=== PATIENT | male | born 1970 | race Caucasian/White ===

== ENCOUNTER 2018-05-14 06:09 | Emergency (ER) | payer SELFPAY ==
[~2018-05-14] VITALS: Ht 185.4 cm; Wt 108.9 kg
[~2018-05-14 06:09] MED LIST: ASP325T; AZIT-21 PO; CLAR-19 PO; GFN600TCR; HYDR-707 PO; HYDR118S10 PO; MUPI1OIN5 NS; PRDM473B PO; SULF1TAB38 PO
--- OUTSIDE RECORDS SUMMARY | 2018-05-14 06:15 | XMS REPORT | Continuity of Care Document ---
Author Author [facility] Address Unknown Phone Unavailable Allergies Active Description Code Type Severity Reaction Onset Reported/Identified Relationship to Patient Clinical Status Yes codeine Drug Allergy N/A N/A 01/11/2009 Yes Penicillins Drug Allergy N/A N/A 01/11/2009 Yes Penicillins [id number] Drug Allergy Mild seizures 04/01/2009 Yes codeine [id number] Drug Allergy Unknown unknown 05/16/2014 Medications There is no data. Problems Date Dx Coded Attending Type Code Diagnosis Diagnosed By 04/01/2008 401.1 HYPERTENSION, BENIGN ESSENTIAL 04/01/2008 DEMETRIO SULTANA APRN 401.1 HYPERTENSION, BENIGN ESSENTIAL 04/15/2008 272.4 HYPERLIPIDEMIA UNSPECIFIED 04/15/2008 305.1 TOBACCO ABUSE 04/15/2008 DEMETRIO SULTANA APRN 272.4 HYPERLIPIDEMIA UNSPECIFIED 04/15/2008 DEMETRIO SULTANA APRN 305.1 TOBACCO ABUSE 01/11/2009 302.72 IMPOTENCE PSYCHOSEXUAL 01/11/2009 DEMETRIO SULTANA APRN 302.72 IMPOTENCE PSYCHOSEXUAL 10/04/2011 466.0 ACUTE BRONCHITIS 10/04/2011 DEMETRIO SULTANA APRN 466.0 ACUTE BRONCHITIS 01/10/2013 133.0 SCABIES 01/10/2013 698.9 PRURITUS NOS 01/10/2013 DEMETRIO SULTANA APRN 133.0 SCABIES 01/10/2013 DEMETRIO SULTANA APRN 698.9 PRURITUS NOS 03/06/2014 DEMETRIO SULTANA APRN 995.3 ALLERGY UNSPECIFIED NOT ELSEWHERE CLASSIFIED 05/16/2014 CAROLINA MALONE MD Ot 787.02 05/16/2014 CAROLINA MALONE MD Ot 787.91 05/16/2014 CAROLINA MALONE MD Ot 789.06 06/02/2014 CAROLINA MALONE MD Ot 922.31 06/02/2014 CAROLINA MALONE MD Ot 959.19 06/02/2014 CAROLINA MALONE MD Ot E000.0 06/02/2014 CAROLINA MALONE MD Ot E849.3 06/02/2014 CAROLINA MALONE MD, Ot E880.9 04/26/2016 ESTRADA PUGA MD Ot R10.84 GENERALIZED ABDOMINAL PAIN 04/26/2016 ESTRADA PUGA MD Ot Z53.21 PROC/TRTMT NOT CRD OUT D/T PT LV BEF SEE 04/30/2016 ESTRADA UPGA MD Ot R10.84 GENERALIZED ABDOMINAL PAIN 04/30/2016 ESTRADA PUGA MD Ot Z53.21 PROC/TRTMT NOT CRD OUT D/T PT LV BEF SEE Procedures There is no data. Results Test Result Range Complete urinalysis with reflex to culture - 04/24/16 23:15 Urine color determination YELLOW NRG Urine clarity determination CLEAR NRG Urine pH measurement by test strip 6 5-9 Specific gravity of urine by test strip 1.015 1.016- 1.022 Urine protein assay by test strip, semi-quantitative NEGATIVE NEGATIVE Urine glucose detection by automated test strip NEGATIVE NEGATIVE Erythrocytes detection in urine sediment by light microscopy 1+ NEGATIVE Urine ketones detection by automated test strip NEGATIVE NEGATIVE Urine nitrite detection by test strip NEGATIVE NEGATIVE Urine total bilirubin detection by test strip NEGATIVE NEGATIVE Urine urobilinogen measurement by automated test strip (mass/volume) NORMAL NORMAL Urine leukocyte esterase detection by dipstick NEGATIVE NEGATIVE Automated urine sediment erythrocyte count by microscopy (number/high power field) [HPF] NRG Automated urine sediment leukocyte count by microscopy (number/high power field ) NONE NRG Bacteria detection in urine sediment by light microscopy NEGATIVE NRG Squamous epithelial cells detection in urine sediment by light microscopy 5-10 NRG Crystals detection in urine sediment by light microscopy NONE NRG Casts detection in urine sediment by light microscopy NONE NRG Mucus detection in urine sediment by light microscopy NEGATIVE NRG Complete urinalysis with reflex to culture NO NRG Encounters ACCT No. Visit Date/Time Discharge Status Pt. Type Provider Facility Loc./Unit Complaint [id number] 03/06/2014 09:38:00 03/06/2014 23:59:59 CLS Outpatient DEMETRIO SULTANA APRN [id number] 01/10/2013 08:08:00 Document Registration [id number] 04/24/2016 23:01:00 04/24/2016 23:30:00 DIS Outpatient VIVIEN HICKS, ESTRADA Akbar [facility] [id number] 06/02/2014 16:54:00 06/02/2014 17:59:00 DIS Emergency CAROLINA MALONE MD [facility] [id number] 05/16/2014 07:07:00 05/16/2014 08:47:00 DIS Emergency CAROLINA MALONE MD [facility]
[2018-05-14] MEDS ORDERED: RX-NEO/POLYB/HC OTIC (CORTISPORIN) SUSP 10 ML BTL OT STA (06:25)
--- NOTE | 2018-05-14 06:31 | ED EENT ---
History of Present Illness General Chief Complaint: Ear Problems Stated Complaint: RT EAR PAIN, WELDING 1 WK AGO GOT SLAG IN EAR Source: patient Exam Limitations: no limitations History of Present Illness Date Seen by Provider: May 14, 2018 Time Seen by Provider: 06:17 Initial Comments This 48-year-old gentleman presents to the emergency room with pain in the right ear. He reports a piece of hot slag fell into his ear while welding about one week ago. He did not have significant pain at that time but this morning he woke with severe pain and decreased hearing in that ear. He denies any other symptoms. He is afebrile. He poured hydrogen peroxide in the ER after onset of pain which made the pain worse. Patient is noted to have high blood pressure. He has had high blood pressure in the past according to his own admission. However, he has not treated and does not follow with a primary care provider. Allergies and Home Medications Allergies Coded Allergies: Penicillins (Unverified Allergy, Mild, seizures, 04/01/09) codeine (Unverified Adverse Reaction, Unknown, unknown, 05/16/14) also had taken PCN but developed rash Home Medications No Active Prescriptions or Reported Meds Patient Home Medication List Home Medication List Reviewed: Yes Review of Systems Review of Systems Constitutional: no symptoms reported Eyes: No Symptoms Reported Ears: See HPI Nose: no symptoms reported Mouth: no symptoms reported Throat: no symptoms reported Respiratory: no symptoms reported Cardiovascular: no symptoms reported Gastrointestinal: no symptoms reported Musculoskeletal: no symptoms reported Skin: no symptoms reported Neurological: No Symptoms Reported Hematologic/Lymphatic: No Symptoms Reported Past Snppddq-Azuujz-Tivuxg Hx Past Med/Social Hx: Reviewed and Corrections made Patient Social History Alcohol Beverage of Choice: Beer Type Used: Cigarettes Recent Foreign Travel: No Contact w/Someone Who Travel: No Recent Hopitalizations: No Seasonal Allergies Seasonal Allergies: Yes Past Medical History Surgeries: Yes (abscess left groin) Respiratory: Yes Sleep Apnea Currently Using CPAP: No Currently Using BIPAP: No Cardiac: Yes High Cholesterol, Hypertension Neurological: No Reproductive Disorders: No Genitourinary: No Gastrointestinal: Yes Chronic Constipation Musculoskeletal: Yes Degenerate Disk Disease Endocrine: No HEENT: No Cancer: No Psychosocial: No Integumentary: No Adverse Reaction/Blood Tranf: No (NA) Physical Exam Vital Signs Vital Signs - First Documented 05/14/18 06:15 Temp 97.1 Pulse 82 Resp 18 B/P (MAP) 168/111 (130) Pulse Ox 98 O2 Delivery Room Air Height, Weight, BMI Height: 6'1" Weight: 250lbs. oz. 113.790288ny; 26.38 BMI Method:Stated General Appearance: WD/WN, no apparent distress, obese Eyes: bilateral eye normal inspection, bilateral eye PERRL, bilateral eye EOMI Ears: right ear tenderness (right ear), right ear TM red; left ear TM normal; bilateral ear auricle normal, bilateral ear canal normal Nose: normal inspection Mouth/Throat: normal mouth inspection, pharynx normal Neck: normal inspection Cardiovascular: regular rate, rhythm, no edema, no murmur Respiratory: lungs clear, normal breath sounds, no respiratory distress, no accessory muscle use Neurologic/Psychiatric: survey statistician II-XII nml as tested, no motor/sensory deficits, alert, normal mood/affect, oriented x 3 Skin: normal color, warm/dry Progress/Results/Core Measures Results/Orders My Orders Progress Progress Note : Progress Note Tympanic membrane is erythematous on the right and ear is tender when the pinna is manipulated. It is uncertain if the patient has mechanical injury to the ear or if he has an otitis media. Cortisporin drops were initiated along with oral antibiotics. Patient was advised to follow up regarding his blood pressure when his pain is controlled. Departure Impression Primary Impression: Injury of tympanic membrane of right ear Qualified Codes: S09.301A - Unspecified injury of right middle and inner ear, initial encounter Additional Impressions: Otalgia of right ear Hypertension Qualified Codes: I10 - Essential (primary) hypertension Disposition: 01 HOME, SELF-CARE Condition: Against Medical Advice Departure-Patient Inst. Decision time for Depature: 06:27 Referrals: [facility] (PCP/Family) Primary Care Physician Patient Instructions: Ear Infections (Otitis Media) (DC) Add. Discharge Instructions: Your right eardrum is very irritated. It is difficult to determine if this is because of injury and exposure to hydrogen peroxide or because of infection. Please place 4 drops of the Cortisporin in the right ear 3 or 4 times daily for the next 5 days. Complete the oral antibiotics as prescribed. Follow-up with a primary care provider if you're not improving over the next couple of days. For pain take ibuprofen up to 600 mg every 6 hours as needed. Add Tylenol ( acetaminophen) up to 1000 mg every 6 hours as needed for additional pain relief. Do not place anything in the ear including Q-tips, hydrogen peroxide, etc. unless prescribed. Return to care if you have worsening symptoms despite treatment. Follow-up with a primary care provider soon as possible regarding your high blood pressure. All discharge instructions reviewed with patient and/or family. Voiced understanding. Scripts No Active Prescriptions or Reported Meds ESTRADA PUGA MD May 14, 2018 06:31
[2018-05-14 06:44] VITALS: BP 178/108
== END 2018-05-14 06:47 | disposition home or self-care (01) ==
LOC: EDUNIT# 06:09 → ER 06:12
DX: S09.301A Unspecified injury of right middle and inner ear, initial encounter (principal); I10 Essential (primary) hypertension; Z88.0 Allergy status to penicillin; Z88.5 Allergy status to narcotic agent; Z87.19 Personal history of other diseases of the digestive system; X58.XXXA Exposure to other specified factors, initial encounter
CPT/HCPCS: 99283

== ENCOUNTER 2019-05-18 18:20 | Emergency (ER) | payer SELFPAY ==
[~2019-05-18] VITALS: Ht 185 cm; Wt 122.0 kg
--- NOTE | 2019-05-18 18:51 | ED Upper Extremity ---
General Chief Complaint: Upper Extremity Stated Complaint: R SHOULDER PAIN Nursing Triage Note: PT TO ED W/ C/O RT SHOULDER PAIN ONSET YESTERDAY. PT REPORTS WAS REACHING ACROSS HIS BODY WHEN HE FELT A "POP" IN HIS RT SHOULDER. REPORTS LIMITED ROM SINCE Nursing Sepsis Screen: No Definite Risk Source: patient Exam Limitations: no limitations History of Present Illness Date Seen by Provider: May 18, 2019 Time Seen by Provider: 18:51 Allergies and Home Medications Allergies Coded Allergies: Penicillins (Unverified Allergy, Mild, seizures, 04/01/09) codeine (Unverified Adverse Reaction, Unknown, unknown, 05/16/14) also had taken PCN but developed rash Home Medications No Active Prescriptions or Reported Meds Past Kevptvu-Hcnzdo-Qzecvz Hx Patient Social History Alcohol Use: Denies Use Alcohol Beverage of Choice: Beer Recreational Drug Use: No Smoking Status: Current Everyday Smoker Type Used: Cigarettes Recent Foreign Travel: No Contact w/Someone Who Travel: No Recent Infectious Disease Expo: No Recent Hopitalizations: No Seasonal Allergies Seasonal Allergies: Yes Past Medical History Surgeries: Yes (abscess left groin) Respiratory: Yes Sleep Apnea Currently Using CPAP: No Currently Using BIPAP: No Cardiac: Yes High Cholesterol, Hypertension Neurological: No Reproductive Disorders: No Genitourinary: No Gastrointestinal: Yes Chronic Constipation Musculoskeletal: Yes Degenerate Disk Disease Endocrine: No HEENT: No Cancer: No Psychosocial: No Integumentary: No Blood Disorders: No Adverse Reaction/Blood Tranf: No (NA) Physical Exam Vital Signs Vital Signs - First Documented 05/18/19 18:29 Temp 36.2 Pulse 96 Resp 20 B/P (MAP) 166/97 (120) Pulse Ox 96 O2 Delivery Room Air Capillary Refill : Less Than 3 Seconds Height, Weight, BMI Height: 6'1.00" Weight: 240lbs. oz. 108.632514sp; 35.00 BMI Method:Stated Progress/Results/Core Measures Results/Orders My Orders Orders - ZE SANDOVAL Shoulder, Right, 3 Views (05/18/19 18:43) Vital Signs/I&O 05/18/19 18:29 Temp 36.2 Pulse 96 Resp 20 B/P (MAP) 166/97 (120) Pulse Ox 96 O2 Delivery Room Air Blood Pressure Mean: 120 Departure Impression Primary Impression: Rotator cuff injury Qualified Codes: S46.001A - Unspecified injury of muscle(s) and tendon(s) of the rotator cuff of right shoulder, initial encounter Additional Impression: Rib fracture Qualified Codes: S22.31XA - Fracture of one rib, right side, initial encounter for closed fracture Disposition: 01 HOME, SELF-CARE Condition: Improved Departure-Patient Inst. Decision time for Depature: 19:44 Referrals: [facility] [place] (PCP/Family) Primary Care Physician Patient Instructions: Rib Fractures in Adults, Rotator Cuff Injury Add. Discharge Instructions: All discharge instructions reviewed with patient and/or family. Voiced under standing. Medications as instructed. Ibuprofen 800 mg by mouth every 8 hours as needed for pain. Ice pack as needed. Arm sling as instructed. Left arm activities only until released by Dr. Schaefer. Follow-up with Dr. Schaefer as an outpatient for a recheck and for further diagnostic studies. Return to the emergency department for worsened symptoms or any other concerns. 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
--- NOTE | 2019-05-18 19:26 | Diagnostic Imaging Report ---
Clinical indication: Patient was lifting firewood and felt right shoulder pop. Patient cannot raise arm from side. Exam: X-ray of the right shoulder, 4 views. Comparison: None. Findings: There is a possible fracture involving the anterior aspect of the right T6 rib seen on the AP view. Right shoulder shows no acute fracture or dislocation. There are degenerative spurs involving the right acromioclavicular joint and inferior glenoid region. Impression: 1: There is possible fracture of the anterior aspect of the right T6 rib. 2: There is degenerative disease of the right shoulder with no gross acute fracture or dislocation. Dictated by: Dictated on workstation # [id number]
[2019-05-18] MEDS ORDERED: HYDR-3812 PO (19:46)
[2019-05-18 19:57] VITALS: BP 166/97
== END 2019-05-18 19:58 | disposition home or self-care (01) ==
LOC: EDUNIT# 18:20 → ER 18:21
DX: S22.31XA Fracture of one rib, right side, initial encounter for closed fracture (principal); S46.001A Unspecified injury of muscle(s) and tendon(s) of the rotator cuff of right shoulder, initial encounter; I10 Essential (primary) hypertension; E78.00 Pure hypercholesterolemia, unspecified; F17.210 Nicotine dependence, cigarettes, uncomplicated; Z88.0 Allergy status to penicillin; Z88.5 Allergy status to narcotic agent; X50.1XXA Overexertion from prolonged static or awkward postures, initial encounter
CPT/HCPCS: 73030

== ENCOUNTER → 2019-07-01 | Outpatient (CLI) | payer SELFPAY ==
[~2019-07-01] MED LIST changes: +HYDR-3812 PO
--- NOTE | 2019-07-01 12:03 | Diagnostic Imaging Report ---
PROCEDURE: MRI right joint upper extremity without contrast. TECHNIQUE: Multiplanar, multisequence non contrast-enhanced MRI of the right shoulder was accomplished. INDICATION: Right shoulder pain. COMPARISON: Shoulder radiographs of 05/18/2019. FINDINGS: Examination is limited as patient requested early termination due to pain. Allowing for this, the axial and sagittal sequences were able to be obtained. These demonstrate a full-thickness tear of the supraspinatus with the torn fibers retracted to the level of the mid humeral head. Mild fatty atrophy of the supraspinatus is present. Infraspinous also has full-thickness tear in its anterior one-half. Teres minor has atrophy present but remains intact. Subscapularis remains intact. Long head of the biceps is normal in position and the intracapsular segment is intact. On limited non-arthrogram imaging, there are no features of displaced labral tear. No fracture concerning for focal osseous lesions. 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 Fluid within the glenohumeral joint extends into the subacromial and subdeltoid space via the full-thickness supraspinatus tear. IMPRESSION: 1. Limited examination as the patient requested early termination due to pain. 2. Allowing for limitations, the provided imaging does confirm a full-thickness tear of the supraspinatus retracted to the level of the mid humeral head. This has associated mild muscle belly atrophy 3. There is also full-thickness tear extending into the anterior one-half of the infraspinatus without associated muscle belly atrophy. 4. Hypertrophic degenerative arthritis of the acromioclavicular joint could predispose to subacromial impingement. Dictated by: Dictated on workstation # [id number]
== END ==
LOC: RAD 09:27
PROVIDERS: ATTEND Physician Assistant
DX: M75.101 Unspecified rotator cuff tear or rupture of right shoulder, not specified as traumatic (principal); M19.011 Primary osteoarthritis, right shoulder
CPT/HCPCS: 73221

== ENCOUNTER 2020-06-17 18:07 | Emergency (ER) | payer SELFPAY ==
[~2020-06-17 18:07] MED LIST changes: +ACHD5005 PO; -HYDR-3812 PO
--- NOTE | 2020-06-17 18:26 | NUR ---
This RN to waiting room et called for pt. Screener at door reports she witnessed pt walk to his car w/o reporting anything to her.
[2020-06-18] MEDS ORDERED: LISI1TAB29 PO (07:51)
[2020-06-18] MEDS ORDERED: ACHD5005 PO (12:42)
[2020-06-18] MEDS ORDERED: AMOX-355 PO (12:42)
== END 2020-06-17 18:26 | disposition left against medical advice (07) ==
LOC: EDUNIT# 18:07 → ER 18:08
DX: R04.0 Epistaxis (principal); Z20.828 Contact with and (suspected) exposure to other viral communicable diseases

== ENCOUNTER 2020-06-18 06:05 | Day surgery (SDC) | payer SELFPAY ==
[~2020-06-18] VITALS: Ht 185 cm; Wt 117.9 kg
[2020-06-18] VITALS (16 sets, daily range): BP systolic 97–147; BP diastolic 59–94
[2020-06-18] MEDS ORDERED: amLODIPine 10 MG (NORVASC) TAB PO ONE (06:15)
[2020-06-18 06:35] LABS: BASOPHILS % (AUTO) 0 % (0-10); EOSINOPHILS # (AUTO) 0.2 10^3/uL (0.0-0.3); EOSINOPHILS % (AUTO) 3 % (0-10); HEMATOCRIT 44 % (40-54); HEMOGLOBIN 14.3 g/dL (13.3-17.7); LYMPHOCYTES % (AUTO) 35 % (12-44); MEAN CORPUSCULAR HEMOGLOBIN 32 pg (25-34); MEAN CORPUSCULAR HGB CONC 33 g/dL (32-36); MEAN CORPUSCULAR VOLUME 98 fL (80-99); MEAN PLATELET VOLUME 10.6 fL (9.0-12.2); MONOCYTES # (AUTO) 0.6 10^3/uL (0.0-1.0); MONOCYTES % (AUTO) 7 % (0-12); NEUTROPHILS # (AUTO) 4.7 10^3/uL (1.8-7.8); NEUTROPHILS % (AUTO) 55 % (42-75); PLATELET COUNT 223 10^3/uL (130-400); WHITE BLOOD COUNT 8.6 10^3/uL (4.3-11.0)
[2020-06-18 06:49] LABS: CHLORIDE 102 MMOL/L (98-107); POTASSIUM 4.1 MMOL/L (3.6-5.0); SODIUM 137 MMOL/L (135-145)
[2020-06-18 06:50] LABS: CALCIUM 8.9 MG/DL (8.5-10.1)
[2020-06-18 06:51] LABS: GLUCOSE 238 MG/DL (70-105); INR 0.9 (0.8-1.4); PROTHROMBIN TIME PATIENT 12.7 SEC (12.2-14.7)
[2020-06-18 06:52] LABS: CARBON DIOXIDE 24 MMOL/L (21-32)
--- NOTE | 2020-06-18 06:53 | ED EENT ---
History of Present Illness General Chief Complaint: Nasal Problems Stated Complaint: NOSE BLEED Nursing Triage Note: TO ED VIA EMS WITH C/O NOSE BLEED. PT LEFT WITHOUT BEING SEEN FROM THIS ER LAST NIGHT AND PRESENTED TO [facility] AND DRAIN/JONES CATHETER TUBE PLACED TO RIGHT NARE. 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 Source: patient Exam Limitations: no limitations History of Present Illness Date Seen by Provider: Jun 18, 2020 Time Seen by Provider: 06:06 Initial Comments This 50-year-old gentleman presents to the emergency room via EMS with complaint of a nosebleed. He initially presented to this ER but left because of wait times. He then presented to [facility]. A Jones catheter was placed in his right nostril and he was discharged home. Patient reports the bleeding started on the left side but then seemed to be bilateral. He also has posterior bleeding into the pharynx. He reports [facility] initially placed a Jones catheter in both nostrils but he could not breathe and the left one was therefore removed. Patient is noted to be hypertensive with a blood pressure of 162/100. He denies any known history of hypertension. He does not take any blood thinning medic ations. He denies ever having problems with a nosebleed in the past. Allergies and Home Medications Allergies Coded Allergies: Penicillins (Unverified Allergy, Mild, seizures, 04/01/09) codeine (Unverified Adverse Reaction, Unknown, unknown, 05/16/14) also had taken PCN but developed rash Home Medications Amoxicillin/Potassium Clav 1 Each Tablet, 1 EACH PO BID Prescribed by: PERLA QUESADA on 06/18/20 1242 Hydrocodone/Acetaminophen 1 Each Tablet, 1-2 EACH PO Q4H PRN for pain Prescribed by: PERLA QUESADA on 06/18/20 1242 Lisinopril/Hydrochlorothiazide 1 Each Tablet, 1 EACH PO DAILY Prescribed by: ESTRADA JOY on 06/18/20 5108 Patient Home Medication List Home Medication List Reviewed: Yes Review of Systems Review of Systems Constitutional: no symptoms reported Eyes: No Symptoms Reported Ears: No Symptoms Reported Nose: see HPI Mouth: no symptoms reported Throat: no symptoms reported Respiratory: no symptoms reported Cardiovascular: see HPI Gastrointestinal: no symptoms reported Musculoskeletal: no symptoms reported Skin: no symptoms reported Neurological: No Symptoms Reported Hematologic/Lymphatic: No Symptoms Reported Past Cgjrdtq-Ckbkeh-Sfdjpr Hx Past Med/Social Hx: Reviewed Nursing Past Med/Soc Hx Patient Social History Alcohol Use: Occasionally Uses Number of Drinks Today: AA Alcohol Beverage of Choice: Beer Recreational Drug Use: No Type Used: Cigarettes Recent Foreign Travel: No Contact w/Someone Who Travel: No Recent Infectious Disease Expo: No Recent Hopitalizations: No Physical Abuse: No Sexual Abuse: No Mistreated: No Fear: No Seasonal Allergies Seasonal Allergies: Yes Past Medical History Surgeries: Yes (abscess left groin) Respiratory: Yes Sleep Apnea Currently Using CPAP: No Currently Using BIPAP: No Cardiac: Yes High Cholesterol, Hypertension Neurological: No Reproductive Disorders: No Genitourinary: No Gastrointestinal: Yes Chronic Constipation Musculoskeletal: Yes Degenerate Disk Disease Endocrine: No HEENT: No Cancer: No Psychosocial: No Integumentary: No Blood Disorders: No Adverse Reaction/Blood Tranf: No (NA) Family Medical History No Pertinent Family Hx Physical Exam Vital Signs Vital Signs - First Documented 06/18/20 06/18/20 06:08 10:02 Temp 35.3 Pulse 92 Resp 16 B/P (MAP) 162/100 (120) Pulse Ox 99 O2 Delivery Room Air Height, Weight, BMI Height: 6'1.00" Weight: 240lbs. oz. 108.752893gh; 34.00 BMI Method:Stated General Appearance: WD/WN, no apparent distress, obese Eyes: bilateral eye normal inspection, bilateral eye PERRL, bilateral eye EOMI Ears: bilateral ear auricle normal Nose: active bleeding (From the left nostril), other (There is a small amount of fresh red blood in the left nostril. There may still be active bleeding. There is a small amount of blood in the posterior pharynx as well. 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 as tested, no motor/sensory deficits, alert, normal mood/affect, oriented x 3 Skin: normal color, warm/dry Progress/Results/Core Measures Results/Orders Lab Results Laboratory Tests Test 06/18/20 06:30 06/18/20 10:25 06/18/20 13:02 Range/Units White Blood Count 8.6 4.3-11.0 10^3/uL Red Blood Count 4.44 4.30-5.52 10^6/uL Hemoglobin 14.3 13.3-17.7 g/dL Hematocrit 44 40-54 % Mean Corpuscular Volume 98 80-99 fL Mean Corpuscular Hemoglobin 32 25-34 pg Mean Corpuscular Hemoglobin Concent 33 32-36 g/dL Red Cell Distribution Width 12.3 10.0-14.5 % Platelet Count 223 130-400 10^3/uL Mean Platelet Volume 10.6 9.0-12.2 fL Immature Granulocyte % (Auto) 0 % Neutrophils (%) (Auto) 55 42-75 % Lymphocytes (%) (Auto) 35 12-44 % Monocytes (%) (Auto) 7 0-12 % Eosinophils (%) (Auto) 3 0-10 % Basophils (%) (Auto) 0 0-10 % Neutrophils # (Auto) 4.7 1.8-7.8 10^3/uL Lymphocytes # (Auto) 3.0 1.0-4.0 10^3/uL Monocytes # (Auto) 0.6 0.0-1.0 10^3/uL Eosinophils # (Auto) 0.2 0.0-0.3 10^3/uL Basophils # (Auto) 0.0 0.0-0.1 10^3/uL Immature Granulocyte # (Auto) 0.0 0.0-0.1 10^3/uL Prothrombin Time 12.7 12.2-14.7 SEC INR Comment 0.9 0.8-1.4 Activated Partial Thromboplast Time 30 24-35 SEC Sodium Level 137 135-145 MMOL/L Potassium Level 4.1 3.6-5.0 MMOL/L Chloride Level 102 98-107 MMOL/L Carbon Dioxide Level 24 21-32 MMOL/L Anion Gap 11 5-14 MMOL/L Blood Urea Nitrogen 12 7-18 MG/DL Creatinine 1.03 0.60-1.30 MG/DL Estimat Glomerular Filtration Rate > 60 BUN/Creatinine Ratio 12 Glucose Level 238 H 70-105 MG/DL Calcium Level 8.9 8.5-10.1 MG/DL Glucometer 216 H 70-110 MG/DL My Orders Orders - ESTRADA PUGA MD Amlodipine Tablet (Norvasc Tablet) (06/18/20 06:15) Oxymetazoline 0.05% Nasal [place] (Afrin 0. (06/18/20 09:00) Basic Metabolic Panel (06/18/20 06:17) Cbc With Automated Diff (06/18/20 06:17) Protime With Inr (06/18/20 06:17) Partial Thromboplastin Time (06/18/20 06:17) Promethazine Injection (Phenergan Injec (06/18/20 07:55) Tranexamic Acid Injection (Cyklokapron I (06/18/20 08:00) Tranexamic Acid Injection (Cyklokapron I (06/18/20 08:00) Diphenhydramine Injection (Benadryl Inje (06/18/20 09:30) Fentanyl Injection (Sublimaze Injection (06/18/20 09:30) Ed Iv/Invasive Line Start (06/18/20 09:28) Ekg Tracing (06/18/20 09:31) Propofol Injection (Diprivan Injection) (06/18/20 09:43) Dexamethasone Injection (Decadron Inje (06/18/20 09:43) Ondansetron Injection (Zofran Injectio (06/18/20 09:43) Lidocaine 2% Pf 5 Ml (Xylocaine 2% Pf) (06/18/20 09:43) Sevoflurane (15 Min) Inhal [place] (Ultane ( (06/18/20 09:43) Fentanyl Injection (Sublimaze Injection (06/18/20 09:44) Midazolam Injection (Versed Injection) (06/18/20 09:44) Medications Given in ED Current Medications Medications Dose Ordered Sig/Jed Route Start Time Stop Time Status Last Admin Dose Admin Amlodipine Besylate 10 mg ONCE ONCE PO 06/18/20 06:15 06/18/20 06:17 DC 06/18/20 06:18 10 MG Diphenhydramine HCl 25 mg ONCE ONCE IVP 06/18/20 09:30 06/18/20 09:31 DC 06/18/20 10:02 25 MG Fentanyl Citrate 50 mcg ONCE ONCE IVP 06/18/20 09:30 06/18/20 09:31 DC 06/18/20 10:02 50 MCG Promethazine HCl 25 mg STK-MED ONCE .ROUTE 06/18/20 07:55 06/18/20 07:57 DC 06/18/20 08:03 25 MG Tranexamic Acid 10 MG/KG ONCE ONCE IV 06/18/20 08:00 06/18/20 08:01 DC 06/18/20 08:04 10 MG Vital Signs/I&O 06/18/20 06/18/20 06/18/20 06/18/20 06:08 10:02 11:21 11:21 Temp 35.3 36.2 Pulse 92 88 Resp 16 16 12 B/P (MAP) 162/100 (120) 150/100 (120) 97/59 (72) Pulse Ox 99 93 O2 Delivery Room Air Face Tent Face Tent O2 Flow Rate 10 10 06/18/20 06/18/20 06/18/20 06/18/20 11:30 11:35 11:40 11:50 Resp 12 27 15 B/P (MAP) 106/64 (78) 107/66 (80) 122/94 (103) Pulse Ox 96 96 95 O2 Delivery Face Tent Face Tent Face Tent Face Tent O2 Flow Rate 10 10 10 10 06/18/20 06/18/20 06/18/20 06/18/20 11:50 12:00 12:00 12:10 Resp 10 B/P (MAP) 107/76 (86) Pulse Ox 90 O2 Delivery Face Tent Face Tent Nasal Cannula Nasal Cannula O2 Flow Rate 10 10 3 3 06/18/20 06/18/20 06/18/20 06/18/20 12:10 12:15 12:45 13:15 Temp 36.6 36.1 36.0 36.0 Pulse 88 88 85 Resp 20 B/P (MAP) 106/73 (84) 109/75 102/70 114/65 Pulse Ox 92 92 95 90 O2 Delivery Nasal Cannula Nasal Cannula Nasal Cannula Room Air O2 Flow Rate 3 3.00 3.00 06/18/20 06/18/20 06/18/20 06/18/20 13:45 14:15 14:45 15:15 Temp 36.0 36.0 36.6 37.2 Pulse 86 84 90 88 Resp 20 B/P (MAP) 117/67 147/69 128/82 142/81 Pulse Ox 92 94 94 94 O2 Delivery Room Air Room Air Room Air Room Air 11/20/20 15:45 Temp 37.2 Pulse 93 Resp 20 B/P (MAP) 135/75 Pulse Ox 93 O2 Delivery Room Air Blood Pressure Mean: 120 Progress Progress Note #1: Time: 06:53 Progress Note Patient was immediately seen and examined. He was noted to have multiple hypert ensive blood pressure measurements. Norvasc 10 mg was administered. Afrin was used to flood the left nostril and direct pressure is being applied. We will monitor and take further steps if necessary. Progress Note #2: Time: 07:47 Progress Note Hypertension was treated with Norvasc and blood pressures did improve. Bleeding stopped after treatment with Afrin. The Jones bulb in the right nostril was removed without any consequence. There was only 1 mL of fluid within the bulb. Patient was informed of his hyperglycemia. A prescription for lisinopril/hydrochlorothiazide was provided for treatment of hypertension. He was strongly advised to seek care with a primary care provider soon as possible. Progress Note #3: Time: 08:33 Progress Note Unfortunately, the patient began bleeding when he stood up for discharge. He attempted to spray Afrin but could not successfully spray and apply pressure due to gagging from posterior bleeding. A Phenergan injection was administered to help with the gagging. Rapid Rhino was then placed in the right nostril where the active bleeding was most prominent. The rapid Rhino was soaked in water and TXA. It was inflated with 6 mL of air. Patient complained that this was too tight to several minutes after application. 2 mL was withdrawn. Progress Note #4: Time: 09:30 Progress Note Patient began bleeding from the left nostril when he was being prepped for discharge. A total of 3 more mL of air was placed in the rapid Rhino. Bleeding eventually stopped. Patient became agitated and was trying to withdraw air from the rapid Rhino on his own when staff was not present in the room. Bleeding has now stopped. Dr. Martinez was consulted as patient was to follow-up with him in the clinic today anyway. Dr. Martinez presented to the ER to evaluate the patient. He plans to take the patient to the OR to examine and hopefully treat the bleed. Patient may be agitated from the Phenergan. He will receive Benadryl and fentanyl. Prior to decision to go to surgery, I did have a discussion with the patient about his hypertension, hyperglycemia, obesity, and sleep apnea. Prescription for lisinopril/HCTZ was provided. He was advised to establish with a primary care provider soon as possible to address the hyperglycemia and other issues. He was advised to eat a low sugar, low carbohydrate diet. Initial ECG Impression Date: Jun 18, 2020 Initial ECG Impression Time: 09:34 Initial ECG Rate: 91 Initial ECG Rhythm: Normal Sinus Initial ECG Intervals: Normal Comment Normal sinus rhythm with no ST elevation or depression. No abnormal intervals or axis deviation. Departure Impression Primary Impression: Epistaxis Additional Impressions: Hypertension Qualified Codes: I10 - Essential (primary) hypertension Hyperglycemia Disposition: 01 HOME, SELF-CARE Condition: Improved Departure-Patient Inst. Decision time for Depature: 07:46 Referrals: [facility] [place] (PCP/Family) Primary Care Physician Patient Instructions: Diabetes and Diet, High Blood Pressure (DC), Nosebleeds (DC) Add. Discharge Instructions: All discharge instructions reviewed with patient and/or family. Voiced understanding. Scripts Amoxicillin/Potassium Clav (Augmentin 500-125 Tablet) 1 Each Tablet 1 EACH PO BID, #14 TAB 1 Refill Prov: PRICE MARTINEZ MD 06/18/20 Hydrocodone/Acetaminophen (Hydrocodone-Acetamin 5-325 mg) 1 Each Tablet 1-2 EACH PO Q4H PRN for pain, #40 TAB 0 Refills Prov: PRICE MARTINEZ MD 06/18/20 Lisinopril/Hydrochlorothiazide (Lisinopril-Hctz 10-12.5 mg Tab) 1 Each Tablet 1 EACH PO DAILY, #30 TAB Prov: ESTRADA PUGA MD 06/18/20 Copy Copies To 1: PRICE MARTINEZ MD, JOSHUA T MD Jun 18, 2020 06:53
[2020-06-18 06:55] LABS: BUN/CREATININE RATIO 12; CREATININE SERUM 1.03 MG/DL (0.60-1.30); GFR ESTIMATED > 60
[2020-06-18] MEDS ORDERED: LISI1TAB29 PO (07:51)
[2020-06-18] MEDS ORDERED: PROMETHAZINE INJ 25 MG/ML (PHENERGAN) AMP ONE (07:55)
[2020-06-18] MEDS ORDERED: TRANEXAMIC ACID 100 MG/ML 10 ML INJECTION IV ONE ×2 (08:00)
--- NOTE | 2020-06-18 08:00 | NUR ---
R NARES HAS STARTED BLEEDING AT AGAIN. PT GAGGING AND NAUSEATED FROM BLOOD, NOSE BLEEDING FROM R NARES. NOTIFIED
--- NOTE | 2020-06-18 08:06 | NUR ---
5.5 rapid rhino w txa inserted into r nares w 6cc air in bulb. by DR CHI
--- NOTE | 2020-06-18 08:36 | NUR ---
2CC AIR REMOVED FROM RAPID RHINO
--- NOTE | 2020-06-18 08:48 | NUR ---
1CC AIR PLACED BACK IN RAPID RHINO BY
[2020-06-18] MEDS ORDERED: OXYMETAZOLINE (AFRIN) 0.05% NA 30 ML BTL SCH (09:00)
--- NOTE | 2020-06-18 09:08 | NUR ---
WAITING FOR DR MASCORRO OFFICE TO CALL BACK WITH CONCERNS WITH PATIENT.
--- NOTE | 2020-06-18 09:23 | NUR ---
DR MASCORRO TO ROOM
--- NOTE | 2020-06-18 09:23 | NUR ---
PATIENT REQUESTING TO TALK WITH DR WELCH.
[2020-06-18] MEDS ORDERED: diphenhydrAMINE 50 MG/ML INJ (BENADRYL) IVP ONE (09:30)
[2020-06-18] MEDS ORDERED: fentaNYL INJECTION 100 MCG/2 ML AMP IVP ONE (09:30)
--- NOTE | 2020-06-18 09:32 | NUR ---
CONSENT FOR SURGERY SIGNED BY PT
[2020-06-18] MEDS ORDERED: LIDOCAINE/EPI 1%-1:100,000 (XYLOCAINE) 20ML ONE (09:34)
[2020-06-18] MEDS ORDERED: MUPIROCIN 2% OINT 22 GM (BACTROBAN) TUBE ONE (09:34)
[2020-06-18] MEDS ORDERED: COCAINE HCL 4% 2 ML SYR ONE (09:34)
[2020-06-18] MEDS ORDERED: LIDOCAINE PF 2% 5 ML (XYLOCAINE) VIAL ONE ×2 (09:43→11:32)
[2020-06-18] MEDS ORDERED: ONDANSETRON 4 MG/2 ML (SDV) Z0FRAN ONE ×3 (09:43→11:32)
[2020-06-18] MEDS ORDERED: proPOfol 200 MG/20 ML (DIPRIVAN) VIAL IV ONE ×2 (09:43→11:32)
[2020-06-18] MEDS ORDERED: SEVOFLURANE (ULTANE) 15 ML INHAL SOLN ONE ×4 (09:43→11:32)
[2020-06-18] MEDS ORDERED: MIDAZOLAM 2 MG/2 ML (VERSED) VIAL ONE (09:44)
[2020-06-18] MEDS ORDERED: fentaNYL INJECTION 100 MCG/2 ML AMP ONE (09:44)
[2020-06-18] MEDS ORDERED: SUCCINYLCHOLINE INJ 100 MG/5 ML SYR/VIAL ONE (09:49)
[2020-06-18] MEDS ORDERED: PHENYLEPHRINE 0.5% NASAL SPR (NEO-SYNEPHRINE) REG ONE (09:49)
--- NOTE | 2020-06-18 09:50 | NUR ---
UDATE TO DAUGHTER THAT PATIENT WAS GOING TO SURG
[2020-06-18] MEDS ORDERED: LACTATED RINGERS 1,000 ML IV PRN (10:00)
--- NOTE | 2020-06-18 10:17 | Progress Note-Pre Operative ---
Pre-Operative Progress Note H&P Reviewed The H&P was reviewed, patient examined and no changes noted. Date Seen by Provider: Jun 18, 2020 Time Seen by Provider: 10:00 Date H&P Reviewed: Jun 18, 2020 Time H&P Reviewed: 10:00 Pre-Operative Diagnosis: Bilateral Posterior Epistaxis PRICE MASCORRO MD Jun 18, 2020 10:17
--- NOTE | 2020-06-18 10:17 | Progress Note ---
Standard Progress Note Progress Notes/Assess & Plan Date Seen by a Provider: Jun 18, 2020 Time Seen by a Provider: 09:30 Progress/Assessment & Plan ENT-History and Physical cc: Recurrent Epistaxis HPI: Patient presetned to the ER at 6am with recurrence of his nosebleed. Previously seen in [facility] ER laast PM with nasal packing. ATtempts at packing were unsuccessful and he has continued to0 bleed. Buy report his HGB is 14 . No prior history of epistaxis/ on no blood thinners PMHX: HTN ALL-NKDA Meds: none currently Exam Nose-packing in nose on right no bleeding seen on the left a t this time-he states when it started it was on the left side and came anteriorly Oral Cavity-old blodo seen in the posterior oropharynx Neck-large neck-negative IMP: Recurrent Epistaxis-? Bilateral or Posterior Rec: 1. Patient has had persistent bleeding despite multiple attempts at packing. Alen lneed eval in OR under anesthesia with cuaterization and packing Risks and benefits discussed. Will proceed to the OR emergently as he is still actively bleeding. Final Diagnosis Posterior Epistaxis PRICE MASCORRO MD Jun 18, 2020 10:17
[2020-06-18] MEDS ORDERED: D5 1/2 NS W/KCL 20 MEQ/L 1,000 ML IV SCH (11:11)
--- NOTE | 2020-06-18 11:11 | Progress Note-Post Operative ---
Post-Operative Progess Note Surgeon (s)/Coal Pulverizing Operator (s) Surgeon PRICE MASCORRO MD Coal Pulverizing Operator n/a Pre-Operative Diagnosis Bilateral Posterior Epistaxis Post-Operative Diagnosis same Post-Op Procedure Note Date of Procedure: Jun 18, 2020 Name of Procedure Performed: Bilateral Endoscopic Repair of Epistaxis Description & Findings Description and Findings: n/a Anesthesia Type get Estimated Blood Loss minimal Packing none. Specimen(s) collected/removed none PRICE MASCORRO MD Jun 18, 2020 11:11
[2020-06-18] MEDS ORDERED: ACETAMINOPHEN 500 MG TAB (TYLENOL) PO PRN (11:15)
[2020-06-18] MEDS ORDERED: PHENYLEPHRINE 0.5% NASAL SPR (NEO-SYNEPHRINE) REG PRN (11:15)
[2020-06-18] MEDS ORDERED: HYDROcodone/APAP 5 MG/325 MG (LORTAB) TAB PO PRN ×2 (11:15)
[2020-06-18] MEDS ORDERED: PHENYLEPHRINE 100 MCG/ML 10 ML (ANESTHESIA) SYR ONE (11:32)
[2020-06-18] MEDS ORDERED: ACHD5005 PO (12:42)
[2020-06-18] MEDS ORDERED: AMOX-355 PO (12:42)
--- NOTE | 2020-06-18 13:10 | NUR ---
PATIENT FOUND WALKING IN THE HALLS, FULLY DRESSED, STATING HE IS READY TO GO. PATIENT APPEARED TO BE DISORIENTED TO SURROUNDINGS. PATIENT THOUGHT HE WAS IN [place] AND HAD ABDOMINAL SURGERY. THIS RN AND DENTON IVORY, REORIENTED PATIENT, ASSISTED HIM BACK TO HIS ROOM. THIS RN NOTICED IV ACCESS WAS NO LONGER IN. PATIENT HAD SOME BLEEDING FROM LEFT NARE. PATIENT VOIDED APPROXIMATELY 200ML. THIS RN AND DENTON IVORY, CLEANED PATIENT UP AND BUTCH CODY OBTAINED A BLOOD SUGAR DUE TO REPORTEDLY BEING DIABETIC. PATIENT NO LONGER BLEEDING FROM NARE, BLOOD SUGAR WAS 216. THIS RN NOTIFIED DR. MASCORRO OF SITUATION, NO NEW ORDERS RECEIVED AT THIS TIME. THIS RN CALLED PATIENT'S DAUGHTER TO UPDATE HER PER PATIENT REQUEST. WILL CONTINUE TO MONITOR.
--- NOTE | 2020-06-18 13:55 | NUR ---
PATIENT LYING ON HIS LEFT SIDE, NO S/S OF BLEEDING AT THIS TIME. PATIENT UP TO VOID X1.
--- NOTE | 2020-06-18 15:00 | NUR ---
Patient lying on his right side. Up to void x1. No s/s of bleeding, patient denies pain.
--- NOTE | 2020-06-18 15:50 | NUR ---
Patient up to void x1. No S/S of bleeding. Sitting in the chair. Patient ate some cris crackers and applesauce, tolerated well.
--- NOTE | 2020-06-18 16:10 | NUR ---
Dr. Martinez called, checked on patient. No new orders, okay for patient to go home. This RN called daughter to update. Patient has no S/S of bleeding.
--- NOTE | 2020-07-06 07:28 | Anesthesia-General Post-Op ---
General Patient Condition Mental Status/LOC: Same as Preop Cardiovascular: Satisfactory Nausea/Vomiting: Absent Respiratory: Satisfactory Pain: Controlled Complications: Absent Post Op Complications Complications None Follow Up Care/Instructions Patient Instructions None needed. Anesthesia/Patient Condition Patient Condition Patient is doing well, no complaints, stable vital signs, no apparent adverse anesthesia problems. No complications reported per nursing. SUHA DESIR CRNA Jul 06, 2020 07:28
== END 2020-06-18 16:30 | disposition home or self-care (01) ==
LOC: EDUNIT# 06:05 → ER 06:06 → SDC 09:32
PROVIDERS: ATTEND Otolaryngology Otolaryngology/Facial Plastic Surgery
DX: R04.0 Epistaxis (principal); I48.91 Unspecified atrial fibrillation; I10 Essential (primary) hypertension; K21.9 Gastro-esophageal reflux disease without esophagitis; Z79.899 Other long term (current) drug therapy; Z88.0 Allergy status to penicillin; Z88.5 Allergy status to narcotic agent; Z20.828 Contact with and (suspected) exposure to other viral communicable diseases
CPT/HCPCS: 31238; 80048; 82962; 85025; 85610; 85730; 93005; 96374; 96375; 99285; U0002; 36415; 87635

== ENCOUNTER 2020-07-15 12:13 | Emergency (ER) | payer SELFPAY ==
[~2020-07-15] VITALS: Ht 185 cm; Wt 127.0 kg
[~2020-07-15 12:13] MED LIST changes: +AMOX-355 PO; +LISI1TAB29 PO
[2020-07-15 12:20] VITALS: BP 150/90
[2020-07-15] MEDS ORDERED: cefTRIAXone 1,000 MG/2.86 ml vial (IM ONLY) IM STA (12:29)
[2020-07-15] MEDS ORDERED: KETOROLAC 60 MG/2 ML VIAL IM ONE (12:30)
[2020-07-15] MEDS ORDERED: LIDOCAINE 1% INJ 20 ML 20 ML VIAL INJ ONE (12:30)
--- NOTE | 2020-07-15 12:38 | ED EENT ---
History of Present Illness General Chief Complaint: Nasal Problems Stated Complaint: S/P NASAL SX, SWOLLEN Source: patient Exam Limitations: no limitations History of Present Illness Date Seen by Provider: Jul 15, 2020 Time Seen by Provider: 12:21 Initial Comments The patient presents to the ER by private conveyance with chief complaint of 2 days progressively worsening swelling and pain in his nose. He says about a week or 2 ago he had a surgery by Dr. Martinez for his sinuses. He is not on antibiotics. He is not having fevers nausea vomiting or difficulty breathing. He called Dr. Martinez and has an appointment Sunday morning and was told to come to the ER if he got worse. Allergies and Home Medications Allergies Coded Allergies: Penicillins (Unverified Allergy, Mild, seizures, 04/01/09) codeine (Unverified Adverse Reaction, Unknown, unknown, 05/16/14) also had taken PCN but developed rash Home Medications Amoxicillin/Potassium Clav 1 Each Tablet, 1 EACH PO BID Prescribed by: PERLA QUESADA on 06/18/20 1242 Hydrocodone/Acetaminophen 1 Each Tablet, 1-2 EACH PO Q4H PRN for pain Prescribed by: PERLA QUESADA on 06/18/20 1242 Lisinopril/Hydrochlorothiazide 1 Each Tablet, 1 EACH PO DAILY Prescribed by: ESTRADA JOY on 06/18/20 0751 Ondansetron 4 Mg Tab.rapdis, 4 MG PO Q6H PRN for NAUSEA/VOMITING Prescribed by: KRZYSZTOF JEFFERSON on 07/15/20 1239 Sulfamethoxazole/Trimethoprim 1 Each Tablet, 1 EACH PO BID Prescribed by: KRZYSZTOF JEFFERSON on 07/15/20 1239 Patient Home Medication List Home Medication List Reviewed: Yes Review of Systems Review of Systems Constitutional: No chills, No diaphoresis Eyes: Denies Blindness, Denies Blurred Vision Ears: Denies Dizziness, Denies Pain Nose: see HPI; denies clots, denies congestion, denies epistaxis; pain; denies bloody discharge, denies purulent discharge Mouth: denies clots, denies loose teeth Throat: denies pain, denies swelling Respiratory: No hemoptysis, No orthopnea Cardiovascular: No chest pain, No edema Past Zfjxogx-Efwbbj-Bezhgn Hx Patient Social History Alcohol Use: Occasionally Uses Alcohol Beverage of Choice: Beer Recreational Drug Use: No Smoking Status: Current Everyday Smoker Type Used: Cigarettes Recent Foreign Travel: No Contact w/Someone Who Travel: No Recent Hopitalizations: No Seasonal Allergies Seasonal Allergies: Yes Past Medical History Surgeries: Yes (abscess left groin) Respiratory: Yes Sleep Apnea Currently Using CPAP: No Currently Using BIPAP: No Cardiac: Yes High Cholesterol, Hypertension Neurological: No Reproductive Disorders: No Genitourinary: No Gastrointestinal: Yes Chronic Constipation Musculoskeletal: Yes Degenerate Disk Disease Endocrine: No HEENT: No Cancer: No Psychosocial: No Integumentary: No Blood Disorders: No Adverse Reaction/Blood Tranf: No (NA) Family Medical History No Pertinent Family Hx Physical Exam Vital Signs Vital Signs - First Documented 07/15/20 12:20 Temp 36.6 Pulse 101 Resp 20 B/P (MAP) 150/90 (110) Pulse Ox 97 Height, Weight, BMI Height: 6'1.00" Weight: 240lbs. oz. 108.098611sd; 34.00 BMI Method:Stated General Appearance: WD/WN, mild distress Eyes: bilateral eye normal inspection, bilateral eye PERRL, bilateral eye EOMI Ears: bilateral ear auricle normal, bilateral ear canal normal, bilateral ear TM normal Nose: other (Soft tissue cellulitic appearance of the ala of the nose and tenderness to the surrounding soft tissue with erythema but no induration. No purulence from the nose. Mild green mucus on rather inflamed, moderately enlarged turbinates bilaterally with healthy scar tissue seen posteriorly but no exudate. No epistaxis.) Neck: non-tender, full range of motion, supple, normal inspection Cardiovascular: normal peripheral pulses, regular rate, rhythm Respiratory: no respiratory distress, no accessory muscle use Progress/Results/Core Measures Results/Orders My Orders Orders - KRZYSZTOF JEFFERSON Ceftriaxone For Im Use (Rocephin For Im (07/15/20 12:29) Ketorolac Injection (Toradol Injection) (07/15/20 12:30) Lidocaine 1% Inj 20 Ml (Xylocaine 1% Inj (07/15/20 12:30) Vital Signs/I&O 07/15/20 12:20 Temp 36.6 Pulse 101 Resp 20 B/P (MAP) 150/90 (110) Pulse Ox 97 Progress Progress Note : Time: 12:34 Progress Note Barely tachycardic 101 probably due to pain. He is not septic at this time. Plan to just treat him and allow him to follow-up in a day with Dr. Martinez. Rocephin and then begin to put him out on Augmentin which would have good MRSA coverage. We have given return precautions. Departure Impression Primary Impression: Sinusitis Qualified Codes: J01.00 - Acute maxillary sinusitis, unspecified Additional Impression: Postoperative infection Qualified Codes: T81.40XA - Infection following a procedure, unspecified, initial encounter Disposition: HOME, SELF-CARE Condition: Stable Departure-Patient Inst. Decision time for Depature: 12:36 Referrals: PRICE MARTINEZ MD [facility] (PCP/Family) Primary Care Physician Patient Instructions: Sinusitis, Adult ED Add. Discharge Instructions: curing supervisor the antibiotics and take them twice a day with food. Drink lots of fluids to keep your secretions loose. Tylenol and Motrin as necessary for pain. Hydrocodone 1 tablet every 6 hours as necessary for breakthrough pain. Expect improvement in 3 to 4 days. Ondansetron 1 tablet every 6 hours as necessary for nausea and/or vomiting. Keep your follow-up appointment with Dr. Martinez. Return to the ER if you are having confusion, fever above 100.3 or increasing/worsening symptoms. All discharge instructions reviewed with patient and/or family. Voiced under standing. Scripts Hydrocodone/Acetaminophen (Hydrocodone-Acetamin 5-325 mg) 1 Each Tablet 1 EACH PO Q6H PRN for PAIN-BREAKTHROUGH, #20 TAB 0 Refills Prov: KRZYSZTOF JEFFERSON 07/15/20 Ondansetron (Ondansetron Odt) 4 Mg Tab.rapdis 4 MG PO Q6H PRN for NAUSEA/VOMITING, #8 TAB 0 Refills Prov: KRZYSZTOF JEFFERSON 07/15/20 Sulfamethoxazole/Trimethoprim (Bactrim Ds Tablet) 1 Each Tablet 1 EACH PO BID for 10 Days, #20 TAB 0 Refills Prov: KRZYSZTOF JEFFERSON 07/15/20 Copy Copies To 1: PRICE MARTINEZ MD, TITUS J Jul 15, 2020 12:38
[2020-07-15] MEDS ORDERED: ONDA4TAB11 PO (12:39)
[2020-07-15] MEDS ORDERED: SULF1TAB35 PO (12:39)
[2020-07-15] MEDS ORDERED: ACHD5005 PO (12:42)
== END 2020-07-15 13:01 | disposition home or self-care (01) ==
LOC: EDUNIT# 12:13 → ER 12:15
DX: J32.0 Chronic maxillary sinusitis (principal); T81.40XA Infection following a procedure, unspecified, initial encounter; I10 Essential (primary) hypertension; F17.210 Nicotine dependence, cigarettes, uncomplicated; Z88.0 Allergy status to penicillin; Z88.5 Allergy status to narcotic agent
CPT/HCPCS: 99284

== ENCOUNTER 2020-07-17 08:43 | Inpatient (IN) | payer SELFPAY ==
[~2020-07-17] VITALS: Ht 185.5 cm; Wt 126.4 kg
[2020-07-17] VITALS (10 sets, daily range): BP systolic 73–137; BP diastolic 50–84
[~2020-07-17 08:43] MED LIST changes: +ONDA4TAB11 PO; +SULF1TAB35 PO
--- NOTE | 2020-07-17 09:00 | NUR ---
CANDACE VALDIVIA admitted to room 406-1, with an admitting diagnosis of NASAL ABSCESS, on 07/17/20 from DIRECT ADMIT, accompanied by SELF. CANDACE VALDIVIA introduced to surroundings, call light, bed controls, phone, TV, temperature control, lights, meal times, smoking policy, visitor policy, side rail policy, bathrooms and showers. Patient Rights given to patient in the handbook. CANDACE VALDIVIA verbalizes understanding that [facility] is not responsible for the loss or damage to any personal effects or valuables that are kept in the patients posession during their hospitalization. The following Patient Care Plans were discussed with thePT: Discharge Planning, PAIN, AND WOUND. CANDACE VALDIVIA verbalizes understanding of Interdisciplinary Patient Education. Patient and/or family were informed about the Rapid Response Team and its purpose.
[2020-07-17] MEDS ORDERED: VANCOMYCIN 2000 MG/NS 500 ML IVPB IV NR ×2 (09:45)
[2020-07-17 09:48] LABS: BASOPHILS % (AUTO) 0 % (0-10); EOSINOPHILS # (AUTO) 0.2 10^3/uL (0.0-0.3); EOSINOPHILS % (AUTO) 1 % (0-10); HEMATOCRIT 40 % (40-54); HEMOGLOBIN 12.8 g/dL (13.3-17.7); LYMPHOCYTES # (AUTO) 2.2 10^3/uL (1.0-4.0); LYMPHOCYTES % (AUTO) 16 % (12-44); MEAN CORPUSCULAR HEMOGLOBIN 32 pg (25-34); MEAN CORPUSCULAR HGB CONC 32 g/dL (32-36); MEAN CORPUSCULAR VOLUME 97 fL (80-99); MEAN PLATELET VOLUME 10.5 fL (9.0-12.2); MONOCYTES # (AUTO) 1.1 10^3/uL (0.0-1.0); MONOCYTES % (AUTO) 8 % (0-12); NEUTROPHILS # (AUTO) 10.1 10^3/uL (1.8-7.8); NEUTROPHILS % (AUTO) 74 % (42-75); PLATELET COUNT 225 10^3/uL (130-400); WHITE BLOOD COUNT 13.6 10^3/uL (4.3-11.0)
[2020-07-17 09:59] LABS: CHLORIDE 99 MMOL/L (98-107); POTASSIUM 4.5 MMOL/L (3.6-5.0); SODIUM 133 MMOL/L (135-145)
[2020-07-17 10:00] LABS: CALCIUM 9.5 MG/DL (8.5-10.1); GLUCOSE 159 MG/DL (70-105)
--- NOTE | 2020-07-17 10:00 | NUR ---
MRSA SWAB DONE, COVID SWAB DONE, CONSENT SIGNED, IV WITH #20 LEFT FA BY SHAINA RAE, ADD-ON TO OR DONE AND POPPED CORN OVEN ATTENDANT NOTIFIED.
[2020-07-17 10:02] LABS: CARBON DIOXIDE 25 MMOL/L (21-32)
[2020-07-17 10:04] LABS: CREATININE SERUM 1.02 MG/DL (0.60-1.30); GFR ESTIMATED > 60
[2020-07-17 10:05] LABS: BUN/CREATININE RATIO 13
[2020-07-17] MEDS: NS IV 1000 ML 1,000 ML IV SCH (10:27)
--- NOTE | 2020-07-17 10:30 | NUR ---
FENTANYL 25 IV FOR PAIN.
[2020-07-17] MEDS: fentaNYL INJECTION 100 MCG/2 ML AMP IV PRN ×3 (10:32→20:47)
[2020-07-17] MEDS ORDERED: MUPIROCIN 2% OINT 22 GM (BACTROBAN) TUBE ONE (10:43)
[2020-07-17] MEDS ORDERED: LIDOCAINE/EPI 1%-1:100,000 (XYLOCAINE) 50 ML ONE (10:43)
[2020-07-17] MEDS ORDERED: METF-399 PO (11:39)
[2020-07-17] MEDS ORDERED: LISI10TA2 PO (11:39)
[2020-07-17] MEDS ORDERED: morphine INJ 10 MG/ML 1ML (SYR OR VIAL) IVP ONE (11:45)
[2020-07-17] MEDS ORDERED: MEPERIDINE (DEMEROL) INJ 50 MG/ML IVP ONE (11:45)
--- NOTE | 2020-07-17 12:15 | NUR ---
TO OR PER BED.
[2020-07-17] MEDS ORDERED: fentaNYL INJECTION 100 MCG/2 ML AMP ONE (12:39)
[2020-07-17] MEDS ORDERED: proPOfol 200 MG/20 ML (DIPRIVAN) VIAL IV ONE (12:39)
[2020-07-17] MEDS ORDERED: SUCCINYLCHOLINE INJ 100 MG/5 ML SYR/VIAL ONE (12:39)
[2020-07-17] MEDS ORDERED: SEVOFLURANE (ULTANE) 15 ML INHAL SOLN ONE (12:39)
[2020-07-17] MEDS ORDERED: LIDOCAINE PF 2% 5 ML (XYLOCAINE) VIAL ONE (12:39)
[2020-07-17] MEDS ORDERED: MIDAZOLAM 2 MG/2 ML (VERSED) VIAL ONE (12:40)
[2020-07-17] MEDS ORDERED: ONDANSETRON 4 MG/2 ML (SDV) Z0FRAN ONE (12:43)
--- NOTE | 2020-07-17 12:45 | Progress Note-Pre Operative ---
Pre-Operative Progress Note H&P Reviewed The H&P was reviewed, patient examined and no changes noted. Date Seen by Provider: Jul 17, 2020 Time Seen by Provider: 12:30 Date H&P Reviewed: Jul 17, 2020 Time H&P Reviewed: 12:30 Pre-Operative Diagnosis: Nasal Abscess PRICE MASCORRO MD Jul 17, 2020 12:45
--- NOTE | 2020-07-17 12:46 | Progress Note-Post Operative ---
Post-Operative Progess Note Surgeon (s)/Devops Consultant (s) Surgeon PRICE MASCORRO MD Devops Consultant n/a Pre-Operative Diagnosis Nasal Abscess Post-Operative Diagnosis same Post-Op Procedure Note Date of Procedure: Jul 17, 2020 Name of Procedure Performed: Incision/Drainage of Large Nasal Abscess Description & Findings Description and Findings: n/a Anesthesia Type get Estimated Blood Loss minimal Packing none. Specimen(s) collected/removed aerobic and anaerobic cultures sent to lab PRICE MASCORRO MD Jul 17, 2020 12:46
--- NOTE | 2020-07-17 12:50 | NUR ---
PTD Vancomycin - Loading dose 2gm over 2 hours, then 1250mg every 8 hours. Trough will be ordered for 07/18 @ 0830.
[2020-07-17] MEDS ORDERED: LACTATED RINGERS 1,000 ML IV PRN (13:00)
--- NOTE | 2020-07-17 13:16 | Anesthesia-General Post-Op ---
General Patient Condition Mental Status/LOC: Same as Preop Cardiovascular: Satisfactory Nausea/Vomiting: Absent Respiratory: Satisfactory Pain: Controlled Complications: Absent Post Op Complications Complications None Follow Up Care/Instructions Patient Instructions None needed. Anesthesia/Patient Condition Patient Condition Patient is doing well, no complaints, stable vital signs, no apparent adverse anesthesia problems. No complications reported per nursing. ABIMAEL MENDOZA CRNA Jul 17, 2020 13:16
--- NOTE | 2020-07-17 14:00 | NUR ---
RET'D FROM OR. ALERT AND ORIENTED. SL OOZING PINK FROM RT NARE. SEE ASSESSMENT.
[2020-07-17] MEDS: ONDANSETRON 4 MG/2 ML (SDV) Z0FRAN IVP PRN (14:14)
--- NOTE | 2020-07-17 14:15 | NUR ---
PERCOCET 2 PO FOR PAIN.
[2020-07-17] MEDS: oxyCODONE/APAP 5/325MG (PERCOCET 5) TABLET PO PRN (14:18)
--- NOTE | 2020-07-17 15:00 | NUR ---
FENTANYL 25 IV FOR PAIN. PT SWEATY. C/O BEING HOT. AFEBRILE. BS 146MG/DL.
[2020-07-17] MEDS: VANCOMYCIN 1250 MG/NS 250 ML IVPB IV SCH ×2 (17:41)
[2020-07-17] MEDS: MUPIROCIN 2% OINT 22 GM (BACTROBAN) TUBE NSEACH SCH (20:04)
--- NOTE | 2020-07-17 20:26 | NUR ---
PT STATING NOSE & UPPER LIP ARE SWOLLEN 3XS THE NORMAL SIZE, PT STATING HIS THROAT IS SORE & HARD TO SWALLOW, PT REQUESTING THIS RN TO CALL DR. MASCORRO & ASK FOR A CHLORASEPTIC SPRAY TO HELP NUMB HIS THROAT. THIS RN CALLED DR. MASCORRO TO INFORM HIM OF PT CONCERN ORDER RECEIVED FOR CHLORASEPTIC SPRAY. THIS RN ALSO ASKED IF DR. MASCORRO WANTED THE FACE TENT PLACED FOR THE MOISTURE, THIS RN WAS INFORMED PT MAY HAVE PRN IF HIS THROAT FEELS DRY BUT IT IS NOT REQUIRED ONLY PRN.
[2020-07-17] MEDS ORDERED: CHLORASEPTIC SPRAY 177 ML LIQUID MC PRN (20:30)
[2020-07-18] VITALS (7 sets, daily range): BP systolic 103–147; BP diastolic 58–96
[2020-07-18] MEDS: oxyCODONE/APAP 5/325MG (PERCOCET 5) TABLET PO PRN ×2 (01:02→05:32)
[2020-07-18] MEDS: VANCOMYCIN 1250 MG/NS 250 ML IVPB IV SCH ×6 (01:13→17:58)
[2020-07-18] MEDS: NS IV 1000 ML 1,000 ML IV SCH ×2 (05:26→13:43)
--- NOTE | 2020-07-18 06:07 | Progress Note ---
Standard Progress Note Progress Notes/Assess & Plan Date Seen by a Provider: Jul 18, 2020 Time Seen by a Provider: 06:00 Progress/Assessment & Plan ENT-Juan nose still swollen patient on vancomycin which should cover MRSA well cultures pending c/o sore [id number] likely from surgery-will resolve going to take some time for nasal infection to respond needs to be in hosptial until at least sunday and then home on triple antibiotics assuming the culture does grow out MRSA rx's in chart for doxy and cleocin/ patient already has bactrim at home also wrote for pain medication for cik-fwoafyyf-ar will need to take iwth food Final Diagnosis Nasoseptal Abscess-probable MRSA PRICE MASCORRO MD Jul 18, 2020 06:07
--- NOTE | 2020-07-18 06:30 | NUR ---
DR. MASCORRO AT BEDSIDE TO SEE PT, INFORMED THIS RN THAT PT WILL LIKELY DISCHARGE 07/19/20 AFTER 10 AM VANCOMYCIN DOSE BUT HE WILL NOTIFY STAFF ON THAT DAY. THIS RN WAS ALSO INFORMED THAT PT MAY HAVE MRSA IN THE WOUND IN HIS NOSE ORDERS TO PLACE PT IN CONTACT ISOLATION A PRECAUTION
[2020-07-18] MEDS: MUPIROCIN 2% OINT 22 GM (BACTROBAN) TUBE NSEACH SCH ×2 (08:15→19:47)
[2020-07-18] MEDS ORDERED: TROUGH ORDER-PHARMACY XX NR (08:30)
[2020-07-18] MEDS: ONDANSETRON 4 MG/2 ML (SDV) Z0FRAN IVP PRN (10:45)
--- NOTE | 2020-07-18 10:48 | NUR ---
ZOFRAN IV FOR NAUSEA.
--- NOTE | 2020-07-18 12:45 | NUR ---
T 38.6. DR. MASCORRO NOTIFIED.
[2020-07-18] MEDS: IBUPROFEN TABLET 200 MG TAB PO PRN (13:43)
--- NOTE | 2020-07-18 13:46 | NUR ---
IBUPROFEN 400 MG PO FOR ELEVATED TEMP AND HEADACHE.
[2020-07-19] MEDS: VANCOMYCIN 1250 MG/NS 250 ML IVPB IV SCH ×4 (01:42→09:20)
[2020-07-19] MEDS: oxyCODONE/APAP 5/325MG (PERCOCET 5) TABLET PO PRN (04:31)
[2020-07-19 04:32] VITALS: BP 129/75
--- NOTE | 2020-07-19 05:49 | Progress Note ---
Standard Progress Note Progress Notes/Assess & Plan Date Seen by a Provider: Jul 19, 2020 Time Seen by a Provider: 06:00 Progress/Assessment & Plan ENTJulio nose still swollen patient on vancomycin which should cover MRSA well cultures pending c/o sore [id number] likely from surgery-will resolve going to take some time for nasal infection to respond needs to be in hosptial until at least sunday and then home on triple antibiotics assuming the culture does grow out MRSA rx's in chart for doxy and cleocin/ patient already has bactrim at home also wrote for pain medication for nly-mcqijxng-nc will need to take [employer] food GHF-Icauq-77/21 slow improvement collins diet nose-less swollen and much less tender MRSA laurie ldicharger after mid mornign dose of antibiotics home on triple antibiotics-doxy/cleocin and he already has bactrim at home home with bactorban ointment as well rtc-2 weeks percocet written for home-number 40 as well PRICE MASCORRO MD Jul 19, 2020 05:49
[2020-07-19 08:00] VITALS: BP 164/92
[2020-07-19] MEDS: MUPIROCIN 2% OINT 22 GM (BACTROBAN) TUBE NSEACH SCH (08:45)
[2020-07-19] MEDS: IBUPROFEN TABLET 200 MG TAB PO PRN (08:49)
[2020-07-19] MEDS ORDERED: MUPIROCIN 2% OINT 22 GM (BACTROBAN) TUBE NSEACH SCH (09:00)
[2020-07-19] MEDS ORDERED: RELABEL FOR HOME USE MC SCH (09:00)
[2020-07-19] MEDS ORDERED: MUPI15CR11 TP (09:32)
[2020-07-19] MEDS ORDERED: CLIN300C3 PO (09:36)
[2020-07-19] MEDS ORDERED: OXYC-199 PO (09:36)
[2020-07-19] MEDS ORDERED: DOXY100T2 PO (09:36)
== END 2020-07-19 10:50 | disposition home or self-care (01) | DRG 156 ==
LOC: 4TH 08:43
PROVIDERS: ADMIT Otolaryngology Otolaryngology/Facial Plastic Surgery; ATTEND Otolaryngology Otolaryngology/Facial Plastic Surgery
PROC: 099M7ZZ Drainage of Nasal Septum, Via Natural or Artificial Opening (ICD-10-PCS; 2020-07-17)
PROC: 099K0ZZ Drainage of Nasal Mucosa and Soft Tissue, Open Approach (ICD-10-PCS; principal; 2020-07-17 12:52)
DX: J34.0 Abscess, furuncle and carbuncle of nose (principal); A49.02 Methicillin resistant Staphylococcus aureus infection, unspecified site; Z20.828 Contact with and (suspected) exposure to other viral communicable diseases; Z88.6 Allergy status to analgesic agent; Z88.1 Allergy status to other antibiotic agents; Z88.0 Allergy status to penicillin
CPT/HCPCS: 36415; 80048; 80202; 82962; 85025; 87070; 87075; 87077; 87081; 87186; 87205; 87635

== ENCOUNTER 2021-06-29 05:20 | Emergency (ER) | payer SELFPAY ==
[~2021-06-29] VITALS: Ht 185.5 cm; Wt 113.4 kg
[~2021-06-29 05:20] MED LIST changes: +CLIN300C3 PO; +DOXY100T2 PO; +LISI10TA25 PO; -LISI1TAB29 PO; +LISI1TAB44 PO; +METF-399 PO; +MUPI15CR11 TP; +OXYC-199 PO; -SULF1TAB35 PO
[2021-06-29] MEDS ORDERED: fentaNYL INJ 100 MCG/2 ML AMP IVP ONE (05:45)
[2021-06-29 06:01] LABS: BASOPHILS % (AUTO) 0 % (0-10); EOSINOPHILS # (AUTO) 0.2 10^3/uL (0.0-0.3); EOSINOPHILS % (AUTO) 2 % (0-10); HEMATOCRIT 45 % (40-54); HEMOGLOBIN 15.1 g/dL (13.3-17.7); LYMPHOCYTES # (AUTO) 2.6 10^3/uL (1.0-4.0); LYMPHOCYTES % (AUTO) 25 % (12-44); MEAN CORPUSCULAR HEMOGLOBIN 32 pg (25-34); MEAN CORPUSCULAR HGB CONC 34 g/dL (32-36); MEAN CORPUSCULAR VOLUME 94 fL (80-99); MEAN PLATELET VOLUME 10.3 fL (9.0-12.2); MONOCYTES # (AUTO) 0.7 10^3/uL (0.0-1.0); MONOCYTES % (AUTO) 7 % (0-12); NEUTROPHILS # (AUTO) 6.7 10^3/uL (1.8-7.8); NEUTROPHILS % (AUTO) 65 % (42-75); PLATELET COUNT 250 10^3/uL (130-400); WHITE BLOOD COUNT 10.2 10^3/uL (4.3-11.0)
[2021-06-29 06:11] LABS: POTASSIUM 4.1 MMOL/L (3.6-5.0)
[2021-06-29 06:12] LABS: CALCIUM 9.6 MG/DL (8.5-10.1)
[2021-06-29] MEDS ORDERED: TETANUS,DIPTH,PERTUSS P/F (BOOSTRIX) 0.5 ML VIAL IM ONE (06:15)
[2021-06-29] MEDS ORDERED: CLINDAMYCIN 900 MG/50 ML IVPB 50 ML IV ONE (06:15)
[2021-06-29 06:17] LABS: CREATININE SERUM 1.06 MG/DL (0.60-1.30)
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
[2021-06-29] MEDS ORDERED: TRIM/SULFAMETH 160/800 (SEPTRA DS) TAB PO ONE (06:30)
[2021-06-29] MEDS ORDERED: SULF1TAB38 PO (06:34)
[2021-06-29] MEDS ORDERED: CEPH500T PO (06:34)
[2021-06-29] MEDS ORDERED: KETOROLAC 30 MG/ML VIAL IVP ONE (06:45)
[2021-06-29 06:55] VITALS: BP 111/69
== END 2021-06-29 06:56 | disposition home or self-care (01) ==
LOC: EDUNIT# 05:20 → ER 05:24
DX: S67.192A Crushing injury of right middle finger, initial encounter (principal); L02.511 Cutaneous abscess of right hand; L03.011 Cellulitis of right finger; G47.30 Sleep apnea, unspecified; I10 Essential (primary) hypertension; E11.9 Type 2 diabetes mellitus without complications; Z72.0 Tobacco use; Z86.14 Personal history of Methicillin resistant Staphylococcus aureus infection; Z79.84 Long term (current) use of oral hypoglycemic drugs; W22.8XXA Striking against or struck by other objects, initial encounter
CPT/HCPCS: 36415; 73130; 80048; 85025; 86141; 87070; 87077; 87186; 87205; 90715

== ENCOUNTER 2022-11-05 08:58 | Emergency (ER) | payer SELFPAY ==
[~2022-11-05] VITALS: Ht 185 cm; Wt 113.0 kg
[~2022-11-05 08:58] MED LIST changes: +CEPH500T PO
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
--- NOTE | 2022-11-05 09:52 | Diagnostic Imaging Report ---
Indication: Pain. No priors. Findings: There is no joint effusion. There is old ununited avulsion off the anterior tibial apophysis. There are calcified loose bodies in the midline joint posteriorly measuring 7 mm. No acute fracture or joint effusion. impression: No acute-appearing abnormality, calcified loose bodies and old ununited anterior tibial apophysis. No acute bony abnormality evident. Dictated by: Dictated on workstation # [id number]
[2022-11-05] MEDS ORDERED: TRM50T PO (10:13)
[2022-11-05] MEDS ORDERED: MELO15TA39 PO (10:13)
[2022-11-05] MEDS ORDERED: CEFU500T63 PO (10:13)
[2022-11-05] MEDS ORDERED: MUPI22OI2 TP (10:13)
[2022-11-05 10:35] VITALS: BP 111/85
== END 2022-11-05 10:35 | disposition home or self-care (01) ==
LOC: EDUNIT# 08:58 → ER 09:00
DX: S02.609A Fracture of mandible, unspecified, initial encounter for closed fracture (principal); S80.02XA Contusion of left knee, initial encounter; S80.812A Abrasion, left lower leg, initial encounter; G47.30 Sleep apnea, unspecified; F17.210 Nicotine dependence, cigarettes, uncomplicated; Z99.89 Dependence on other enabling machines and devices; Z88.1 Allergy status to other antibiotic agents; Z28.310 Unvaccinated for COVID-19; Y00.XXXA Assault by blunt object, initial encounter
CPT/HCPCS: 70450; 70486; 72125; 73562

== ENCOUNTER 2023-01-06 19:36 | Emergency (ER) | payer OTHER ==
[~2023-01-06] VITALS: Ht 182 cm; Wt 113.0 kg
[~2023-01-06 19:36] MED LIST changes: +CEFU500T63 PO; +MELO15TA39 PO; +MUPI22OI2 TP; +TRM50T PO
--- NOTE | 2023-01-06 20:16 | ED Upper Extremity ---
General Chief Complaint: Upper Extremity Stated Complaint: LEFT SHOULDER PAIN Nursing Triage Note: patient states woke up with shoulder left pain. patient states can bend his arm at his elbow, but can not rase it above her arm. Source: patient History of Present Illness Date Seen by Provider: Jan 06, 2023 Time Seen by Provider: 20:05 Initial Comments PT ARRIVES VIA POV FROM HOME C/O LEFT SHOULDER PAIN PT STATES HE HAS HAD THIS PAIN OFF AND ON "FOR A LONG TIME", AND "WOKE UP A COUPLE OF WEEKS AGO" WITH THE PAIN AND IT HAS BEEN CONSTANT SINCE THEN HE HAS PAIN WITH ANY MOVEMENT OF THE SHOULDER. NO PARESTHESIAS OR MOTOR DEFICITS NO CHEST PAIN NO NECK OR BACK PAIN NO SHORTNESS OF BREATH NO HEADACHE NO VISION CHANGES NO INJURY OR UNUSUAL ACTIVITY PT DOES NOT WORK PT IS RIGHT HANDED HE HAS NOT TAKEN ANYTHING FOR PAIN AT ANY TIME HE HAS NOT SOUGHT CARE FOR THIS PROBLEM AT ANY TIME, SYMPTOMS ARE NO DIFFERENT TONIGHT ( SUNDAY NIGHT) STATES HE HAS BEEN PLAYING WITH HIS GRANDKIDS ALL DAY PT IS PROFUSELY DIAPHORETIC ON ARRIVAL STATES HE ATE JUST PRIOR TO ARRIVAL--[employer] PT IS DIABETIC, PRESCRIBED METFORMIN. HE DOES NOT TAKE HIS MEDICATIONS, HE DOES NOT CHECK HIS BLOOD SUGAR AND DOES NOT FOLLOW A DIET HE HAS HTN, PRESCRIBED LISINOPRIL, BUT HAS NOT BEEN TAKING IT. HE ALSO HAS HYPERLIPIDEMIA BUT DOES NOT TAKE THE PRESCRIBED MEDICATION FOR IT EITHER. 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 HE DOES NOT SEE A SHIELD OPERATOR. PT SMOKES 1 PPD, HE STATES HE "USED TO BE A BAD ALCOHOLIC" "BUT I DON'T GET DRUNK ANYMORE" DOES CONTINUE TO DRINK BEER DAILY. HE ALSO STATES HE "USED TO USE EVERYTHING" BUT DENIES IV DRUG USE--ADMITS TO THC, METH, COCAINE USE, "EVERYTHING YOU CAN THINK OF" --CLAIMS NO RECENT USE [facility] Allergies and Home Medications Allergies Coded Allergies: Penicillins (Verified Allergy, Mild, seizures, 07/17/20) amoxicillin (Verified Allergy, Mild, 07/17/20) clavulanic acid (Verified Allergy, Mild, 07/17/20) shellfish derived (Verified Allergy, Unknown, 07/17/20) codeine (Verified Adverse Reaction, Unknown, unknown, 07/17/20) also had taken PCN but developed rash Patient Home Medication List Cefuroxime Axetil (Cefuroxime) 500 Mg Tablet, 500 MG PO BID Prescribed by: ROSALINA ZURITA on 11/05/22 1013 Cephalexin (Cephalexin) 500 Mg Tablet, 500 MG PO QID Prescribed by: ESTRADA JOY on 06/29/21 0634 Clindamycin HCl (Cleocin HCl) 300 Mg Capsule, 300 MG PO TID Prescribed by: BERNARDO NÚÑEZ on 07/19/20 09 Cyclobenzaprine HCl (Cyclobenzaprine HCl) 10 Mg Tablet, 10 MG PO Q8H PRN for SPASMS Prescribed by: ROSALINA ZURITA on 01/06/232056 Doxycycline Hyclate (Doxycycline Hyclate) 100 Mg Tablet, 100 MG PO BID Prescribed by: BERNARDO NÚÑEZ on 07/19/20 09 Lisinopril (Lisinopril) 10 Mg Tablet, 10 MG PO DAILY, (Reported) Entered as Reported by: ROMAINE LYLE on 07/17/20 1139 Meloxicam (Meloxicam) 15 Mg Tablet, 15 MG PO DAILY Prescribed by: ROSALINA ZURITA on 11/05/22 101 Metformin HCl (Metformin HCl) 1,000 Mg Tablet, 1,000 MG PO BID, (Reported) Entered as Reported by: ROMAINE LYLE on 07/17/20 1139 Mupirocin (Mupirocin) 2 % Oint...g., 22 GM TP BID Prescribed by: ROSALINA ZURITA on 11/05/22 1013 Mupirocin Calcium (Mupirocin) 15 Gm Cream..g., 1 APPLIC TP BID Prescribed by: BERNARDO NÚÑEZ on 07/19/20 0932 Naproxen (Naproxen) 500 Mg Tablet.dr, 500 MG PO BID Prescribed by: ROSALINA ZURITA on 01/06/232056 Oxycodone HCl/Acetaminophen (Percocet 5-325 mg Tablet) 1 Each Tablet, 1-2 TAB PO Q4H PRN for PAIN-MODERATE Prescribed by: BERNARDO NÚÑEZ on 07/19/20 0936 Sulfamethoxazole/Trimethoprim (Bactrim Ds Tablet) 1 Each Tablet, 1 EACH PO BID Prescribed by: KRZYSZTOF JEFFERSON on 07/15/20 1239 Sulfamethoxazole/Trimethoprim (Bactrim Ds Tablet) 1 Each Tablet, 1 EACH PO TID Prescribed by: ESTRADA JOY on 06/29/21 0634 Tramadol HCl (Tramadol HCl) 50 Mg Tablet, 50 MG PO Q6H PRN for PAIN Prescribed by: ROSALINA ZURITA on 11/05/22 1013 Review of Systems Constitutional: diaphoresis EENTM: no symptoms reported Respiratory: no symptoms reported Cardiovascular: no symptoms reported Gastrointestinal: no symptoms reported Genitourinary: no symptoms reported Musculoskeletal: see HPI Skin: no symptoms reported Psychiatric/Neurological: No Symptoms Reported Past Bmwrred-Jnymiy-Csprih Hx Patient Social History Tobacco Use?: Yes Tobacco type used: Cigarettes Smoking Status: Current Everyday Smoker Substance use?: Yes Substance type: Methamphetamine, Marijuana, Other Additional substance use comme: COCAINE Alcohol Use?: Yes Alcohol type: Beer Alcohol Frequency: Daily Immunizations Up To Date First/Initial COVID19 Vaccinat: No Vaccine Second COVID19 Vaccination Praful: No Vaccine Third COVID19 Vaccination Date: No Vaccine Seasonal Allergies Seasonal Allergies: Yes Past Medical History Surgery/Hospitalization HX: HTN AND DM2 SURG.-NOSE, GALLBLADDER REMOVAL Surgeries: Yes (NOSE SURGERY, RECTAL ABCESS) Gallbladder Respiratory: Yes Sleep Apnea Currently Using CPAP: Yes Currently Using BIPAP: No Cardiac: Yes High Cholesterol, Hypertension Neurological: No Reproductive Disorders: No Genitourinary: No Gastrointestinal: Yes Chronic Constipation Musculoskeletal: Yes Degenerate Disk Disease, Arthritis Endocrine: Yes Diabetes, Non-Insulin dep HEENT: Yes (EPISTAXIS, NASAL ABSCESS; R MANDIBULAR FX 10/2022) Cancer: No Psychosocial: No Integumentary: Yes (ABSCESSES) Blood Disorders: No Adverse Reaction/Blood Tranf: No (NA) Family Medical History No Pertinent Family Hx SOCIAL HISTORY: PER PT ON 01/06/23 -SMOKES 1 PPD -ETOH--DRINKS BEER DAILY, STATES "I USED TO BE A BAD ALCOHOLIC BUT I DON'T GET DRUNK ANY MORE" --STILL DRINKS BEER DAILY -DRUGS--DENIES IV DRUG USE, BUT STATES HE HAS USED "EVERY THING YOU CAN THINK OF" INCLUDING METH, COCAINE, THC, "EVERYTHING" PAST SURGICAL HISTORY: -CHOLECYSTECTOMY -SURGERY FOR NASAL ABSCESS -SURGERY FOR POSTERIOR EPISTAXIS -SURGERY FOR RECTAL ABSCESS PT HAD RIGHT MANDIBULAR FX DX 04/09/23--NEVER FOLLOWED UP WITH ANYONE PT HAS LONG HISTORY OF EXTREME NON-COMPLIANCE IN ALL ASPECTS OF CARE Physical Exam Vital Signs Vital Signs - First Documented 01/06/23 19:53 Temp 37.1 Pulse 103 Resp 20 B/P (MAP) 200/113 (142) Pulse Ox 93 O2 Delivery Room Air Capillary Refill : Less Than 3 Seconds Height, Weight, BMI Height: 6'1.00" Weight: 240lbs. oz. [id number]; 34.00 BMI Method:Stated General Appearance: WD/WN, no apparent distress, other (PROFUSELY DIAPHORETIC, ANXIOUS) HEENT: other (POOR DENTITION. MULTIPLE MISSING TEETH AND REMAINING TEETH WITH EXTENSIVE DECAY) Neck: non-tender, full range of motion, supple, normal inspection Cardiovascular: normal peripheral pulses, regular rate, rhythm, no murmur Respiratory: chest non-tender, normal breath sounds, no respiratory distress, no accessory muscle use Back: normal inspection, no CVA tenderness, no vertebral tenderness Shoulder: bone tenderness (DIFFUSE TENDERNESS TO LEFT SHOULDER, WITH MINIMAL ROM IN ALL DIRECTIONS. HAS FULL FROM AT ELBOW JOINT AND DISTALLY. SENSORY /VASCULAR INTACT. NO EXTERNAL EVIDENCE OF TRAUMA, NO DEFORMITY. NO SWELLING. 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-XII nml as tested, no motor/sensory deficits, alert, normal mood/affect, oriented x 3 Skin: normal color, tattoos/piercings (EXTENSIVE TATTOOS), other (WARM, AND PROFUSELY DIAPHORETIC) Progress/Results/Core Measures Results/Orders My Orders Orders - ROSALINA ZURITA DO Shoulder, Left, 3 Views (01/06/23 20:15) Ekg Tracing (01/06/23 20:16) Monitor-Rhythm Ecg Trace Only (01/06/23 20:16) Rx-Cyclobenzaprine Tablet (Rx-Flexeril T (01/06/23 20:57) Rx-Naproxen (Rx-Naprosyn) (01/06/23 20:57) Vital Signs/I&O 01/06/23 19:53 Temp 37.1 Pulse 103 Resp 20 B/P (MAP) 200/113 (142) Pulse Ox 93 O2 Delivery Room Air Blood Pressure Mean: 142 Progress Progress Note : Progress Note PT STATES HE HAS A SLING AT HOME, BUT HAS NOT BEEN USING IT Initial ECG Impression Date: Jan 06, 2023 Initial ECG Impression Time: 20:22 Initial ECG Rate: 93 Initial ECG Rhythm: Normal Sinus Initial ECG Intervals: Normal Initial ECG Impression: Nonspecific Changes (FLATTENED T WAVES) Initial ECG Comparisson: Unchanged Comment INTERPRETED BY ME Diagnostic Imaging Comments XRAYS LEFT SHOULDER--PER RADIOLOGIST REPORT AT 2048 FINDINGS: There is no acute fracture or dislocation. There are mild to moderately hypertrophic spurs involving the left acromioclavicular joint region. The remainder of the left bony shoulder structures are unremarkable. IMPRESSION: There is degenerative disease in the left shoulder with no acute fracture or dislocation. Reviewed: Reviewed by Me Departure Impression Primary Impression: Chronic pain in left shoulder Additional Impressions: HTN (hypertension) Non-compliance Disposition: 01 HOME, SELF-CARE Condition: Stable Departure-Patient Inst. Decision time for Depature: 20:49 Referrals: [facility] [place] (PCP) Primary Care Physician BING WEIR MD, MICHAEL P MD Patient Instructions: Shoulder Pain ED, High Blood Pressure ED Add. Discharge Instructions: WEAR SLING AT ALL TIMES ALTERNATE ICE AND HEAT TO THE AREA AT 20 MINUTE INTERVALS FOLLOW UP WITH DR. GOLDMAN OR DR. WEIR OR ORTHOPEDIC SURGEON OF CHOICE NEXT WEEK FOR FURTHER CARE--CALL IN THE MORNING TO SCHEDULE AN APPOINTMENT All discharge instructions reviewed with patient and/or family. Voiced understanding. Scripts Naproxen (Naproxen) 500 Mg Tablet. 500 MG PO BID, #20 TAB Prov: ROSALINA ZURITA DO 01/06/23 Cyclobenzaprine HCl (Cyclobenzaprine HCl) 10 Mg Tablet 10 MG PO Q8H PRN for SPASMS, #15 TAB 0 Refills Prov: ROSALINA ZURITA DO 01/06/23 ROSALINA ZURITA DO Jan 06, 2023 20:16
--- NOTE | 2023-01-06 20:46 | Diagnostic Imaging Report ---
CLINICAL INDICATIONS: Patient with shoulder pain x2 weeks. No recent trauma. EXAM: X-ray of the left shoulder, 3 views. COMPARISON: None. FINDINGS: There is no acute fracture or dislocation. There are mild to moderately hypertrophic spurs involving the left acromioclavicular joint region. The remainder of the left bony shoulder structures are unremarkable. IMPRESSION: There is degenerative disease in the left shoulder with no acute fracture or dislocation. Dictated by: Dictated on workstation # [id number]
[2023-01-06] MEDS ORDERED: RX-NAPROXEN (NAPROSYN) 250 MG TAB PPK#4 PO STA (20:57)
[2023-01-06] MEDS ORDERED: NAPR500T8 PO (20:57)
[2023-01-06] MEDS ORDERED: CYCL10TA25 PO (20:57)
[2023-01-06] MEDS ORDERED: RX-CYCLOBENZAPRINE 10 MG (FLEXERIL) TAB PPK#3 PO STA (20:57)
[2023-01-06 21:00] VITALS: BP 160/96
== END 2023-01-06 21:04 | disposition home or self-care (01) ==
LOC: EDUNIT# 19:36 → ER 19:39
DX: M25.512 Pain in left shoulder (principal); G89.29 Other chronic pain; I10 Essential (primary) hypertension; K02.9 Dental caries, unspecified; G47.30 Sleep apnea, unspecified; F17.210 Nicotine dependence, cigarettes, uncomplicated; Z91.199 Patient's noncompliance with other medical treatment and regimen due to unspecified reason; Z28.310 Unvaccinated for COVID-19; Z99.89 Dependence on other enabling machines and devices
CPT/HCPCS: 73030; 93005

== ENCOUNTER → 2023-02-16 | Outpatient (CLI) | payer OTHER ==
[~2023-02-16] MED LIST changes: +CYCL10TA25 PO; +GABA300C PO; +KETO10TA PO; +NAPR500T8 PO; +OXYC1TAB87 PO
== END ==
LOC: RAD 07:39
PROVIDERS: ATTEND Student in an Organized Health Care Education/Training Program
DX: M75.102 Unspecified rotator cuff tear or rupture of left shoulder, not specified as traumatic (principal); Z53.9 Procedure and treatment not carried out, unspecified reason

== ENCOUNTER → 2023-03-02 | Outpatient (CLI) | payer OTHER ==
[~2023-03-02] MED LIST changes: +CEFD300C3 PO; +HYDR-3817 PO; +OXYC1TAB11 PO; +PRD20T PO; +TIZA4CAP PO; +TRAM50TA3 PO
== END ==
LOC: RAD 12:26
PROVIDERS: ATTEND Student in an Organized Health Care Education/Training Program
DX: Z53.9 Procedure and treatment not carried out, unspecified reason (principal)

== ENCOUNTER 2023-03-05 15:57 | Emergency (ER) | payer OTHER ==
[~2023-03-05] VITALS: Ht 185 cm; Wt 117.0 kg
[~2023-03-05 15:57] MED LIST changes: -CEFD300C3 PO; -HYDR-3817 PO; -OXYC1TAB11 PO; -PRD20T PO; -TIZA4CAP PO; -TRAM50TA3 PO
[2023-03-05] MEDS ORDERED: fentaNYL INJECTION 100 MCG/2 ML VIAL IVP STA ×2 (16:13→17:31)
[2023-03-05] MEDS ORDERED: methylPREDNISolone 40 MG/ML (Solu-MEDROL) VIAL IV ONE (16:15)
[2023-03-05] MEDS ORDERED: KETOROLAC INJ 30 MG/ML VIAL IVP ONE (16:15)
[2023-03-05] MEDS ORDERED: ORPHENADRINE 60 MG/2 ML (NORFLEX) AMP (ED ONLY) IM ONE (16:15)
--- NOTE | 2023-03-05 16:18 | ED Neck-Back Pain/Injury ---
General Chief Complaint: Head/Cervical Problems Stated Complaint: PAIN/BURNING SENSATION NECK/BACK/RIGHT ARM Nursing Triage Note: Patient ambulatory to room 03 c/o neck pain that radiates down the whole right side. hx of rediculopathy and spinal stenosis. Been going on for 3-4 days. patient denies any recent falls. Source of Information: Patient Exam Limitations: No Limitations (SAUNDRA KRAFT) History of Present Illness Date Seen by Provider: Mar 05, 2023 Time Seen by Provider: 16:16 Initial Comments Patient is a 52-year-old male who presents to the ED with neck pain that radiates down into his right arm. Pain states he has a history of cervical spinal stenosis. He has been having increasing pain over the past 2 months. Does have some pain in the right leg but states this has been ongoing for several weeks. Worsening pain in his right arm over the past 2 days sharp shooting pain described as numbness and tingling with any type of movement. Difficulty sleeping secondary to pain. Currently on meloxicam and Flexeril without much improvement. Patient has seen his primary care physician had a scheduled MRI but was not able to perform the MRI secondary to not being able to stay still. Reports limited range of motion the right arm. Patient is concerned that his right shoulder may be dislocated. Patient rn care transition strength is intact. Denies of any chest pain, shortness of breath, headache, dizziness, nausea, vomiting, diarrhea. (SAUNDRA KRAFT) Allergies and Home Medications Allergies Coded Allergies: morphine (Verified Allergy, Severe, TROUBLE BREATHING, 02/18/23) Penicillins (Verified Allergy, Mild, seizures, 07/17/20) amoxicillin (Verified Allergy, Mild, 07/17/20) clavulanic acid (Verified Allergy, Mild, 07/17/20) shellfish derived (Verified Allergy, Unknown, 07/17/20) codeine (Verified Adverse Reaction, Unknown, unknown, 07/17/20) also had taken PCN but developed rash Patient Home Medication List Home Medication List Reviewed: Yes (SAUNDRA KRAFT) Cefuroxime Axetil (Cefuroxime) 500 Mg Tablet, 500 MG PO BID Prescribed by: ROSALINA ZURITA on 11/05/22 1013 Cephalexin (Cephalexin) 500 Mg Tablet, 500 MG PO QID Prescribed by: ESTRADA JOY on 06/29/21 0634 Clindamycin HCl (Cleocin HCl) 300 Mg Capsule, 300 MG PO TID Prescribed by: BERNARDO NÚÑEZ on 07/19/20935 Cyclobenzaprine HCl (Cyclobenzaprine HCl) 10 Mg Tablet, 10 MG PO Q8H PRN for SPASMS Prescribed by: ROSALINA ZURITA on 01/06/232056 Cyclobenzaprine HCl (Cyclobenzaprine HCl) 10 Mg Tablet, 10 MG PO Q6H Prescribed by: TIA COOMBS MD on 02/15/234 Doxycycline Hyclate (Doxycycline Hyclate) 100 Mg Tablet, 100 MG PO BID Prescribed by: BERNARDO NÚÑEZ on 07/19/20935 Gabapentin (Neurontin) 300 Mg Capsule, 300 MG PO Q8H PRN for PAIN BREAKTROUGH Prescribed by: ESTRADA JOY on 02/18/23 174 Ketorolac Tromethamine (Ketorolac Tromethamine) 10 Mg Tablet, 10 MG PO TID Prescribed by: TIA COOMBS MD on 02/15/23 0005 Lisinopril (Lisinopril) 10 Mg Tablet, 10 MG PO DAILY, (Reported) Entered as Reported by: ROMAINE LYLE on 07/17/20 113 Meloxicam (Meloxicam) 15 Mg Tablet, 15 MG PO DAILY Prescribed by: ROSALINA ZURITA on 11/05/22 101 Metformin HCl (Metformin HCl) 1,000 Mg Tablet, 1,000 MG PO BID, (Reported) Entered as Reported by: ROMAINE LYLE on 07/17/20 1139 Mupirocin (Mupirocin) 2 % Oint...g., 22 GM TP BID Prescribed by: ROSALINA ZURITA on 11/05/22 101 Mupirocin Calcium (Mupirocin) 15 Gm Cream..g., 1 APPLIC TP BID Prescribed by: BERNARDO NÚÑEZ on 07/19/20 09 Naproxen (Naproxen) 500 Mg Tablet.dr, 500 MG PO BID Prescribed by: ROSALINA ZURITA on 01/06/232056 Oxycodone HCl/Acetaminophen (Percocet 5-325 mg Tablet) 1 Each Tablet, 1-2 TAB PO Q4H PRN for PAIN-MODERATE Prescribed by: BERNARDO NÚÑEZ on 07/19/20 0936 Oxycodone HCl/Acetaminophen (Percocet 5-325 mg Tablet) 1 Each Tablet, 1 TAB PO Q4H PRN for PAIN BREAKTROUGH Prescribed by: ESTRADA JOY on 02/18/23 1744 Oxycodone HCl/Acetaminophen (Oxycodone-Acetaminophen 5-325) 5 Mg-325 Mg Tablet, 1 EACH PO Q4H PRN for PAIN-SEVERE Prescribed by: ESMER BAIN on 03/05/23 1755 Sulfamethoxazole/Trimethoprim (Bactrim Ds Tablet) 1 Each Tablet, 1 EACH PO BID Prescribed by: KRZYSZTOF JEFFERSON on 07/15/20 1239 Sulfamethoxazole/Trimethoprim (Bactrim Ds Tablet) 1 Each Tablet, 1 EACH PO TID Prescribed by: ESTRADA JOY on 06/29/21 0634 Tramadol HCl (Tramadol HCl) 50 Mg Tablet, 50 MG PO Q6H PRN for PAIN Prescribed by: ROSALINA ZURITA on 11/05/22 1013 Review of Systems Constitutional: No chills, No diaphoresis, No malaise, No weakness EENTM: No ear pain, No blurred vision Respiratory: No cough, No dyspnea on exertion Cardiovascular: No edema Gastrointestinal: No abdominal pain, No diarrhea, No nausea, No vomiting Genitourinary: No decreased output, No discharge Musculoskeletal: No back pain, No joint pain, No joint swelling, No muscle pain; neck pain Skin: No change in color, No change in hair/nails (SAUNDRA KRAFT) All Other Systems Reviewed Negative Unless Noted: Yes (SAUNDRA KRAFT) Past Jurqcla-Ildavp-Bjuzdo Hx Immunizations Up To Date First/Initial COVID19 Vaccinat: No Vaccine Second COVID19 Vaccination Praful: No Vaccine Third COVID19 Vaccination Date: No Vaccine (SAUNDRA KRAFT) Seasonal Allergies Seasonal Allergies: Yes (SAUNDRA KRAFT) Past Medical History Surgery/Hospitalization HX: HTN AND DM2 SURG.-NOSE, GALLBLADDER REMOVAL Surgeries: Yes (NOSE SURGERY, RECTAL ABCESS) Gallbladder Respiratory: Yes Sleep Apnea Currently Using CPAP: Yes Currently Using BIPAP: No Cardiac: Yes High Cholesterol, Hypertension Neurological: No Reproductive Disorders: No Genitourinary: No Gastrointestinal: Yes Chronic Constipation Musculoskeletal: Yes (Cervical spinal stenosis with radiculopathy) Degenerate Disk Disease, Arthritis Endocrine: Yes Diabetes, Non-Insulin dep HEENT: Yes (EPISTAXIS, NASAL ABSCESS; R MANDIBULAR FX 10/2022) Cancer: No Psychosocial: No Integumentary: Yes (ABSCESSES) Blood Disorders: No Adverse Reaction/Blood Tranf: No (NA) (SAUNDRA KRAFT) Family Medical History No Pertinent Family Hx SOCIAL HISTORY: PER PT ON 01/06/23 -SMOKES 1 PPD -ETOH--DRINKS BEER DAILY, STATES "I USED TO BE A BAD ALCOHOLIC BUT I DON'T GET DRUNK ANY MORE" --STILL DRINKS BEER DAILY -DRUGS--DENIES IV DRUG USE, BUT STATES HE HAS USED "EVERY THING YOU CAN THINK OF" INCLUDING METH, COCAINE, THC, "EVERYTHING" PAST SURGICAL HISTORY: -CHOLECYSTECTOMY -SURGERY FOR NASAL ABSCESS -SURGERY FOR POSTERIOR EPISTAXIS -SURGERY FOR RECTAL ABSCESS PT HAD RIGHT MANDIBULAR FX DX 11/05/22--NEVER FOLLOWED UP WITH ANYONE PT HAS LONG HISTORY OF EXTREME NON-COMPLIANCE IN ALL ASPECTS OF CARE (SAUNDRA KRAFT) Physical Exam Vital Signs Vital Signs - First Documented 03/05/23 16:03 Temp 36.5 Pulse 91 Resp 20 B/P (MAP) 152/111 (125) Pulse Ox 97 O2 Delivery Room Air (ESTRADA PUGA MD) Vital Signs Capillary Refill : Less Than 3 Seconds (SAUNDRA KRAFT) Height, Weight, BMI Height: 6'1.00" Weight: 240lbs. oz. 108.831569zz; 34.00 BMI Method:Stated General Appearance: No Apparent Distress, WD/WN HEENT: PERRL/EOMI, TMs Normal, Normal ENT Inspection, Pharynx Normal Neck: Full Range of Motion, Normal Inspection, Non Tender, Supple Cardiovascular: Regular Rate, Rhythm, No Edema, No Gallop, No JVD, No Murmur Respiratory: Chest Non Tender, Lungs Clear, Normal Breath Sounds, No Accessory Muscle Use, No Respiratory Distress Gastrointestinal: Normal Bowel Sounds, No Organomegaly, No Pulsatile Mass, Non Tender Back: Normal Inspection, No CVA Tenderness, No Vertebral Tenderness Extremity: Other (Limited active range of motion of the right arm. Devulcanizer Head strength out of 5. Neurovascular intact. Flexion extension of the right elbow intact.) Neurologic/Psychiatric: Alert, Oriented x3, No Motor/Sensory Deficits, Normal Mood/Affect, plate straightener II-XII Norm as Tested Skin: Normal Color, Warm/Dry (SAUNDRA KRAFT) Progress/Results/Core Measures Results/Orders Medications Given in ED Current Medications Medications Dose Ordered Sig/Jed Route Start Time Stop Time Status Last Admin Dose Admin Ketorolac Tromethamine 30 mg ONCE ONCE IVP 03/05/23 16:15 03/05/23 16:16 DC 03/05/23 16:30 30 MG Methylprednisolone Sodium Succinate 120 mg ONCE ONCE IV 03/05/23 16:15 03/05/23 16:16 DC 03/05/23 16:30 120 MG Orphenadrine Citrate 60 mg ONCE ONCE IM 03/05/23 16:15 03/05/23 16:16 DC 03/05/23 16:30 60 MG (ESTRADA PUGA MD) Vital Signs/I&O 03/05/23 03/05/23 16:03 18:00 Temp 36.5 Pulse 91 Resp 20 B/P (MAP) 152/111 (125) 121/89 Pulse Ox 97 O2 Delivery Room Air (ESTRADA PUGA MD) Blood Pressure Mean: 125 Departure Communication (PCP) Patient is a 52-year-old male who presents ED with pain from his shoulder to his right hand. Describes as burning sensation with numbness and tingling. States symptoms have progressively got worse over the past 2 months. Worse over the past few days. Denies any fall or trauma. Denies of any loss of range of motion but states the burning sensation is getting worse. Patient was seen here February [address] scan of his cervical neck which showed multilevel stenosis, chronic, stable from prior exam. There was no fracture, bony destruction or suspicious lytic or sclerotic bone lesion. Patient feels like his right shoulder is out of place. Does have normal passive range of motion. X-ray shows progressive degenerative changes of the right shoulder compared to his prior study with no acute abnormality. Patient denies of any bowel or urine incontinence or saddle paresthesia. Patient received IV fentanyl, Toradol, Norflex and Solu-Medrol. Patient had a slightly tilted to the right which could have associated right-sided cervical muscle spasm. Does have appropriate rn care transition strength with flexion and extension of the right elbow intact. Limited range of motion of the right shoulder secondary to pain. Concerned that this is getting worse. He has had outpatient MRIs ordered but patient cannot lay on the MRI table. Has not followed back up with [facility] since he isnt able to get the MRI. . I do think patient would benefit with an MRI. Do not currently have MRI at this time in the evening. Patient states he is feeling a little bit better at this time after medication would rather follow-up outpatient versus being transferred to a facility with MRI capabilities. Discussed my concerns with patient as this potentially may result in loss of motor function as this appears to be worsening and in moderate distress on arrival. Patient acknowledges. Recommend following up with [facility] tomorrow to discuss an MRI and if not he will return back to the ED. (SAUNDRA KRAFT) Impression Primary Impression: Cervical radiculopathy Disposition: 01 HOME, SELF-CARE Condition: Stable Departure-Patient Inst. Decision time for Depature: 17:54 (SAUNDRA KRAFT) Referrals: [facility] [place]) Primary Care Physician Patient Instructions: Radiculopathy (DC) Add. Discharge Instructions: Need to follow-up to get the MRI. Continue with your regimen of pain medication. If any worsening symptoms return back to ED. Such as loss of motor function. All discharge instructions reviewed with patient and/or family. Voiced understanding. Scripts Oxycodone HCl/Acetaminophen (Oxycodone-Acetaminophen 5-325) 5 Mg-325 Mg Tablet 1 EACH PO Q4H PRN for PAIN-SEVERE MDD 6, #8 TAB Prov: SAUNDRA KRAFT 03/05/23 ATTENDING PHYSICIAN NOTE: I was physically present as attending physician in the emergency department during the care of this patient, but I was not directly involved in the decision making or delivery of care for this patient. (ESTRADA PUGA MD) SAUNDRA KRAFT Mar 05, 2023 16:18 ESTRADA PUGA MD Mar 05, 2023 21:48
--- NOTE | 2023-03-05 16:44 | Diagnostic Imaging Report ---
INDICATION: Right shoulder pain. TECHNIQUE: AP, oblique, and transscapular views of the right shoulder are obtained. FINDINGS: No fracture or dislocation is seen. There is degenerative change of the glenohumeral joint and AC joint which has progressed compared to 05/18/2019. There is a calcification adjacent to the rotator cuff insertion which may represent calcific tendinitis. IMPRESSION: Progressive degenerative change of the right shoulder compared to the prior study with no acute abnormality. There is calcification of the rotator cuff insertion which may represent calcific tendinitis. Dictated by: Dictated on workstation # [id number]
[2023-03-05] MEDS ORDERED: OXYC1TAB11 PO (17:55)
[2023-03-05 18:00] VITALS: BP 121/89
== END 2023-03-05 18:00 | disposition home or self-care (01) ==
LOC: EDUNIT# 15:57 → ER 15:59
DX: M54.12 Radiculopathy, cervical region (principal); G47.30 Sleep apnea, unspecified; F17.210 Nicotine dependence, cigarettes, uncomplicated; Z87.39 Personal history of other diseases of the musculoskeletal system and connective tissue; Z99.89 Dependence on other enabling machines and devices
CPT/HCPCS: 73030

== ENCOUNTER 2023-03-09 20:54 | Emergency (ER) | payer OTHER ==
[~2023-03-09] VITALS: Ht 185.5 cm; Wt 117.0 kg
[~2023-03-09 20:54] MED LIST changes: +OXYC1TAB11 PO
[2023-03-09] MEDS ORDERED: NITROGLYCERIN 0.4 MG SL TABS BTL 25'S SL PRN (21:00)
[2023-03-09] MEDS ORDERED: ASPIRIN 81 MG CHEWABLE TABLET PO ONE (21:00)
--- NOTE | 2023-03-09 21:23 | ED Chest Pain ---
General Chief Complaint: Chest Pain Stated Complaint: SHOULDER/BACK/CHEST PAIN Source: patient, old records History of Present Illness Date Seen by Provider: Mar 09, 2023 Time Seen by Provider: 21:05 Initial Comments PT ARRIVES VIA POV FROM HOME C/O CHEST PAIN IN CENTER OF CHEST, RIGHT ARM/SHOULDER PAIN AND PAIN IN RIGHT SHOULDER BLADE SINCE 0930 THIS AM. STATES PAIN BEGAN WHILE SITTING RATES PAIN 8/10 STATES NOTHING WORSENS OR IMPROVES PAIN LATER STATES THIS SAME EXACT PAIN HAS BEEN GOING ON FOR OVER A MONTH. STATES HE CAN'T LAY DOWN TO SLEEP DUE TO THIS PAIN HE TOOK HIS LAST OXYCODONE AT 1330. HE HAS TAKEN HIS REGULAR FLEXERIL AND MELOXICAM EARLIER TODAY WELL. + NAUSEA, NO VOMITING + SHORTNESS OF BREATH + SWELLING IN LEGS/FEET SINCE YESTERDAY NO PARESTHESIAS OR MOTOR DEFICITS STATES "I GOT BRIDGET HORSES EVERYWHERE" AND THIS HAS BEEN ONGOING FOR THE LAST FEW WEEKS. PT STATES HE WAS SEEN AT [facility] "A COUPLE OF WEEKS AGO" FOR THIS PROBLEM. PT HAS BEEN HERE 5 TIMES SINCE 01/06/23--FOR CHRONIC SHOULDER, NECK, SCAPULAR PAIN HE HAD CT OF C-SPINE AND T-SPINE ON 02/18/23 LAST VISIT 03/05/23 FOR NECK PAIN/CERVICAL RADICULAR PAIN --RX OXYCODONE HE HAS HAD MRI SCHEDULED FOR THIS PROBLEM BUT DID NOT COMPLETE-PT STATES HE COULDN'T LAY STILL FOR THE EXAM. PT CLAIMS HE HAD AN "NE" AT AGE 31. NO CARDIAC CATH, AND DOES NOT SEE A HIGH PRESSURE OPERATOR. HE IS NOT ON ANY CARDIAC MEDICATIONS. HE STATES HE IS DIABETIC, HAS HTN AND HYPERLIPIDEMIA PT HAS LONG HISTORY OF EXTREME NON-COMPLIANCE IN ALL ASPECTS OF CARE. HE DOES NOT TAKE HIS MEDICATIONS PRESCRIBED, HE DOES NOT FOLLOW ANY DIET, AND HE DOES NOT CHECK HIS BLOOD SUGAR PT SMOKES 1 PPD, DRINKS BEER DAILY--STATES HE USED TO BE A BAD ALCOHOLIC BUT I DON'T GET DRUNK ANYMORE PT ALSO HAS HISTORY OF EXTENSIVE DRUG USE--"EVERYTHING YOU CAN THINK OF" DENIES IV USE OR RECENT USE. PT WITH A MULTITUDE OF VISITS FOR VARIOUS COMPLAINTS--NEARLY ALL VARIOUS PAIN COMPLAINTS PCP: [facility], WAS DR. COX UNTIL HIS RECENT HALF-WAY. Allergies and Home Medications Allergies Coded Allergies: morphine (Verified Allergy, Severe, TROUBLE BREATHING, 02/18/23) Penicillins (Verified Allergy, Mild, seizures, 07/17/20) amoxicillin (Verified Allergy, Mild, 07/17/20) clavulanic acid (Verified Allergy, Mild, 07/17/20) shellfish derived (Verified Allergy, Unknown, 07/17/20) codeine (Verified Adverse Reaction, Unknown, unknown, 07/17/20) also had taken PCN but developed rash Patient Home Medication List Home Medication List Reviewed: Yes Cefuroxime Axetil (Cefuroxime) 500 Mg Tablet, 500 MG PO BID Prescribed by: ROSALINA ZURITA on 11/05/22 1013 Cephalexin (Cephalexin) 500 Mg Tablet, 500 MG PO QID Prescribed by: ESTRADA JOY on 06/29/21 0634 Clindamycin HCl (Cleocin HCl) 300 Mg Capsule, 300 MG PO TID Prescribed by: BERNARDO NÚÑEZ on 07/19/20 0936 Cyclobenzaprine HCl (Cyclobenzaprine HCl) 10 Mg Tablet, 10 MG PO Q8H PRN for SPASMS Prescribed by: ROSALINA ZURITA on 01/06/232056 Cyclobenzaprine HCl (Cyclobenzaprine HCl) 10 Mg Tablet, 10 MG PO Q6H Prescribed by: TIA COOMBS MD on 02/15/23 0005 Doxycycline Hyclate (Doxycycline Hyclate) 100 Mg Tablet, 100 MG PO BID Prescribed by: BERNARDO NÚÑEZ on 07/19/20 0936 Gabapentin (Neurontin) 300 Mg Capsule, 300 MG PO Q8H PRN for PAIN BREAKTROUGH Prescribed by: ESTRADA JOY on 02/18/23 174 Ketorolac Tromethamine (Ketorolac Tromethamine) 10 Mg Tablet, 10 MG PO TID Prescribed by: TIA COOMBS MD on 02/15/23 0005 Lisinopril (Lisinopril) 10 Mg Tablet, 10 MG PO DAILY, (Reported) Entered as Reported by: ROMAINE LYLE on 07/17/20 1139 Meloxicam (Meloxicam) 15 Mg Tablet, 15 MG PO DAILY Prescribed by: ROSALINA ZURITA on 11/05/22 1013 Metformin HCl (Metformin HCl) 1,000 Mg Tablet, 1,000 MG PO BID, (Reported) Entered as Reported by: ROMAINE LYLE on 07/17/20 1139 Mupirocin (Mupirocin) 2 % Oint...g., 22 GM TP BID Prescribed by: ROSALINA ZURITA on 11/05/22 1013 Mupirocin Calcium (Mupirocin) 15 Gm Cream..g., 1 APPLIC TP BID Prescribed by: BERNARDO NÚÑEZ on 07/19/20 0932 Naproxen (Naproxen) 500 Mg Tablet.dr, 500 MG PO BID Prescribed by: ROSALINA ZURITA on 01/06/23 205 Oxycodone HCl/Acetaminophen (Percocet 5-325 mg Tablet) 1 Each Tablet, 1-2 TAB PO Q4H PRN for PAIN-MODERATE Prescribed by: BERNARDO NÚÑEZ on 07/19/20 0936 Oxycodone HCl/Acetaminophen (Percocet 5-325 mg Tablet) 1 Each Tablet, 1 TAB PO Q4H PRN for PAIN BREAKTROUGH Prescribed by: ESTRADA JOY on 02/18/23 1744 Oxycodone HCl/Acetaminophen (Oxycodone-Acetaminophen 5-325) 5 Mg-325 Mg Tablet, 1 EACH PO Q4H PRN for PAIN-SEVERE Prescribed by: ESMER BAIN on 03/05/23 1755 Sulfamethoxazole/Trimethoprim (Bactrim Ds Tablet) 1 Each Tablet, 1 EACH PO BID Prescribed by: KRZYSZTOF JEFFERSON on 07/15/20 1239 Sulfamethoxazole/Trimethoprim (Bactrim Ds Tablet) 1 Each Tablet, 1 EACH PO TID Prescribed by: ESTRADA JOY on 06/29/21 0634 Tizanidine HCl (Zanaflex) 4 Mg Capsule, 4 MG PO TID Prescribed by: ROSLAINA ZURITA on 03/09/23 223 Tramadol HCl (Tramadol HCl) 50 Mg Tablet, 50 MG PO Q6H PRN for PAIN Prescribed by: ROSALINA ZURITA on 11/05/22 1013 Tramadol HCl (Tramadol HCl) 50 Mg Tablet, 50 MG PO Q4H Prescribed by: ROSALINA ZURITA on 03/09/232231 Review of Systems Review of Systems Constitutional: no symptoms reported Respiratory: See HPI, Shortness of Air Cardiovascular: See HPI, Chest Pain, Edema; Denies Irregular Heart Rate, Denies Lightheadedness, Denies Palpitations, Denies Syncope Gastrointestinal: See HPI; Denies Abdominal Pain; Nausea; Denies Vomiting Genitourinary: No Symptoms Reported Musculoskeletal: see HPI Skin: no symptoms reported Psychiatric/Neurological: No Symptoms Reported Endocrine: No Symptoms Reported Hematologic/Lymphatic: No Symptoms Reported Past [id number]-Frbkdo Hx Patient Social History Tobacco Use?: Yes Tobacco type used: Cigarettes Smoking Status: Current Everyday Smoker Substance use?: Yes Alcohol Use?: Yes Immunizations Up To Date First/Initial COVID19 Vaccinat: No Vaccine Second COVID19 Vaccination Praful: No Vaccine Third COVID19 Vaccination Date: No Vaccine Seasonal Allergies Seasonal Allergies: Yes Past Medical History Surgery/Hospitalization HX: HTN AND DM2 SURG.-NOSE, GALLBLADDER REMOVAL Surgeries: Yes (NOSE SURGERY, RECTAL ABCESS) Gallbladder Respiratory: Yes Sleep Apnea Currently Using CPAP: Yes Currently Using BIPAP: No Cardiac: Yes High Cholesterol, Hypertension Neurological: No Reproductive Disorders: No Genitourinary: No Gastrointestinal: Yes Chronic Constipation Musculoskeletal: Yes (Cervical spinal stenosis with radiculopathy;[facility] NECK PAIN;[facility] SHOULER PAIN) Degenerate Disk Disease, Arthritis, Chronic Back Pain Endocrine: Yes (OBESITY) Diabetes, Non-Insulin dep HEENT: Yes (EPISTAXIS, NASAL ABSCESS; R MANDIBULAR FX 10/2022; POOR DENTITION) Cancer: No Psychosocial: Yes (HX OF POLYSUBSTANCE ABUSE) Integumentary: Yes (ABSCESSES) Blood Disorders: No Adverse Reaction/Blood Tranf: No (NA) Family Medical History No Pertinent Family Hx SOCIAL HISTORY: PER PT ON 01/06/23 -SMOKES 1 PPD -ETOH--DRINKS BEER DAILY, STATES "I USED TO BE A BAD ALCOHOLIC BUT I DON'T GET DRUNK ANY MORE" --STILL DRINKS BEER DAILY -DRUGS--DENIES IV DRUG USE, BUT STATES HE HAS USED "EVERY THING YOU CAN THINK OF" INCLUDING METH, COCAINE, THC, "EVERYTHING" PAST SURGICAL HISTORY: -CHOLECYSTECTOMY -SURGERY FOR NASAL ABSCESS -SURGERY FOR POSTERIOR EPISTAXIS -SURGERY FOR RECTAL ABSCESS PT HAD RIGHT MANDIBULAR FX DX 11/05/22--NEVER FOLLOWED UP WITH ANYONE PT HAS LONG HISTORY OF EXTREME NON-COMPLIANCE IN ALL ASPECTS OF CARE Physical Exam Vital Signs Vital Signs - First Documented 03/09/23 21:09 Temp 37.3 Pulse 93 Resp 20 B/P (MAP) 137/85 (102) Pulse Ox 95 O2 Delivery Room Air Capillary Refill : Height, Weight, BMI Height: 6'1.00" Weight: 240lbs. oz. 108.893165fg; 34.00 BMI Method:Stated General Appearance: WD/WN, Obese, Other (DIRTY, MALODOROUS, UNKEMPT, REEKS OF CIGARETTES, FEET FILTHY--SOLES OF FEET ARE BLACK. VERY DRAMATIC, MOANING AND WAILING, AND HOLDING HEAD SIDE BENT TO RIGHT. KEEPS EYES CLOSED. CONSTANT MOUTH AND BODY MOVEMENTS. ) HEENT: Other (POOR DENTITION) Neck: Limited Range of Motion, Tender Lateral (MOSTLY ON RIGHT SIDE), Tender Midline, Other (HOLDS HEAD SIDEBENT TO RIGHT. ) Respiratory: Normal Breath Sounds, No Accessory Muscle Use, No Respiratory Distress, Other (MID CHEST TENDER TO PALPATION--REPRODUCES CHEST PAIN ) Cardiovascular: Regular Rate, Rhythm, No JVD, No Murmur, Normal Peripheral Pulses Gastrointestinal: Non Tender, Soft Extremity: Normal Capillary Refill, Non Tender, No Calf Tenderness, Pedal Edema (1+ EDEMA BILATERALLY. 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 driver II- XII Norm as Tested Skin: Normal Color, Warm/Dry; No Rash; Tattoos/Piercings (MULTIPLE TATTOOS) Progress/Results/Core Measures Results/Orders Lab Results Laboratory Tests Test 03/09/23 21:18 Range/Units White Blood Count 10.2 4.3-11.0 10^3/uL Red Blood Count 4.50 4.30-5.52 10^6/uL Hemoglobin 14.5 13.3-17.7 g/dL Hematocrit 44 40-54 % Mean Corpuscular Volume 97 80-99 fL Mean Corpuscular Hemoglobin 32 25-34 pg Mean Corpuscular Hemoglobin Concent 33 32-36 g/dL Red Cell Distribution Width 13.2 10.0-14.5 % Platelet Count 232 130-400 10^3/uL Mean Platelet Volume 10.3 9.0-12.2 fL Immature Granulocyte % (Auto) 1 % Neutrophils (%) (Auto) 58 42-75 % Lymphocytes (%) (Auto) 30 12-44 % Monocytes (%) (Auto) 8 0-12 % Eosinophils (%) (Auto) 3 0-10 % Basophils (%) (Auto) 0 0-10 % Neutrophils # (Auto) 5.9 1.8-7.8 10^3/uL Lymphocytes # (Auto) 3.0 1.0-4.0 10^3/uL Monocytes # (Auto) 0.8 0.0-1.0 10^3/uL Eosinophils # (Auto) 0.3 0.0-0.3 10^3/uL Basophils # (Auto) 0.0 0.0-0.1 10^3/uL Immature Granulocyte # (Auto) 0.1 0.0-0.1 10^3/uL Prothrombin Time 12.4 12.2-14.7 SEC INR Comment 0.9 0.8-1.4 Activated Partial Thromboplast Time 29 24-35 SEC D-Dimer 2.71 H 0.00-0.49 UG/ML Sodium Level 139 135-145 MMOL/L Potassium Level 4.1 3.6-5.0 MMOL/L Chloride Level 102 98-107 MMOL/L Carbon Dioxide Level 28 21-32 MMOL/L Anion Gap 9 5-14 MMOL/L Blood Urea Nitrogen 17 7-18 MG/DL Creatinine 1.04 0.60-1.30 MG/DL Estimat Glomerular Filtration Rate 86 BUN/Creatinine Ratio 16 Glucose Level 188 H 70-105 MG/DL Calcium Level 9.4 8.5-10.1 MG/DL Corrected Calcium 9.3 8.5-10.1 MG/DL Magnesium Level 2.2 1.6-2.4 MG/DL Total Bilirubin 0.3 0.1-1.0 MG/DL Aspartate Amino Transf (AST/SGOT) 19 5-34 U/L Alanine Aminotransferase (ALT/SGPT) 38 0-55 U/L Alkaline Phosphatase 75 40-136 U/L Total Creatine Kinase 176 30-200 U/L Creatine Kinase MB 2.9 <6.6 NG/ML Myoglobin 53.4 10.0-92.0 NG/ML Troponin I < 0.028 <0.028 NG/ML B-Type Natriuretic Peptide < 10.0 <100.0 PG/ML Total Protein 7.3 6.4-8.2 GM/DL Albumin 4.1 3.2-4.5 GM/DL Amylase Level 44 25-125 U/L Lipase 24 8-78 U/L TSH [place] Testing 1.43 0.35-4.94 UIU/ML Serum Alcohol < 10 <10 MG/DL My Orders Orders - ROSALINA ZURITA DO Cbc With Automated Diff (03/09/23 20:58) Magnesium (03/09/23 20:58) Chest 1 View, Ap/Pa Only (03/09/23 20:58) Ekg Tracing (03/09/23 20:58) Comprehensive Metabolic Panel (03/09/23 20:58) Myoglobin Serum (03/09/23 20:58) Protime With Inr (03/09/23 20:58) Partial Thromboplastin Time (03/09/23 20:58) O2 (03/09/23 20:58) Monitor-Rhythm Ecg Trace Only (03/09/23 20:58) Ed Iv/Invasive Line Start (03/09/23 20:58) Creatine Kinase (03/09/23 20:58) Creatine Kinase Mb (03/09/23 20:58) Lipase (03/09/23 20:58) Amylase (03/09/23 20:58) Bnp Bhavesh (03/09/23 20:58) Fibrin Degradation Products (03/09/23 20:58) Troponin I [place] (03/09/23 20:58) Nitroglycerin 0.4 Mg Btl 25's (Nitrostat (03/09/23 21:00) Aspirin Chewable Tablet (Aspirin Chewabl (03/09/23 21:00) Alcohol (03/09/23 21:25) Drug Screen Stat (Urine) (03/09/23 21:25) Thyroid Analyzer (03/09/23 21:25) Ua Culture If Indicated (03/09/23 21:25) Ketorolac Injection (Ketorolac Injection (03/09/23 21:30) Orphenadrine Inj (Ed Only) (Norflex Inje (03/09/23 21:30) Ct Angio Chest W (R/O Pe) (03/09/23 21:52) Rx-Tramadol Hcl (Rx-Ultram) (03/09/23 22:33) Medications Given in ED Current Medications Medications Dose Ordered Sig/Jed Route Start Time Stop Time Status Last Admin Dose Admin Aspirin 324 mg ONCE ONCE PO 03/09/23 21:00 03/09/23 21:01 DC 03/09/23 21:16 324 MG Ketorolac Tromethamine 30 mg ONCE ONCE IVP 03/09/23 21:30 03/09/23 21:31 DC 03/09/23 21:36 30 MG Orphenadrine Citrate 60 mg ONCE ONCE IV 03/09/23 21:30 03/09/23 21:31 DC 03/09/23 21:36 60 MG Vital Signs/I&O 03/09/23 03/09/23 21:09 22:49 Temp 37.3 37.3 Pulse 93 93 Resp 20 16 B/P (MAP) 137/85 (102) 135/92 Pulse Ox 95 97 O2 Delivery Room Air Room Air Progress Progress Note : Progress Note CHEST PAIN PROTOCOL INITIATED GIVEN: -ASPIRIN -NTG HELD PT'S PAIN IS REPRODUCIBLE AND NO EKG CHANGES -TORADOL -NORFLEX EKG IS UNREMARKABLE CXR IS UNREMARKABLE CT CHEST ANGIOGRAM--AFTER INITIALLY AGREEING TO SCAN. WHEN HE GOT TO CT DEPT, HE THEN REFUSED, STATING HE COULDN'T LAY DOWN LABS: -CBC IS NORMAL -CMP WITH GLUCOSE 188, OTHERWISE NORMAL -TROPONIN AND BNP ARE NEGATIVE -TSH IS NORMAL -PT/PTT/INR NORMAL -ETOH NEGATIVE PT WOULD NOT ATTEMPT TO GIVE A URINE SPECIMEN ALL PT'S SYMPTOMS ARE COMPLETELY REPRODUCIBLE WITH PALPATION, AND NONE ARE ACUTE TONIGHT. EKG AND CARDIAC ENZYMES ARE NORMAL DISCUSSED TEST RESULTS, SYMPTOMATIC TREATMENT, ANTICIPATED COURSE, MEDICATIONS, NEED FOR FOLLOW UP AND RETURN PRECAUTIONS. REVIEWED PRIOR RECORDS, INCLUDING ER VISITS, ADMITS, TESTS/PROCEDURES Initial ECG Impression Date: Mar 09, 2023 Initial ECG Impression Time: 21:19 Initial ECG Rate: 94 Initial ECG Rhythm: Normal Sinus (PVC) Initial ECG Intervals: Normal Initial ECG Comparisson: Unchanged Comment INTERPRETED BY ME Diagnostic Imaging Comments CXR--PER RADIOLOGIST REPORT AT 2147 FINDINGS: Normal heart size and central pulmonary vascularity. No focal pulmonary opacity. No pleural effusion or pneumothorax. No acute osseous finding. IMPRESSION: No acute cardiopulmonary finding. CT CHEST ANGIOGRAM--PER [facility] VIA FAX AT Reviewed: Reviewed by Me Departure Impression Primary Impression: Chest wall pain Additional Impression: Chronic neck and back pain Disposition: HOME, SELF-CARE Condition: Stable Departure-Patient Inst. Decision time for Depature: 22:30 Referrals: [facility] (PCP/Family) Primary Care Physician Patient Instructions: CHRONIC PAIN, Chest Pain That Is Not Caused by the Heart (DC), Muscle and Bone Pain (DC) Add. Discharge Instructions: MOIST HEAT TO SORE AREAS AT 20 MINUTE INTERVALS CONTINUE MELOXICAM DAILY. STOP FLEXERIL. START NEW MUSCLE RELAXANT IN THE MORNING DO NOT DRIVE WHILE TAKING MUSCLE RELAXANT OR PAIN MEDICATION FOLLOW UP WITH [facility] IN 2-3 DAYS FOR FURTHER CARE All discharge instructions reviewed with patient and/or family. Voiced understanding. Scripts Tramadol HCl (Tramadol HCl) 50 Mg Tablet 50 MG PO Q4H for Pain, #20 TAB Prov: ROSALINA ZURITA DO 03/09/23 Tizanidine HCl (Zanaflex) 4 Mg Capsule 4 MG PO TID for Spasms, #15 CAP Prov: ROSALINA ZURITA DO 03/09/23 ROSALINA ZURITA DO Mar 09, 2023 21:23
[2023-03-09 21:24] LABS: BASOPHILS % (AUTO) 0 % (0-10); EOSINOPHILS # (AUTO) 0.3 10^3/uL (0.0-0.3); EOSINOPHILS % (AUTO) 3 % (0-10); HEMATOCRIT 44 % (40-54); HEMOGLOBIN 14.5 g/dL (13.3-17.7); LYMPHOCYTES % (AUTO) 30 % (12-44); MEAN CORPUSCULAR HEMOGLOBIN 32 pg (25-34); MEAN CORPUSCULAR HGB CONC 33 g/dL (32-36); MEAN CORPUSCULAR VOLUME 97 fL (80-99); MEAN PLATELET VOLUME 10.3 fL (9.0-12.2); MONOCYTES # (AUTO) 0.8 10^3/uL (0.0-1.0); MONOCYTES % (AUTO) 8 % (0-12); NEUTROPHILS # (AUTO) 5.9 10^3/uL (1.8-7.8); NEUTROPHILS % (AUTO) 58 % (42-75); PLATELET COUNT 232 10^3/uL (130-400); WHITE BLOOD COUNT 10.2 10^3/uL (4.3-11.0)
[2023-03-09] MEDS ORDERED: KETOROLAC INJ 30 MG/ML VIAL IVP ONE (21:30)
[2023-03-09] MEDS ORDERED: ORPHENADRINE 60 MG/2 ML (NORFLEX) AMP (ED ONLY) IV ONE (21:30)
[2023-03-09 21:39] LABS: INR 0.9 (0.8-1.4); PROTHROMBIN TIME PATIENT 12.4 SEC (12.2-14.7)
--- NOTE | 2023-03-09 21:40 | Diagnostic Imaging Report ---
EXAM: Chest 1 view, AP/PA only INDICATION: Chest pain. COMPARISON: None. FINDINGS: Normal heart size and central pulmonary vascularity. No focal pulmonary opacity. No pleural effusion or pneumothorax. No acute osseous finding. IMPRESSION: No acute cardiopulmonary finding. Dictated by: Dictated on workstation # [id number]
[2023-03-09 21:47] LABS: ALANINE AMINOTRANSFERASE 38 U/L (0-55); ALBUMIN 4.1 GM/DL (3.2-4.5); ALKALINE PHOSPHATASE 75 U/L (40-136); AMYLASE 44 U/L (25-125); BILIRUBIN,TOTAL 0.3 MG/DL (0.1-1.0); BUN/CREATININE RATIO 16; CALCIUM 9.4 MG/DL (8.5-10.1); CARBON DIOXIDE 28 MMOL/L (21-32); CHLORIDE 102 MMOL/L (98-107); CREATINE KINASE 176 U/L (30-200); CREATININE SERUM 1.04 MG/DL (0.60-1.30); GFR ESTIMATED 86; GLUCOSE 188 MG/DL (70-105); LIPASE 24 U/L (8-78); MAGNESIUM 2.2 MG/DL (1.6-2.4); POTASSIUM 4.1 MMOL/L (3.6-5.0); SODIUM 139 MMOL/L (135-145); TOTAL PROTEIN 7.3 GM/DL (6.4-8.2)
[2023-03-09 21:55] LABS: CREATINE KINASE MB 2.9 NG/ML (<6.6)
[2023-03-09 22:07] LABS: TSH (THYROID ANALYZER) 1.43 UIU/ML (0.35-4.94)
[2023-03-09 22:21] LABS: FIBRIN DEGRADATION PRODUCTS 2.71 UG/ML (0.00-0.49)
[2023-03-09] MEDS ORDERED: TRAM50TA3 PO (22:32)
[2023-03-09] MEDS ORDERED: TIZA4CAP PO (22:32)
[2023-03-09 22:49] VITALS: BP 135/92
== END 2023-03-09 22:49 | disposition home or self-care (01) ==
LOC: EDUNIT# 20:54 → ER 20:56
DX: R07.89 Other chest pain (principal); M54.2 Cervicalgia; M54.9 Dorsalgia, unspecified; G89.29 Other chronic pain; G47.30 Sleep apnea, unspecified; E66.9 Obesity, unspecified; F17.210 Nicotine dependence, cigarettes, uncomplicated; Z99.89 Dependence on other enabling machines and devices; Z68.34 Body mass index [BMI] 34.0-34.9, adult; Z28.310 Unvaccinated for COVID-19
CPT/HCPCS: 36415; 71045; 80053; 80320; 82150; 82550; 82553; 83690; 83735; 83874; 83880; 84443; 84484; 85025; 85379; 85610; 85730; 93005; 93041

== ENCOUNTER 2023-03-11 07:08 | Emergency (ER) | payer OTHER ==
[~2023-03-11] VITALS: Ht 185 cm; Wt 118.0 kg
[~2023-03-11 07:08] MED LIST changes: +TIZA4CAP PO; +TRAM50TA3 PO
[2023-03-11] MEDS ORDERED: KETAMINE 50 MG/5 ML SYRINGE IV ONE (07:30)
--- NOTE | 2023-03-11 07:37 | ED Back Pain ---
General Chief Complaint: Back Problems Stated Complaint: BACK,CHEST,SHOULDER PAIN Nursing Triage Note: PT TO [facility] WITH CC OF MID BACK AND RT ARM PAIN, STATES HE TOOK TWO TRAMADOL [employer] UNKNOWN TIME, PT HAS BEEN HER MULTIPLE TIMES RECENTLY FOR THE SAME, PAIN STARTED ABOUT A MONTH AGO WITH NO KNOWN CAUSE Source of Information: Patient Exam Limitations: No Limitations History of Present Illness Date Seen by Provider: Mar 11, 2023 Time Seen by Provider: 07:21 Initial Comments Complaint of mid back and right arm pain that has been much worse over the past month or more. This had multiple visits to the emergency department as well as primary care clinic for this. Seen a few days ago for this and was prescribed tramadol for the patient as well as tizanidine. He took 2 of the tramadol this morning or at some time prior to arrival and states that has not helped. He is due to get outpatient MRI but cannot lie flat so there awaiting appointment at [place] where they can do sedation for the MRI. Has known chronic cervical spine degenerative disease with radiculopathy. Complains of charley horses to his right arm and back. These will come and go. Denies breathing problems. Denies chest pain or fever. arrives and states that at he is not getting any relief and he is only sleeping 10 minutes at a time due to the pain. Does smoke cigarettes but denies alcohol or drugs and states he has not drank for a few years Location: C-Spine, T-Spine Timing/Duration: Getting Worse, Other (Course over the last month but chronic over the last couple of years) Severity: Moderate, Severe Pain/Injury Location: Back, Upper Extremity, Neck Radiation: Other (Mostly across the upper back and right arm and neck) Method of Injury: Unknown Modifying Factors: Worse With Movement Associated Symptoms: muscle spasms; No fever, No sensory/motor loss, No lower back pain, No loss of bladder control, No loss of bowel control Allergies and Home Medications Allergies Coded Allergies: morphine (Verified Allergy, Severe, TROUBLE BREATHING, 02/18/23) Penicillins (Verified Allergy, Mild, seizures, 07/17/20) amoxicillin (Verified Allergy, Mild, 07/17/20) clavulanic acid (Verified Allergy, Mild, 07/17/20) shellfish derived (Verified Allergy, Unknown, 07/17/20) codeine (Verified Adverse Reaction, Unknown, unknown, 07/17/20) also had taken PCN but developed rash Patient Home Medication List Home Medication List Reviewed: Yes Cefuroxime Axetil (Cefuroxime) 500 Mg Tablet, 500 MG PO BID Prescribed by: ROSALINA ZURITA on 11/05/22 1013 Cephalexin (Cephalexin) 500 Mg Tablet, 500 MG PO QID Prescribed by: ESTRADA JOY on 06/29/21 0634 Clindamycin HCl (Cleocin HCl) 300 Mg Capsule, 300 MG PO TID Prescribed by: BERNARDO NÚÑEZ on 07/19/20 0936 Cyclobenzaprine HCl (Cyclobenzaprine HCl) 10 Mg Tablet, 10 MG PO Q8H PRN for SPASMS Prescribed by: ROSALINA ZURITA on 01/06/232056 Cyclobenzaprine HCl (Cyclobenzaprine HCl) 10 Mg Tablet, 10 MG PO Q6H Prescribed by: TIA COOMBS MD on 02/15/23 0005 Doxycycline Hyclate (Doxycycline Hyclate) 100 Mg Tablet, 100 MG PO BID Prescribed by: BERNARDO NÚÑEZ on 07/19/20 0936 Gabapentin (Neurontin) 300 Mg Capsule, 300 MG PO Q8H PRN for PAIN BREAKTROUGH Prescribed by: ESTRADA JYO on 02/18/23 174 Ketorolac Tromethamine (Ketorolac Tromethamine) 10 Mg Tablet, 10 MG PO TID Prescribed by: TIA COOMBS MD on 02/15/23 0005 Lisinopril (Lisinopril) 10 Mg Tablet, 10 MG PO DAILY, (Reported) Entered as Reported by: ROMAINE LYLE on 07/17/20 1139 Meloxicam (Meloxicam) 15 Mg Tablet, 15 MG PO DAILY Prescribed by: ROSALINA ZURITA on 11/05/22 1013 Metformin HCl (Metformin HCl) 1,000 Mg Tablet, 1,000 MG PO BID, (Reported) Entered as Reported by: ROMAINE LYLE on 07/17/20 1139 Mupirocin (Mupirocin) 2 % Oint...g., 22 GM TP BID Prescribed by: ROSALINA ZURITA on 11/05/22 1013 Mupirocin Calcium (Mupirocin) 15 Gm Cream..g., 1 APPLIC TP BID Prescribed by: BERNARDO NÚÑEZ on 07/19/20 0932 Naproxen (Naproxen) 500 Mg Tablet.dr, 500 MG PO BID Prescribed by: ROSALINA ZURITA on 01/06/23 205 Oxycodone HCl/Acetaminophen (Percocet 5-325 mg Tablet) 1 Each Tablet, 1-2 TAB PO Q4H PRN for PAIN-MODERATE Prescribed by: BERNARDO NÚÑEZ on 07/19/20 0936 Oxycodone HCl/Acetaminophen (Percocet 5-325 mg Tablet) 1 Each Tablet, 1 TAB PO Q4H PRN for PAIN BREAKTROUGH Prescribed by: ESTRADA JOY on 02/18/23 1744 Oxycodone HCl/Acetaminophen (Oxycodone-Acetaminophen 5-325) 5 Mg-325 Mg Tablet, 1 EACH PO Q4H PRN for PAIN-SEVERE Prescribed by: ESMER BAIN on 03/05/23 1755 Sulfamethoxazole/Trimethoprim (Bactrim Ds Tablet) 1 Each Tablet, 1 EACH PO BID Prescribed by: KRZYSZTOF JEFFERSON on 07/15/20 1239 Sulfamethoxazole/Trimethoprim (Bactrim Ds Tablet) 1 Each Tablet, 1 EACH PO TID Prescribed by: ESTRADA JOY on 06/29/21 0634 Tizanidine HCl (Zanaflex) 4 Mg Capsule, 4 MG PO TID Prescribed by: ROSALINA ZURITA on 03/09/23 223 Tramadol HCl (Tramadol HCl) 50 Mg Tablet, 50 MG PO Q6H PRN for PAIN Prescribed by: ROSALINA ZURITA on 11/05/22 1013 Tramadol HCl (Tramadol HCl) 50 Mg Tablet, 50 MG PO Q4H Prescribed by: ROSALINA ZURITA on 03/09/23 223 Review of Systems Constitutional: see HPI; No chills, No fever EENTM: No nose congestion, No throat pain Respiratory: no symptoms reported Cardiovascular: No chest pain, No edema Gastrointestinal: No nausea, No vomiting Genitourinary: no symptoms reported Musculoskeletal: back pain, joint pain, muscle pain, muscle stiffness, muscle cramps, neck pain Skin: no symptoms reported Past Ivmvixo-Csrzhw-Afvglb Hx Patient Social History Tobacco Use?: Yes Tobacco type used: Cigarettes Smoking Status: Current Everyday Smoker Substance use?: No Alcohol Use?: No Immunizations Up To Date First/Initial COVID19 Vaccinat: No Vaccine Second COVID19 Vaccination Praful: No Vaccine Third COVID19 Vaccination Date: No Vaccine Seasonal Allergies Seasonal Allergies: Yes Past Medical History Surgery/Hospitalization HX: HTN AND DM2, CHRONIC BACK PAIN SURG.-NOSE, GALLBLADDER REMOVAL, Surgeries: Yes (NOSE SURGERY, RECTAL ABCESS) Gallbladder Respiratory: Yes Sleep Apnea Currently Using CPAP: Yes Currently Using BIPAP: No Cardiac: Yes High Cholesterol, Hypertension Neurological: No Reproductive Disorders: No Genitourinary: No Gastrointestinal: Yes Chronic Constipation Musculoskeletal: Yes (Cervical spinal stenosis with radiculopathy;[facility] NECK PAIN;[facility] SHOULER PAIN) Degenerate Disk Disease, Arthritis, Chronic Back Pain Endocrine: Yes (OBESITY) Diabetes, Non-Insulin dep HEENT: Yes (EPISTAXIS, NASAL ABSCESS; R MANDIBULAR FX 10/2022; POOR DENTITION) Cancer: No Psychosocial: Yes (HX OF POLYSUBSTANCE ABUSE) Integumentary: Yes (ABSCESSES) Blood Disorders: No Adverse Reaction/Blood Tranf: No (NA) Family Medical History No Pertinent Family Hx PAST SURGICAL HISTORY: -CHOLECYSTECTOMY -SURGERY FOR NASAL ABSCESS -SURGERY FOR POSTERIOR EPISTAXIS -SURGERY FOR RECTAL ABSCESS PT HAD RIGHT MANDIBULAR FX DX 11/05/22--NEVER FOLLOWED UP WITH ANYONE Physical Exam Vital Signs Vital Signs - First Documented 03/11/23 07:16 Temp 36.3 Pulse 95 Resp 20 B/P (MAP) 138/100 (113) Pulse Ox 95 O2 Delivery Room Air Capillary Refill : Less Than 3 Seconds Height, Weight, BMI Height: 6'1.00" Weight: 240lbs. oz. [id number]; 34.00 BMI Method:Stated General Appearance: No Apparent Distress, WD/WN HEENT: PERRL/EOMI, Pharynx Normal Neck: Tender Lateral, Other (Multiple spasms into the neck) Cardiovascular: Regular Rate, Rhythm, No Murmur Respiratory: Lungs Clear, Normal Breath Sounds Gastrointestinal: Non Tender, Soft Extremity: No Calf Tenderness, Other (Spasms to the right arm with distal pulses and sensation intact) Neurologic/Psychiatric: Alert, Oriented x3 Skin: Normal Color, Warm/Dry Progress/Results/Core Measures Results/Orders Lab Results Laboratory Tests Test 03/11/23 08:00 03/11/23 09:03 03/11/23 10:05 Range/Units White Blood Count 11.1 H 4.3-11.0 10^3/uL Red Blood Count 4.53 4.30-5.52 10^6/uL Hemoglobin 14.6 13.3-17.7 g/dL Hematocrit 45 40-54 % Mean Corpuscular Volume 99 80-99 fL Mean Corpuscular Hemoglobin 32 25-34 pg Mean Corpuscular Hemoglobin Concent 33 32-36 g/dL Red Cell Distribution Width 13.3 10.0-14.5 % Platelet Count 241 130-400 10^3/uL Mean Platelet Volume 10.2 9.0-12.2 fL Immature Granulocyte % (Auto) 0 % Neutrophils (%) (Auto) 63 42-75 % Lymphocytes (%) (Auto) 27 12-44 % Monocytes (%) (Auto) 6 0-12 % Eosinophils (%) (Auto) 3 0-10 % Basophils (%) (Auto) 0 0-10 % Neutrophils # (Auto) 7.0 1.8-7.8 10^3/uL Lymphocytes # (Auto) 3.0 1.0-4.0 10^3/uL Monocytes # (Auto) 0.7 0.0-1.0 10^3/uL Eosinophils # (Auto) 0.4 H 0.0-0.3 10^3/uL Basophils # (Auto) 0.0 0.0-0.1 10^3/uL Immature Granulocyte # (Auto) 0.0 0.0-0.1 10^3/uL Sodium Level 138 135-145 MMOL/L Potassium Level 4.7 3.6-5.0 MMOL/L Chloride Level 103 98-107 MMOL/L Carbon Dioxide Level 25 21-32 MMOL/L Anion Gap 10 5-14 MMOL/L Blood Urea Nitrogen 21 H 7-18 MG/DL Creatinine 1.09 0.60-1.30 MG/DL Estimat Glomerular Filtration Rate 81 BUN/Creatinine Ratio 19 Glucose Level 122 H 70-105 MG/DL Calcium Level 9.4 8.5-10.1 MG/DL Corrected Calcium 9.2 8.5-10.1 MG/DL Total Bilirubin 0.5 0.1-1.0 MG/DL Aspartate Amino Transf (AST/SGOT) 24 5-34 U/L Alanine Aminotransferase (ALT/SGPT) 54 0-55 U/L Alkaline Phosphatase 84 40-136 U/L Troponin I < 0.028 <0.028 NG/ML Total Protein 7.9 6.4-8.2 GM/DL Albumin 4.3 3.2-4.5 GM/DL C-Reactive Protein High Sensitivity 0.71 H 0.00-0.50 MG/DL Urine Color YELLOW Urine Clarity CLEAR Urine pH 5.5 5-9 Urine Specific Gifford >=1.030 1.016-1.022 Urine Protein NEGATIVE NEGATIVE Urine Glucose (UA) NEGATIVE NEGATIVE Urine Ketones NEGATIVE NEGATIVE Urine Nitrite NEGATIVE NEGATIVE Urine Bilirubin NEGATIVE NEGATIVE Urine Urobilinogen 0.2 < = 1.0 MG/DL Urine Leukocyte Esterase NEGATIVE NEGATIVE Urine RBC (Auto) NEGATIVE NEGATIVE Urine RBC NONE /HPF Urine WBC RARE /HPF Urine Squamous Epithelial Cells RARE /HPF Urine Crystals NONE /LPF Urine Bacteria TRACE /HPF Urine Casts NONE /LPF Urine Mucus NEGATIVE /LPF Urine Other FEW SPERM H /HPF Urine Yeast /HPF Urine Culture Indicated NO Urine Opiates Screen NEGATIVE NEGATIVE Urine Oxycodone Screen NEGATIVE NEGATIVE Urine Methadone Screen NEGATIVE NEGATIVE Urine Propoxyphene Screen NEGATIVE NEGATIVE Urine Barbiturates Screen NEGATIVE NEGATIVE Ur Tricyclic Antidepressants Screen NEGATIVE NEGATIVE Urine Phencyclidine Screen NEGATIVE NEGATIVE Urine Amphetamines Screen POSITIVE H NEGATIVE Urine Methamphetamines Screen POSITIVE H NEGATIVE Urine Benzodiazepines Screen POSITIVE H NEGATIVE Urine Cocaine Screen NEGATIVE NEGATIVE Urine Cannabinoids Screen POSITIVE H NEGATIVE My Orders Orders - CAROLINA MALONE MD Ed Iv/Invasive Line Start (03/11/23 07:28) Ekg Tracing (03/11/23 07:28) Monitor-Rhythm Ecg Trace Only (03/11/23 07:28) Chest 1 View, Ap/Pa Only (03/11/23 07:28) Cbc With Automated Diff (03/11/23 07:28) Comprehensive Metabolic Panel (03/11/23 07:28) Drug Screen Stat (Urine) (03/11/23 07:28) Troponin I Bhavesh (03/11/23 07:28) Ketamine Syringe (Ketamine Syringe) (03/11/23 07:30) Ns Iv 1000 Ml (Sodium Chloride 0.9%) (03/11/23 08:03) Ns Iv 1000 Ml (Sodium Chloride 0.9%) (03/11/23 08:05) Dexamethasone Injection (Dexamethasone (03/11/23 08:45) Hydromorphone Injection (Hydromorphone (03/11/23 08:45) Hs C Reactive Protein (03/11/23 09:03) Ua Culture If Indicated (03/11/23 10:03) Ct Angio Chst/Abd/Pelv W (03/11/23 10:13) Diphenhydramine Injection (Diphenhydram (03/11/23 10:15) Hydromorphone Injection (Hydromorphone (03/11/23 10:30) Iohexol Injection (Omnipaque 350 Mg/Ml 1 (03/11/23 10:30) Ns (Ivpb) 100 Ml (Sodium Chloride 0.9% 1 (03/11/23 10:30) Ns Iv 1000 Ml (Sodium Chloride 0.9%) (03/11/23 10:45) Medications Given in ED Current Medications Medications Dose Ordered Sig/Jed Route Start Time Stop Time Status Last Admin Dose Admin Dexamethasone Sodium Phosphate 10 mg ONCE ONCE IV 03/11/23 08:45 03/11/23 08:46 DC 03/11/23 08:42 10 MG Diphenhydramine HCl 25 mg ONCE ONCE IVP 03/11/23 10:15 03/11/23 10:16 DC 03/11/23 10:23 25 MG Hydromorphone HCl 0.5 mg ONCE ONCE IV 03/11/23 08:45 03/11/23 08:46 DC 03/11/23 09:45 0.5 MG Hydromorphone HCl 0.5 mg PRN ONCE IV 03/11/23 10:30 03/11/23 10:31 DC 03/11/23 10:23 0.5 MG Iohexol 100 ml ONCE ONCE IV 03/11/23 10:30 03/11/23 10:31 DC 03/11/23 10:40 100 ML Ketamine HCl 50 mg ONCE ONCE IV 03/11/23 07:30 03/11/23 07:36 DC 03/11/23 08:07 50 MG Sodium Chloride 100 ml ONCE ONCE IV 03/11/23 10:30 03/11/23 10:31 DC 03/11/23 10:40 70 ML Sodium Chloride 1,000 ml @ 0 mls/hr Q0M ONCE IV 03/11/23 10:45 03/11/23 10:46 DC 03/11/23 11:05 900 MLS/HR Vital Signs/I&O 03/11/23 03/11/23 03/11/23 07:16 09:45 10:23 Temp 36.3 36.3 36.3 Pulse 95 Resp 20 B/P (MAP) 138/100 (113) Pulse Ox 95 O2 Delivery Room Air Blood Pressure Mean: 113 Progress Progress Note : Progress Note Seen and evaluated. IV, labs including CBC, CMP and troponin ordered. Patient is intermittently quite drowsy so we will check UDS if he will give a sample. Ketamine 50 mg IV for pain ordered. Monitor patient. Differential diagnosis includes degenerative changes with radiculopathy, cardiac dysfunction Nursing unable to get IV and patient was being quite cranky with the nurse. IV to right AC with 20-gauge needle via ultrasound guidance x1 stick by me with labs drawn as well. We will add normal saline 1 L bolus. Monitor patient. 0818: Chest x-ray reviewed by me. Atelectasis versus infiltrate to the right base on my interpretation. Pending radiology report. 0904: I have ordered Decadron 10 mg IV and I did order Dilaudid 0.5 mg IV if needed. Patient did receive his ketamine and was yelling out for several minutes as ketamine administration was complete. Patient is showing obvious signs of ketamine effect is doing much better now without the Dilaudid and has quieted significantly and is not showing signs of distress. I do believe the ketamine is working. We will monitor him for a while and see how he does. Monitor patient. 0945: Patient is stating the pain is coming back so we will go ahead and initiate the Dilaudid that was previously ordered. CRP is only slightly elevated. I believe the chest x-ray findings are more consistent with atelectasis given the other labs and he is afebrile. Monitor patient. 014: I did have further conversation with the patient and his reports that he has had dark urine and concerns for blood in the urine and due to the pain that he is now reporting in his lower back. He did have elevated D-dimer on previous evaluation and he was unable to tolerate CT angiogram of the chest. He refused that on previous visit. I do believe it is very important that we evaluate this further as dissection of the aorta or offshoot especially to the kidneys is in the differential now. Pulmonary embolism is also still in the differential although he has normal oxygen saturations at this point and not significantly tachycardic. I did discuss all of this and my concerns with the patient and family. Ultimately he is doing a little better now as far as comfort. He has excepted the order and states he will do that especially after talking with his daughter. I did order CT angiogram of the chest, abdomen and pelvis and we will get PE study as well. We will repeat Dilaudid 0.5 mg IV just prior to CT to ensure that he is comfortable enough and patient will be monitored throughout. Does have history of shellfish derived allergy and he has already had Decadron 10 mg IV and we will give Benadryl [address] IV prior to [address] as well. I will repeat order of normal saline 1 L bolus. Monitor patient. 1055: I have reviewed preliminary films for CT angiogram of the chest and do not see obvious pulmonary embolism in review of the angiogram of chest abdomen pelvis does not show obvious dissection to any great extent on my interpretation. The atelectasis versus infiltrate is more prominent on CT of the chest on my interpretation although CRP is low and white count is near normal. This still may represent atelectasis but pneumonia not excluded. Pending radiology read. Monitor patient. 217: CT results reviewed and left renal mass noted. I did speak in depth with patient and family after discussion with Dr. Garza, on-call for [facility]. There is question of right lower lobe pneumonia versus atelectasis. At this point I think we will treat that. He will need outpatient follow-up for both the cervical radiculopathy as well as the left renal mass. Dr. Garza will make a note for the clinic to call him tomorrow for close follow- up and further outpatient management of these. I will continue outpatient steroids as well and I have sent prescription for hydrocodone 7.5/325 1 every 6 hours as needed for pain. I discussed other [id number]-[id number] pain control as well as topical agents with the family and patient verbalized understanding. I did discuss with the patient directly about avoiding methamphetamine and ekaterina ihsan as this will not help his surgical management needs and could have significant adverse effect on him which she verbalized understanding. Discharged home with return precautions. Patient and family verbalized understanding of instructions and agreement with plan. I will send a copy of the note to the clinic. Initial ECG Impression Date: Mar 11, 2023 Initial ECG Impression Time: 07:43 Initial ECG Rate: 88 Initial ECG Rhythm: Normal Sinus Comment Sinus rhythm with normal axis. No evidence of ST elevation ND. Interpreted by me. Morphology similar 01/09/2023. Diagnostic Imaging Diagonstic Imaging: Xray Plain Films/CT/US/NM/MRI: chest Comments [facility] [place] NAME: CANDACE VALDIVIA [facility] REC#: [id number] PT STATUS: REG ER : 1970 PHYSICIAN: CAROLINA MALONE MD ADMIT DATE: 03/11/23/ER Draft Date of Exam:03/11/23 CHEST 1 VIEW, AP/PA ONLY INDICATION: Back pain. TECHNIQUE: Single view chest at 8:20 AM. CORRELATION STUDY: 03/09/2023. FINDINGS: Given patient position, heart size and mediastinum are generally stable. Vasculature may be somewhat accentuated by projection as well. New atelectasis or infiltrate at the right lung base. IMPRESSION: Minimal atelectasis or infiltrate at the right lung base. Dictated on workstation # [id number] Dict: 03/11/23817 Trans: 03/11/23 08 [id number] Interpreted by: TRISH WILKINSON DO Electronically signed by: Diagonstic Imaging: CT Plain Films/CT/US/NM/MRI: chest, abdomen, pelvis Comments [facility] [place] NAME: CANDACE VALDIVIA [facility] REC#: [id number] PT STATUS: REG ER : 1970 PHYSICIAN: CAROLINA MALONE MD ADMIT DATE: 03/11/23/ER Draft Date of Exam:03/11/23 CT ANGIO CHST/ABD/PELV W PROCEDURE: CT angiography of the chest with contrast and CT abdomen and pelvis with contrast. TECHNIQUE: Multiple contiguous axial images were obtained through the chest, abdomen and pelvis after administration of intravenous contrast. 3D MIP reconstructed CT angiography acquisitions of the aorta were then performed. Auto Exposure Controls were utilized during the CT exam to meet ALARA standards for radiation dose reduction. INDICATION: Elevated D-dimer. Chest and back pain. COMPARISON: None. FINDINGS: CTA CHEST: No evidence of dissection or aneurysm in the thoracic aorta. No pulmonary emboli are seen to the segmental pulmonary arteries. The heart size is within normal limits. No pericardial effusion is present. There is no mediastinal, hilar, or axillary lymphadenopathy. Emphysema is seen in the lungs. Patchy and consolidative opacities are seen in the right lung base. No focal mass. No pleural effusion or pneumothorax. No acute osseous abnormalities. CT ABDOMEN AND PELVIS: No aneurysm or dissection in the abdominal aorta. There is atherosclerotic plaque throughout the abdominal aorta. The celiac trunk, SMA, KENYA, and renal arteries are patent. Solid enhancing mass is seen in the left kidney measuring 3.9 x 3.8 cm. The left renal vein is patent. No hydronephrosis or renal calculi. The urinary bladder is unremarkable. There is hepatic steatosis. No focal hepatic lesions. The gallbladder is surgically absent. The portal vein is patent. The spleen, pancreas, and adrenal glands have a normal appearance. There is no pathologically enlarged mesenteric or retroperitoneal adenopathy. The bowel loops are nondilated. The appendix is visualized in the right lower quadrant and has a normal appearance. There is no free fluid or free air. No acute osseous abnormalities. Small fat-containing left inguinal hernia is seen. There is no free air, loculated collection, or adenopathy in the pelvis. IMPRESSION: 1. No evidence of aneurysm or dissection in the thoracic and abdominal aorta. 2. No pulmonary emboli to the segmental pulmonary arteries. 3. Solid renal mass in the left kidney representing renal cell carcinoma until proven otherwise. No signs of metastatic disease are seen at this time. 4. Patchy and consolidative opacities in the right lung base, concerning for pneumonia. Components of atelectasis could also be present. Dictated on workstation # [id number] Dict: 03/11/23 1101 Trans: 03/11/23 1120 [id number] Interpreted by: AMADOU RHOADES DO Electronically signed by: Reviewed: Reviewed by Me Departure Impression Primary Impression: Cervical radiculopathy Additional Impressions: Right lower lobe pneumonia Qualified Codes: J18.9 - Pneumonia, unspecified organism Left kidney mass Disposition: 01 HOME, SELF-CARE Condition: Stable Departure-Patient Inst. Decision time for Depature: 12:20 Referrals: [facility] [place] (PCP/Family) Primary Care Physician Patient Instructions: Kidney cancer, Pneumonia, Adult ED, Radiculopathy (DC) Add. Discharge Instructions: All discharge instructions reviewed with patient and/or family. Voiced understanding. It is very important that you follow-up with the clinic for further evaluation and management of the neck pain as well as the mass noted on the left kidney. These will both need further work-up. The clinic should call you tomorrow but you may also call them and let them know the case was discussed with Dr. Garza, who was arranging close follow-up. Take medications as directed. You may use topical agents such as IcyHot with lidocaine, Aspercreme with lidocaine, Kevin onpas with lidocaine cream to the area of concern per package directions. Stop the tramadol while taking the other prescribed pain medicine. Do not take both at the same time. It is important to try to sit where you can get your feet up to reduce swelling. Return for worse pain, fever, vomiting, weakness, breathing problems or other concerns as needed. Scripts Prednisone (Prednisone) 20 Mg Tab 40 MG PO DAILY, #14 TAB 0 Refills Prov: CAROLINA MALONE MD 03/11/23 Hydrocodone/Acetaminophen (Hydrocodone-Acetamin 7.5-325) 7.5 Mg-325 Mg Tablet 1 EACH PO Q6H PRN for PAIN-MODERATE (5-7) for 7 Days, #16 TAB 0 Refills Prov: CAROLINA MALONE MD 03/11/23 Cefdinir (Cefdinir) 300 Mg Capsule 300 MG PO BID, #14 CAP 0 Refills Prov: CAROLINA MALONE MD 03/11/23 Copy Copies To 1: LOLITA GARZA MD, TIMOTHY D MD Mar 11, 2023 07:37
[2023-03-11] MEDS ORDERED: NS IV 1000 ML 1,000 ML IV STA (08:03)
[2023-03-11] MEDS ORDERED: NS IV 1000 ML 1,000 ML ONE (08:05)
[2023-03-11 08:09] LABS: BASOPHILS % (AUTO) 0 % (0-10); EOSINOPHILS # (AUTO) 0.4 10^3/uL (0.0-0.3); EOSINOPHILS % (AUTO) 3 % (0-10); HEMATOCRIT 45 % (40-54); HEMOGLOBIN 14.6 g/dL (13.3-17.7); LYMPHOCYTES % (AUTO) 27 % (12-44); MEAN CORPUSCULAR HEMOGLOBIN 32 pg (25-34); MEAN CORPUSCULAR HGB CONC 33 g/dL (32-36); MEAN CORPUSCULAR VOLUME 99 fL (80-99); MEAN PLATELET VOLUME 10.2 fL (9.0-12.2); MONOCYTES # (AUTO) 0.7 10^3/uL (0.0-1.0); MONOCYTES % (AUTO) 6 % (0-12); NEUTROPHILS % (AUTO) 63 % (42-75); PLATELET COUNT 241 10^3/uL (130-400); WHITE BLOOD COUNT 11.1 10^3/uL (4.3-11.0)
--- NOTE | 2023-03-11 08:20 | Diagnostic Imaging Report ---
INDICATION: Back pain. TECHNIQUE: Single view chest at 8:20 AM. CORRELATION STUDY: 03/09/2023. FINDINGS: Given patient position, heart size and mediastinum are generally stable. Vasculature may be somewhat accentuated by projection as well. New atelectasis or infiltrate at the right lung base. IMPRESSION: Minimal atelectasis or infiltrate at the right lung base. Dictated by: Dictated on workstation # [id number]
[2023-03-11] MEDS ORDERED: HYDROmorphone INJECTION 2 MG/ML VIAL IV ONE ×2 (08:45→10:30)
[2023-03-11] MEDS ORDERED: dexAMETHasone INJ 10 MG/ML 1 ML VIAL IV ONE (08:45)
[2023-03-11 08:53] LABS: ALBUMIN 4.3 GM/DL (3.2-4.5)
[2023-03-11 08:54] LABS: CHLORIDE 103 MMOL/L (98-107); POTASSIUM 4.7 MMOL/L (3.6-5.0); SODIUM 138 MMOL/L (135-145)
[2023-03-11 08:55] LABS: CALCIUM 9.4 MG/DL (8.5-10.1)
[2023-03-11 08:56] LABS: GLUCOSE 122 MG/DL (70-105); TOTAL PROTEIN 7.9 GM/DL (6.4-8.2)
[2023-03-11 08:57] LABS: CARBON DIOXIDE 25 MMOL/L (21-32)
[2023-03-11 08:58] LABS: BILIRUBIN,TOTAL 0.5 MG/DL (0.1-1.0)
[2023-03-11 08:59] LABS: ALKALINE PHOSPHATASE 84 U/L (40-136)
[2023-03-11 09:00] LABS: CREATININE SERUM 1.09 MG/DL (0.60-1.30); GFR ESTIMATED 81
[2023-03-11 09:01] LABS: BUN/CREATININE RATIO 19
[2023-03-11 09:03] LABS: ALANINE AMINOTRANSFERASE 54 U/L (0-55)
[2023-03-11] MEDS ORDERED: diphenhydrAMINE INJ 50 MG/ML VIAL IVP ONE (10:15)
[2023-03-11 10:28] LABS: BACTERIA,URINE TRACE /HPF; BILIRUBIN,URINE NEGATIVE (NEGATIVE); CLARITY,URINE CLEAR; COLOR,URINE YELLOW; GLUCOSE, URINE (UA) NEGATIVE (NEGATIVE); KETONES,URINE NEGATIVE (NEGATIVE); LEUKOCYTE ESTERASE ,URINE NEGATIVE (NEGATIVE); NITRITE,URINE NEGATIVE (NEGATIVE); PH,URINE 5.5 (5-9); PROTEIN,URINE NEGATIVE (NEGATIVE); SQUAMOUS EPITHELIAL CELL,UR RARE /HPF; WBC,URINE RARE /HPF
[2023-03-11 10:29] LABS: URINE OTHER FEW SPERM /HPF
[2023-03-11 10:30] LABS: AMPHETAMINE SCREEN, URINE POSITIVE (NEGATIVE); BARBITURATE SCREEN URINE NEGATIVE (NEGATIVE); BENZODIAZEPINES SCREEN URINE POSITIVE (NEGATIVE); CANNABINOID SCREEN, URINE POSITIVE (NEGATIVE); COCAINE SCREEN URINE NEGATIVE (NEGATIVE); METHADONE STAT NEGATIVE (NEGATIVE); OPIATE SCREEN URINE NEGATIVE (NEGATIVE); PROPOXYPHENE STAT NEGATIVE (NEGATIVE); TRICYCLIC ANTIDEPRESSANTS SCRE NEGATIVE (NEGATIVE)
[2023-03-11] MEDS ORDERED: NS 100 ML (IVPB) BAG IV ONE (10:30)
[2023-03-11] MEDS ORDERED: IOHEXOL 350 MG/ML 100 ML (OMNIPAQUE 350) VIAL IV ONE (10:30)
[2023-03-11 10:31] LABS: OXYCODONE STAT NEGATIVE (NEGATIVE)
[2023-03-11] MEDS ORDERED: NS IV 1000 ML 1,000 ML IV ONE (10:45)
--- NOTE | 2023-03-11 11:22 | Diagnostic Imaging Report ---
PROCEDURE: CT angiography of the chest with contrast and CT abdomen and pelvis with contrast. TECHNIQUE: Multiple contiguous axial images were obtained through the chest, abdomen and pelvis after administration of intravenous contrast. 3D MIP reconstructed CT angiography acquisitions of the aorta were then performed. Auto Exposure Controls were utilized during the CT exam to meet ALARA standards for radiation dose reduction. INDICATION: Elevated D-dimer. Chest and back pain. COMPARISON: None. FINDINGS: CTA CHEST: No evidence of dissection or aneurysm in the thoracic aorta. No pulmonary emboli are seen to the segmental pulmonary arteries. The heart size is within normal limits. No pericardial effusion is present. There is no mediastinal, hilar, or axillary lymphadenopathy. Emphysema is seen in the lungs. Patchy and consolidative opacities are seen in the right lung base. No focal mass. No pleural effusion or pneumothorax. No acute osseous abnormalities. CT ABDOMEN AND PELVIS: No aneurysm or dissection in the abdominal aorta. There is atherosclerotic plaque throughout the abdominal aorta. The celiac trunk, SMA, KENYA, and renal arteries are patent. Solid enhancing mass is seen in the left kidney measuring 3.9 x 3.8 cm. The left renal vein is patent. No hydronephrosis or renal calculi. The urinary bladder is unremarkable. There is hepatic steatosis. No focal hepatic lesions. The gallbladder is surgically absent. The portal vein is patent. The spleen, pancreas, and adrenal glands have a normal appearance. There is no pathologically enlarged mesenteric or retroperitoneal adenopathy. The bowel loops are nondilated. The appendix is visualized in the right lower quadrant and has a normal appearance. There is no free fluid or free air. No acute osseous abnormalities. Small fat-containing left inguinal hernia is seen. There is no free air, loculated collection, or adenopathy in the pelvis. IMPRESSION: 1. No evidence of aneurysm or dissection in the thoracic and abdominal aorta. 2. No pulmonary emboli to the segmental pulmonary arteries. 3. Solid renal mass in the left kidney representing renal cell carcinoma until proven otherwise. No signs of metastatic disease are seen at this time. 4. Patchy and consolidative opacities in the right lung base, concerning for pneumonia. Components of atelectasis could also be present. Dictated by: Dictated on workstation # [id number]
[2023-03-11] MEDS ORDERED: PRD20T PO (12:15)
[2023-03-11] MEDS ORDERED: HYDR-3817 PO (12:15)
[2023-03-11] MEDS ORDERED: CEFD300C3 PO (12:15)
[2023-03-11 12:28] VITALS: BP 120/93
== END 2023-03-11 12:28 | disposition home or self-care (01) ==
LOC: EDUNIT# 07:08 → ER 07:09
DX: M50.10 Cervical disc disorder with radiculopathy, unspecified cervical region (principal); M48.02 Spinal stenosis, cervical region; J18.9 Pneumonia, unspecified organism; N28.89 Other specified disorders of kidney and ureter; J98.11 Atelectasis; F17.210 Nicotine dependence, cigarettes, uncomplicated; G47.30 Sleep apnea, unspecified; E66.9 Obesity, unspecified; Z99.89 Dependence on other enabling machines and devices; Z68.34 Body mass index [BMI] 34.0-34.9, adult; Z28.310 Unvaccinated for COVID-19; Z88.5 Allergy status to narcotic agent; Z88.0 Allergy status to penicillin
CPT/HCPCS: 36415; 71045; 71275; 74174; 80053; 80306; 81000; 84484; 85025; 86141; 93005; 93041

== ENCOUNTER 2023-05-01 13:08 | Outpatient (RCR) | payer OTHER ==
[~2023-05-01 13:08] MED LIST changes: +CEFD300C3 PO; +HYDR-3817 PO; +PRD20T PO
== END 2023-05-29 | disposition home or self-care (01) ==
LOC: ONC 13:08
PROVIDERS: ATTEND Internal Medicine Hematology & Oncology
DX: C64.9 Malignant neoplasm of unspecified kidney, except renal pelvis (principal); E11.9 Type 2 diabetes mellitus without complications; I10 Essential (primary) hypertension
CPT/HCPCS: 99204

== ENCOUNTER 2023-05-08 16:49 | Inpatient (IN) | payer OTHER ==
[~2023-05-08] VITALS: Ht 182.8 cm; Wt 135.0 kg
[2023-05-08] MEDS ORDERED: TICAGRELOR 90 MG TABLET (BRILINTA) PO STA (16:57)
[2023-05-08] MEDS ORDERED: fentaNYL INJECTION 100 MCG/2 ML VIAL IVP ONE (17:00)
[2023-05-08] MEDS ORDERED: MIDAZOLAM INJ 2 MG/2 ML VIAL IVP ONE (17:00)
[2023-05-08] MEDS ORDERED: ONDANSETRON INJECTION 4 MG/2 ML (SDV) IVP ONE (17:00)
[2023-05-08] MEDS ORDERED: morphine INJ 4 MG/ML 1 ML (VIAL/SYRINGE) IVP ONE (17:00)
[2023-05-08] MEDS ORDERED: MIDAZOLAM INJ 2 MG/2 ML VIAL ONE (17:00)
[2023-05-08] MEDS ORDERED: NITROGLYCERIN 0.4 MG SL TABLETS BTL 25'S SL PRN (17:00)
[2023-05-08] MEDS ORDERED: HEParin 1000 UNIT/ML (10ML VIAL) FOR BOLUS ONE (17:01)
[2023-05-08] MEDS ORDERED: fentaNYL INJECTION 100 MCG/2 ML VIAL ONE (17:01)
[2023-05-08] MEDS ORDERED: LIDOCAINE 1% INJ 20 ML VIAL ONE (17:01)
[2023-05-08] MEDS ORDERED: MIDAZOLAM INJ 5 MG/5 ML VIAL ONE (17:01)
[2023-05-08] MEDS ORDERED: HEParin (CATH LAB) 2,000 ML IV ONE (17:02)
[2023-05-08] MEDS ORDERED: NS IV 1000 ML 1,000 ML ONE ×2 (17:02→17:21)
--- NOTE | 2023-05-08 17:09 | ED Chest Pain ---
General Chief Complaint: Chest Pain Stated Complaint: CHEST PAIN Nursing Triage Note: PT TO ED PER EMS WITH C/O CHEST PAIN FOR ABOUT 1 HOUR Source: patient, EMS, old records Exam Limitations: no limitations History of Present Illness Date Seen by Provider: May 08, 2023 Time Seen by Provider: 16:50 Initial Comments This 53-year-old gentleman presents to the emergency room via EMS with STEMI. Chest pain started about 1 hour prior to arrival. He has history of HI reportedly at age 31. He denies any interventions such as stenting. He presently takes no heart related medications. He received nitroglycerin x1, aspirin 324 mg, and morphine 4 mg IV by EMS in route. He arrives in distress. There is marked ST elevation in multiple leads on the field EKG. He remains markedly hypertensive. Dr. Rios was contacted and notified of STEMI at 1646 based on field EKG prior to patient's arrival. Patient states he was evaluated at this facility 22 years ago when he had his HI at age 31. This precedes current medical records. He reports a heart cath was not performed. He was treated medically. Patient's primary care provider is at [facility]. He does not presently follow with a orthophotography technician. Allergies and Home Medications Allergies Coded Allergies: morphine (Verified Allergy, Severe, TROUBLE BREATHING, 02/18/23) Penicillins (Verified Allergy, Mild, seizures, 07/17/20) amoxicillin (Verified Allergy, Mild, 07/17/20) clavulanic acid (Verified Allergy, Mild, 07/17/20) shellfish derived (Verified Allergy, Unknown, 07/17/20) codeine (Verified Adverse Reaction, Unknown, unknown, 07/17/20) also had taken PCN but developed rash Patient Home Medication List Home Medication List Reviewed: Yes Cefdinir (Cefdinir) 300 Mg Capsule, 300 MG PO BID Prescribed by: CAROLINA MALONE on 03/11/23 1215 Cefuroxime Axetil (Cefuroxime) 500 Mg Tablet, 500 MG PO BID Prescribed by: ROSALINA ZURITA on 11/05/22 1013 Cephalexin (Cephalexin) 500 Mg Tablet, 500 MG PO QID Prescribed by: ESTRADA JOY on 06/29/21 0634 Clindamycin HCl (Cleocin HCl) 300 Mg Capsule, 300 MG PO TID Prescribed by: BERNARDO NÚÑEZ on 07/19/20935 Cyclobenzaprine HCl (Cyclobenzaprine HCl) 10 Mg Tablet, 10 MG PO Q8H PRN for SPASMS Prescribed by: ROSALINA ZURITA on 01/06/232056 Cyclobenzaprine HCl (Cyclobenzaprine HCl) 10 Mg Tablet, 10 MG PO Q6H Prescribed by: TIA COOMBS MD on 02/15/234 Doxycycline Hyclate (Doxycycline Hyclate) 100 Mg Tablet, 100 MG PO BID Prescribed by: BERNARDO NÚÑEZ on 07/19/20935 Gabapentin (Neurontin) 300 Mg Capsule, 300 MG PO Q8H PRN for PAIN BREAKTROUGH Prescribed by: ESTRADA JOY on 02/18/231742 Hydrocodone/Acetaminophen (Hydrocodone-Acetamin 7.5-325) 7.5 Mg-325 Mg Tablet, 1 EACH PO Q6H PRN for PAIN-MODERATE (5-7) Prescribed by: CAROLINA MALONE on 03/11/23 121 Ketorolac Tromethamine (Ketorolac Tromethamine) 10 Mg Tablet, 10 MG PO TID Prescribed by: TIA COOMBS MD on 02/15/234 Lisinopril (Lisinopril) 10 Mg Tablet, 10 MG PO DAILY, (Reported) Entered as Reported by: ROMAINE LYLE on 07/17/20 1139 Meloxicam (Meloxicam) 15 Mg Tablet, 15 MG PO DAILY Prescribed by: ROSALINA ZURITA on 11/05/22 101 Metformin HCl (Metformin HCl) 1,000 Mg Tablet, 1,000 MG PO BID, (Reported) Entered as Reported by: ROMAINE LYLE on 07/17/20 1139 Mupirocin (Mupirocin) 2 % Oint...g., 22 GM TP BID Prescribed by: ROSALINA ZURITA on 11/05/22 101 Mupirocin Calcium (Mupirocin) 15 Gm Cream..g., 1 APPLIC TP BID Prescribed by: BERNARDO NÚÑEZ on 07/19/20 0932 Naproxen (Naproxen) 500 Mg Tablet.dr, 500 MG PO BID Prescribed by: ROSALINA ZURITA on 01/06/232056 Oxycodone HCl/Acetaminophen (Percocet 5-325 mg Tablet) 1 Each Tablet, 1-2 TAB PO Q4H PRN for PAIN-MODERATE Prescribed by: BERNARDO NÚÑEZ on 07/19/20 0936 Oxycodone HCl/Acetaminophen (Percocet 5-325 mg Tablet) 1 Each Tablet, 1 TAB PO Q4H PRN for PAIN BREAKTROUGH Prescribed by: ESTRADA JOY on 02/18/23 1744 Oxycodone HCl/Acetaminophen (Oxycodone-Acetaminophen 5-325) 5 Mg-325 Mg Tablet, 1 EACH PO Q4H PRN for PAIN-SEVERE Prescribed by: ESMER BAIN on 03/05/23 1755 Prednisone (Prednisone) 20 Mg Tab, 40 MG PO DAILY Prescribed by: CAROLINA MALONE on 03/11/23 1215 Sulfamethoxazole/Trimethoprim (Bactrim Ds Tablet) 1 Each Tablet, 1 EACH PO BID Prescribed by: KRZYSZTOF JEFFERSON on 07/15/20 1239 Sulfamethoxazole/Trimethoprim (Bactrim Ds Tablet) 1 Each Tablet, 1 EACH PO TID Prescribed by: ESTRADA JOY on 06/29/21 0634 Tizanidine HCl (Zanaflex) 4 Mg Capsule, 4 MG PO TID Prescribed by: ROSALINA ZURITA on 03/09/232231 Tramadol HCl (Tramadol HCl) 50 Mg Tablet, 50 MG PO Q6H PRN for PAIN Prescribed by: ROSALINA ZURITA on 11/05/22 1013 Tramadol HCl (Tramadol HCl) 50 Mg Tablet, 50 MG PO Q4H Prescribed by: ROSALINA ZURITA on 03/09/232231 Review of Systems Review of Systems Constitutional: no symptoms reported EENTM: No Symptoms Reported Respiratory: No Symptoms Reported Cardiovascular: See HPI Gastrointestinal: See HPI, Nausea Genitourinary: No Symptoms Reported Musculoskeletal: no symptoms reported Skin: no symptoms reported Psychiatric/Neurological: No Symptoms Reported Endocrine: No Symptoms Reported Hematologic/Lymphatic: No Symptoms Reported Past Jfzfrbs-Lgxjys-Zqnzds Hx Patient Social History Tobacco Use?: Yes Tobacco type used: Cigarettes Substance use?: Yes Substance type: Marijuana Alcohol Use?: No Immunizations Up To Date First/Initial COVID19 Vaccinat: No Vaccine Second COVID19 Vaccination Praful: No Vaccine Third COVID19 Vaccination Date: No Vaccine Seasonal Allergies Seasonal Allergies: Yes Past Medical History Surgery/Hospitalization HX: HTN AND DM2, CHRONIC BACK PAIN SURG.-NOSE, GALLBLADDER REMOVAL, Surgeries: Yes (NOSE SURGERY, RECTAL ABCESS) Gallbladder Respiratory: Yes Sleep Apnea Currently Using CPAP: Yes Currently Using BIPAP: No Cardiac: Yes Heart Attack (Reported HI at age 31 without intervention), High Cholesterol, Hypertension Neurological: No Reproductive Disorders: No Genitourinary: No Gastrointestinal: Yes Chronic Constipation Musculoskeletal: Yes (Cervical spinal stenosis with radiculopathy;CHR NECK PAIN;CHR SHOULER PAIN) Degenerate Disk Disease, Arthritis, Chronic Back Pain Endocrine: Yes (OBESITY) Diabetes, Non-Insulin dep HEENT: Yes (EPISTAXIS, NASAL ABSCESS; R MANDIBULAR FX 10/2022; POOR DENTITION) Cancer: No Psychosocial: Yes (HX OF POLYSUBSTANCE ABUSE) Integumentary: Yes (ABSCESSES) Blood Disorders: No Adverse Reaction/Blood Tranf: No (NA) Family Medical History No Pertinent Family Hx PAST SURGICAL HISTORY: -CHOLECYSTECTOMY -SURGERY FOR NASAL ABSCESS -SURGERY FOR POSTERIOR EPISTAXIS -SURGERY FOR RECTAL ABSCESS PT HAD RIGHT MANDIBULAR FX DX 11/05/22--NEVER FOLLOWED UP WITH ANYONE Physical Exam Vital Signs Vital Signs - First Documented 05/08/23 16:55 Temp 37.5 Pulse 105 Resp 31 B/P (MAP) 174/128 (143) Pulse Ox 98 Capillary Refill : Height, Weight, BMI Height: 6'1.00" Weight: 240lbs. oz. 108.180558ph; 38.00 BMI Method:Stated General Appearance: WD/WN, Obese, Severe Distress HEENT: PERRL/EOMI, Normal ENT Inspection Neck: Normal Inspection; No JVD Respiratory: Lungs Clear, Normal Breath Sounds, No Accessory Muscle Use Cardiovascular: Regular Rate, Rhythm, No Edema, No Murmur Gastrointestinal: Non Tender, Soft Extremity: Normal Inspection, No Pedal Edema Neurologic/Psychiatric: Alert, Oriented x3, No Motor/Sensory Deficits, Normal Mood/Affect Skin: Normal Color, Warm/Dry Critical Care Note Critical Care Start Time: 16:45 Stop Time: 17:20 Total Time (minutes) 30 Progress 30 minutes of critical care time was dedicated to this patient starting with receiving report from EMS and providing orders in the field. Patient was immediately seen upon arrival. Critical care included bedside care, coordination of care with Dr. Rios (orthophotography technician), interpretation of EKG, monitoring and treating abnormal vital signs, coordination with Coding Support Specialist, communication with patient and family, shared decision making with patient, etc. Progress/Results/Core Measures Results/Orders Lab Results Laboratory Tests Test 05/08/23 16:55 Range/Units Albumin 4.5 3.2-4.5 GM/DL My Orders Orders - ESTRADA PUGA MD Ekg Tracing (05/08/23 16:54) Ticagrelor Tablet (Brilinta Tablet) (05/08/23 16:57) Nitroglycerin 0.4 Mg Btl 25's (Nitroglyc (05/08/23 17:00) Heparin Injection (Heparin Injection) (05/08/23 16:57) Morphine Injection (Morphine Injection (05/08/23 17:00) Ondansetron Injection (Ondansetron Inj (05/08/23 17:00) Fentanyl Injection (Fentanyl Injection (05/08/23 17:00) Midazolam Injection (Midazolam Injection (05/08/23 17:00) Cbc And Automated Diff (05/08/23 17:10) Magnesium (05/08/23 17:10) Chest 1 View, Ap/Pa Only (05/08/23 17:10) Comprehensive Metabolic Panel (05/08/23 17:10) Myoglobin Serum (05/08/23 17:10) Protime With Inr (05/08/23 17:10) Partial Thromboplastin Time (05/08/23 17:10) O2 (05/08/23 17:10) Monitor-Rhythm Ecg Trace Only (05/08/23 17:10) Lipid Panel (05/09/23 06:00) Ed Iv/Invasive Line Start (05/08/23 17:10) Troponin I Travis (05/08/23 17:10) Medications Given in ED Current Medications Medications Dose Ordered Sig/Jed Route Start Time Stop Time Status Last Admin Dose Admin Fentanyl Citrate 100 mcg ONCE ONCE IVP 05/08/23 17:00 05/08/23 17:01 DC 05/08/23 17:05 100 MCG Midazolam HCl 2 mg ONCE ONCE IVP 05/08/23 17:00 05/08/23 17:02 DC 05/08/23 17:02 2 MG Morphine Sulfate 4 mg ONCE ONCE IVP 05/08/23 17:00 05/08/23 17:01 DC 05/08/23 16:57 4 MG Nitroglycerin 0.4 mg UD PRN SL 05/08/23 17:00 05/08/23 17:05 0.4 MG Ondansetron HCl 8 mg ONCE ONCE IVP 05/08/23 17:00 05/08/23 17:01 DC 05/08/23 16:57 8 MG Vital Signs/I&O 05/08/23 16:55 Temp 37.5 Pulse 105 Resp 31 B/P (MAP) 174/128 (143) Pulse Ox 98 Blood Pressure Mean: 143 Progress Progress Note #1: Time: 17:06 Progress Note Patient has marked ST elevation in numerous leads on his EKG sparing only lead I and V4. Dr. Rios presented to the emergency room promptly after patient's arrival. Coding Support Specialist has been activated prior to patient's arrival. A patient was currently being prepped on the Coding Support Specialist table, the lab is being turned over and will receive patient as soon as possible. In the meantime, patient is receiving the following additional medications: Morphine 4 mg IV, nitroglycerin sublingual, Zofran 8 mg IV, Brilinta 180 mg orally, heparin 5000 units IV, fentanyl 100 mcg IV, Versed 2 mg IV. Patient's pain is now dissipating. I have contacted patient's brother, Chapin Rodriguez, to inform him of the situation. He will present to the hospital soon as possible and notify patient's as well. Progress Note #2: Time: 17:19 Progress Note Patient was much improved after receiving above medications. He has now been transferred to Coding Support Specialist for immediate PCI. I discussed CODE STATUS with the patient, and he elects full code at this time. Initial ECG Impression Date: May 08, 2023 Initial ECG Impression Time: 16:56 Initial ECG Rate: 104 Initial ECG Rhythm: S.Tach Initial ECG Impression: Acute HI Comment Sinus tachycardia with diffuse ST elevations sparing only 1 and V4. No other noted abnormal intervals or axis deviation. EKG is positive for STEMI. Departure Communication (Admissions) Time/Spoke to Admitting Phy: 16:46 Dr. Rios Impression Primary Impression: STEMI (ST elevation myocardial infarction) Qualified Codes: I21.3 - ST elevation (STEMI) myocardial infarction of unspecified site Additional Impression: Hypertensive emergency Disposition: 09 ADMITTED INPATIENT Condition: Critical Admissions Decision to Admit Reason: Admit from ER (General) Decision to Admit/Date: May 08, 2023 Time/Decision to Admit Time: 16:46 Departure-Patient Inst. Referrals: [facility] (PCP/Family) Primary Care Physician Copy Copies To 1: [facility] Copies To 2: CHARLEEN RIOS MD, JOSHUA T MD May 08, 2023 17:09
[2023-05-08] MEDS ORDERED: VERAPAMIL 5 MG/2 ML (CALAN) VIAL IV ONE (17:11)
--- NOTE | 2023-05-08 17:11 | Consultation-Cardiology ---
HPI-Cardiology Cardiology Consultation Date of Consultation 05/08/23 Date of Admission Time Seen by Provider: 17:08 Indication: Chest pain HPI 53-year-old gentleman with a history of coronary artery disease, renal cell carcinoma with mets. Degenerative joint disease and chronic back pain. Patient started to have chest pain. Came into the emergency room by ambulance and he wa s noted to have ST elevation in the inferior leads. Patient cannot lay down still, in significant pain due to his back pain, having some chest pressure which is persistent. Still having significant ST elevation Home Medications & Allergies Allergies: Coded Allergies: morphine (Verified Allergy, Severe, TROUBLE BREATHING, 02/18/23) Penicillins (Verified Allergy, Mild, seizures, 07/17/20) amoxicillin (Verified Allergy, Mild, 07/17/20) clavulanic acid (Verified Allergy, Mild, 07/17/20) shellfish derived (Verified Allergy, Unknown, 07/17/20) codeine (Verified Adverse Reaction, Unknown, unknown, 07/17/20) also had taken PCN but developed rash Home Medication List Reviewed: Yes YGY-Lqeaby-Dkowst Hx Patient Social History Marital Status: Smoking Status: Current Everyday Smoker Type Used: Cigarettes Recent Hopitalizations: No Alcohol Use?: No Substance type: Marijuana Past Medical History Discussed below Family Medical History Significant Family History: No Pertinent Family Hx Review of Systems-General Review of Systems Constitutional: no symptoms reported, see HPI, malaise EENTM: see HPI, no symptoms reported Respiratory: see HPI, short of breath Cardiovascular: see HPI, chest pain Gastrointestinal: no symptoms reported, see HPI Genitourinary: no symptoms reported, see HPI Musculoskeletal: see HPI, back pain Skin: no symptoms reported, see HPI Psychiatric/Neurological: No Symptoms Reported, See HPI Reviewed Test Results Reviewed Test Results Lab Labs are pending Physical Exam Physical Exam Vital Signs Vital Signs - First Documented 05/08/23 16:55 Pulse 105 Resp 31 B/P (MAP) 174/128 (143) Pulse Ox 98 Capillary Refill : Height, Weight, BMI Height: 6'1.00" Weight: 240lbs. oz. 108.970224qk; 38.00 BMI Method:Stated General Appearance: No Apparent Distress, WD/WN Eyes: Bilateral Eye Normal Inspection, Bilateral Eye PERRL, Bilateral Eye EOMI HEENT: PERRL/EOMI, TMs Normal, Normal ENT Inspection, Pharynx Normal, Moist Mucous Membranes Neck: Full Range of Motion, Normal Inspection, Non Tender, Supple, Carotid Bruit Respiratory: Chest Non Tender, Normal Breath Sounds, No Accessory Muscle Use, No Respiratory Distress Cardiovascular: Regular Rate, Rhythm, No Edema, No Gallop, No JVD, No Murmur, Normal Peripheral Pulses Gastrointestinal: Normal Bowel Sounds, No Organomegaly, No Pulsatile Mass, Non Tender, Soft Back: Normal Inspection, No CVA Tenderness, No Vertebral Tenderness Extremity: Normal Capillary Refill, Normal Inspection, Normal Range of Motion, Non Tender, No Calf Tenderness, No Pedal Edema Neurologic/Psychiatric: Alert, Oriented x3, No Motor/Sensory Deficits, Normal Mood/Affect Skin: Normal Color, Warm/Dry Lymphatic: No Adenopathy A/P-Cardiology Admission Diagnosis Acute ST elevation myocardial infarction in the inferior wall Coronary artery disease Hypertension Tobaccoism Assessment/Plan Acute ST elevation myocardial infarction involving the inferior wall. Patient is having active chest pain Given aspirin and Brilinta and heparin We will proceed with emergency cardiac catheterization, patient might not tolerate long-term anticoagulation but he is currently unstable. Renal cell carcinoma with mets to the spine. Degenerative joint disease, patient is unable to lay down on his back. Severe hypotension, secondary to pain Coronary artery disease, reporting that he had a heart attack in his 30s. No recent follow-up Hyperlipidemia Obesity, BMI 38 Tobaccoism, educated on smoking cessation Clinical Quality Measures AMI/AHF: ASA po Prior to arrival: Yes CHARLEEN HAQ MD May 08, 2023 17:11
[2023-05-08] MEDS ORDERED: NITRO DRIP 25000 MCG/D5W 250 ML IV ONE (17:12)
--- NOTE | 2023-05-08 17:12 | Cardiac Procedure Note-CS/ASA ---
Pre-Procedure Note Pre-Op Procedure Note Date of Available H&P: May 08, 2023 Date H&P Reviewed: May 08, 2023 Time H&P Reviewed: 17:11 History & Physical: H&P Reviewed, Patient Examed, No changes noted Pre-Operative Diagnosis: CAD Moderate Sedation PreProcedure Time 17:11 ASA Score 3 Airway Lungs Heart ASA score ASA 1: a normal healthy patient ASA 2: a patient with a mild systemic disease (mid diabetes, controlled hypertension, obesity ASA 3: a patient with a severe systemic disease that limits activity (angina, COPD, prior Myocardial infarction) ASA 4: a patient with an incapacitating disease that is a constant threat to life (CHF, renal failure) ASA 5: a moribund patient not expected to survive 24 hrs. (ruptured aneurysm) ASA 6: a declared brain- patient whose organs are being harvested. For emergent operations, add the letter E after the classification Mallampati Classification Grade 3 Sedation Plan Analgesia, Amnesia, Plan communicated to team members, Discussed options with patient/fam, Discussed risks with patient/fam The patient is an appropriate candidate to undergo the planned procedure, sedation, and anesthesia. The patient immediately re-assessed prior to indication. CHARLEEN HAQ MD May 08, 2023 17:11
[2023-05-08 17:18] LABS: ALBUMIN 4.5 GM/DL (3.2-4.5)
[2023-05-08 17:19] LABS: BASOPHILS # (AUTO) 0.1 10^3/uL (0.0-0.1); BASOPHILS % (AUTO) 0 % (0-10); CALCIUM 10.1 MG/DL (8.5-10.1); EOSINOPHILS # (AUTO) 0.6 10^3/uL (0.0-0.3); EOSINOPHILS % (AUTO) 5 % (0-10); HEMATOCRIT 48 % (40-54); HEMOGLOBIN 15.8 g/dL (13.3-17.7); LYMPHOCYTES % (AUTO) 28 % (12-44); MEAN CORPUSCULAR HEMOGLOBIN 32 pg (25-34); MEAN CORPUSCULAR HGB CONC 33 g/dL (32-36); MEAN CORPUSCULAR VOLUME 98 fL (80-99); MEAN PLATELET VOLUME 10.8 fL (9.0-12.2); MONOCYTES # (AUTO) 1.2 10^3/uL (0.0-1.0); MONOCYTES % (AUTO) 9 % (0-12); NEUTROPHILS # (AUTO) 8.1 10^3/uL (1.8-7.8); NEUTROPHILS % (AUTO) 58 % (42-75); PLATELET COUNT 264 10^3/uL (130-400)
[2023-05-08 17:21] LABS: TOTAL PROTEIN 8.2 GM/DL (6.4-8.2)
[2023-05-08 17:22] LABS: INR 0.9 (0.8-1.4); PROTHROMBIN TIME PATIENT 12.6 SEC (12.2-14.7)
[2023-05-08 17:23] LABS: BILIRUBIN,TOTAL 0.6 MG/DL (0.1-1.0)
[2023-05-08 17:24] LABS: CREATININE SERUM 1.38 MG/DL (0.60-1.30)
[2023-05-08 17:27] LABS: MAGNESIUM 2.1 MG/DL (1.6-2.4)
[2023-05-08] MEDS ORDERED: morphine INJ 4 MG/ML 1 ML (VIAL/SYRINGE) ONE (17:33)
[2023-05-08] MEDS ORDERED: EPTIFIBATIDE BOLUS 20 ML IV ONE (17:55)
[2023-05-08] MEDS ORDERED: EPTIFIBATIDE DRIP 100 ML IV ONE (17:55)
[2023-05-08 18:15] LABS: EOSINOPHILS % (MANUAL) 6 %; LYMPHOCYTES % (MANUAL) 18 %; MONOCYTES % (MANUAL) 10 %; NEUTROPHILS % (MANUAL) 60 %; REACTIVE LYMPHOCYTES 6 %
--- NOTE | 2023-05-08 18:15 | Anesthesia-Procedure Note ---
Procedures/Interventions Procedure Start/Stop/Diagnosis Date of Procedure: May 08, 2023 Start Time: 17:53 Referring Physician: Blanca Preprocedural Diagnosis: NSTEMI Brief History NSTEMI to rn labor and delivery, desaturating with sedation given for heart cath procedure. Request intubation by portable machine sander. Stop Time: 18:07 Intubation RSI: Yes 100% pre-Ox, [id number]: Yes Intubation Method: orotracheal Videoscope used: Yes (glidescope 3 with rigid stylet ) Grade View: 1 Medications: Propofol (80mg), Rocuronium (post intubation for remainder or procedure and transport to ICU ), Succinylcholine (100mg) Mask Ventilation: positive Positive End Tide CO2: Yes Breath Sounds after Intubation: bilateral-equal ETT Securred @ (cm): 23 Intubated with ease: Yes Intubation Complications: no complications Care turned over to: RT @ beside, and rn labor and delivery staff. ROLAN DURÁN CRNA May 08, 2023 18:14
[2023-05-08 18:16] LABS: RBC MORPH NORMAL
[2023-05-08] MEDS ORDERED: PATIENT MAY USE OWN MEDS, ALL PO SCH (18:30)
--- NOTE | 2023-05-08 18:33 | Cardiac Cath Report ---
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 Admitted with acute ST elevation in the inferior wall. Emergency cardiac catheterization was advised. After explaining the procedure to the patient, all pros and cons were explained, all questions were answered. The patient signed the consent and then he was placed in the cardiac catheterization laboratory. Groin and wrist were prepped. 6 Bangladeshi sheath was placed in the right radial artery. I used a [place] catheter and engaged the left coronary system and angiogram was done. Was unable to engage the right coronary system, exchange wire was used and I used AL-1 and engaged the right coronary artery and angiogram was done. Patient was agitated, unable to lay down due to his back pain, continue to move. I called anesthesia and decided to proceed with sedation and intubation and access the groin. I was unable to engage the left system with the guide. 6 Bangladeshi sheath was placed in the right femoral artery and I was successful in engaging the left main artery with EBU 4 guide. BMW wire was advanced through the left main to the circumflex artery that was totally occluded. Cross the lesion. Then proceeded with balloon angioplasty to the proximal and mid circumflex artery with 3 x 20 balloon and reestablishment of flow. There was distally slow flow due to distal embolization. Door to reestablishment of flow was 55 minutes Patient has a lesion in the distal left main and has residual lesion in the circumflex artery, I decided to stop at this point due to the fact that patient will need a tertiary care center with intervention on the left main with balloon angioplasty or bypass surgery. At the end of the procedure the sheath was removed. Closure device deployed to the groin and wrist band to the radial access site FINDINGS: Hemodynamics LV 196/37, end-diastolic pressure of 37 Aorta 166/130 with a mean of 110 ANATOMY: Left Main has 80% distal lesion Left Anterior Descending is tortuous artery with nonobstructive disease Left Circumflex is dominant artery with total occlusion in the midportion proximally there is 80% stenosis successful balloon angioplasty to the proximal and mid circumflex artery, slow flow distally due to distal embolization Right Coronary Artery is a large dominant artery with no obstructive disease LV Gram was not done, pressure was measured PERCUTANEOUS INTERVENTION: Pre stenosis 100% Post Stenosis 10% Pre RICO flow 0 Post RICO flow 2 Dominance codominant system of the right coronary artery and circumflex artery CONCLUSION: Acute inferior wall ST elevation myocardial infarction with total occlusion of the dominant circumflex artery successful balloon angioplasty with reestablishment of flow. There was distal embolization in the circumflex artery with RICO II flow 80% distal left main coronary artery stenosis Atrial fibrillation with rapid ventricular response Hypertensive emergency DISCUSSION AND RECOMMENDATION: Patient has metastatic renal cell carcinoma. He has a distal left main coronary artery stenosis and left circumflex artery I reestablished the flow in the circumflex artery and he was started on Integrilin drip in addition to amiodarone drip. Adding Cardizem drip, he received 8000 units of heparin. I will continue on heparin drip. I will arrange for transfer to a tertiary care center for evaluation of the left main and optimizing his treatment prior to his renal cell carcinoma surgery Patient is currently intubated and sedated Anesthesia Type: Conscious Sedation Estimated blood loss (mL): 25 ml Contrast Amount: 108 ml Total Radiation Dose: 1966 mGy Post-Procedure Diagnosis Post-operative diagnosis: Acute ST elevation myocardial infarction in the inferior wall Coronary artery disease Hypertensive emergency Atrial fibrillation Metastatic renal cell carcinoma CHARLEEN HAQ MD May 08, 2023 18:33
[2023-05-08] MEDS ORDERED: dilTIAZem INJ 25 MG/5 ML VIAL ONE (18:36)
[2023-05-08] MEDS ORDERED: dilTIAZem DRIP PRE-MIX 125 ML IV ONE (18:38)
[2023-05-08] MEDS ORDERED: HEParin 1000 UNIT/ML (10ML VIAL) FOR BOLUS IV PRN (18:45)
[2023-05-08] MEDS ORDERED: HEParin DRIP 25000 UNIT/500ML 500 ML IV SCH (18:45)
--- NOTE | 2023-05-08 18:47 | Cardioversion ---
Cardioversion PROCEDURE PHYSICIAN: Charleen Rios DATE OF PROCEDURE: 05/08/23 DIRECT EXTERNAL ELECTRICAL CARDIOVERSION: Indications: Atrial Fibrillation with rapid ventricular rate Preoperative diagnoses: Atrial Fibrillation with rapid ventricular rate Postoperative diagnosis: Sinus rhythm, Successful Electrical Cardioversion History: Anesthesia: By Anesthesia services Complications: None Specimen: None Contrast: 0 Flouroscopy: none Procedure Details: Patient was on the cardiac catheterization table, went to atrial fibrillation with rapid ventricular response. Hypertensive. Patient was intubated and sedated. I delivered 200 J of synchronized cardioversion and was successful in terminating atrial fibrillation. Within few minutes patient return back to atrial fibrillation with rapid ventricular response. I delivered a second shock with 150 J and it was successful in terminating atrial fibrillation and he was started on amiodarone drips Conclusions: 2 attempts of cardioversion with 200 J and 150 J both were successful in terminating atrial fibrillation but patient could not maintain sinus rhythm CHARLEEN RIOS MD May 08, 2023 18:47
[2023-05-08 19:25] VITALS: BP 145/100
[2023-05-08] MEDS ORDERED: fentaNYL DRIP PRE-MIX 250 ML IV ONE (19:26)
--- NOTE | 2023-05-08 19:35 | Tele-ICU Progress Note ---
Subjective Date Seen by a Provider: May 08, 2023 Subjective/Events-last exam This virtual visit was conducted using real time audio/video. Thank you for asking us to see this patient for respiratory insufficiency due to STEMI: inf wall. Recent events: On vent s/p cath w PCI of CX. Requires CABG for L main 80% stenosis. Cardioverted x 2 for afib w RVR. PMH: Met renal CA., HL. SH: smoking history: current PE: VSS. Obese, sedated. O2 sat 99% on AC 20/500/80%/+5. Currently NSR. HEENT: No obvious masses, adenopathy or JVD. Chest: clear to auscultation. CV: RRR S1 S2 No murmur or added sounds. Abd: Non-tender. Bowel sounds Y. : Unremarkable. [place] Y. ORCHID HAND/psychiatric: Grossly intact. No obvious focal findings. Extremities: No edema. Capillary refill < 3 seconds. Skin: unremarkable. Results: Elevated WCC 14.0, Creat 1.38, BG 173, Trop 0.071. CXR: not done yet. Available chart/ vitals / labs / images reviewed. Video assessment done using teleICU camera, rest of exam as per RN. A/P: Respiratory insufficiency: Continue present management with vent, Propofol. Will add fentanyl Critical Care: critically ill patient. Cont. Card., amiod., PPI, Brilinta, Hep. Discussed with RN Christiana. Asked RN to reach out to eICU if any questions or concerns later. Time spent with patient/coordination of care with other health professionals (mins): 25. Sepsis Event Evaluation Height, Weight, BMI Height: 6'1.00" Weight: 240lbs. oz. 108.256083ne; 38.00 BMI Method:Stated Exam Exam Patient acknowledged, consented, and participated in this virtual visit which was conducted using real time audio/video Vital Signs Date Time Temp Pulse Resp B/P (MAP) Pulse Ox O2 Delivery O2 Flow Rate FiO2 05/08/23 17:15 37.5 110 17 196/119 100 05/08/23 16:55 37.5 105 31 174/128 (143) 98 Height & Weight Height: 6'1.00" Weight: 240lbs. oz. 108.719964oi; 38.00 BMI Method:Stated General Appearance: WD/WN, Obese, Severe Distress HEENT: PERRL/EOMI, Normal ENT Inspection Neck: Normal Inspection; No JVD Respiratory: Lungs Clear, Normal Breath Sounds, No Accessory Muscle Use Cardiovascular: Regular Rate, Rhythm, No Edema, No Murmur Extremity: Normal Inspection, No Pedal Edema Neurologic/Psychiatric: Alert, Oriented x3, No Motor/Sensory Deficits, Normal Mood/Affect Skin: Normal Color, Warm/Dry Lymphatic: No Adenopathy Results Lab Laboratory Tests 05/08/23 16:55 Assessment/Plan Assessment/Plan See free text. Critical Care: Ventilator Management SHANEKA GALVEZ MD May 08, 2023 19:35
--- NOTE | 2023-05-08 20:06 | Diagnostic Imaging Report ---
CLINICAL INDICATION: ET tube and orogastric tube placement. EXAM: Portable chest x-ray upright view. COMPARISON: Chest x-ray dated 03/11/2023. FINDINGS: Lungs/pleura: Lungs are clear. There is no pneumothorax. There is no pleural effusion. There is interval placement of ET tube in good position with tip roughly at the T3 vertebral body level. There is mild cardiomegaly with mild pulmonary vascular congestion. There is no pleural effusion or pneumothorax. Orogastric feeding tube is seen with distal portion incompletely imaged, but is seen overlying the expected region of the gastric antrum. There is no significant bony abnormality. IMPRESSION: 1: Interval placement of ET tube and feeding tube in good position as visualized. 2: There is cardiomegaly with mild pulmonary vascular congestion. Dictated by: Dictated on workstation # [id number]
[2023-05-08 20:13] LABS: HEMATOCRIT 44 % (40-54); HEMOGLOBIN 14.5 g/dL (13.3-17.7); MEAN CORPUSCULAR HEMOGLOBIN 33 pg (25-34); MEAN CORPUSCULAR HGB CONC 33 g/dL (32-36); MEAN CORPUSCULAR VOLUME 98 fL (80-99); PLATELET COUNT 237 10^3/uL (130-400); WHITE BLOOD COUNT 15.9 10^3/uL (4.3-11.0)
[2023-05-08] MEDS: fentaNYL DRIP PRE-MIX 250 ML IV SCH (20:32)
[2023-05-08] MEDS: EPTIFIBATIDE DRIP 100 ML IV SCH (20:33)
[2023-05-08] MEDS: NS IV 1000 ML 1,000 ML IV SCH ×2 (20:33→22:32)
[2023-05-08] MEDS: AMIODARONE FOR DRIP 450 MG in NORMAL SALINE (EXCEL) 250 ML 250 ML IV SCH (20:35)
[2023-05-08] MEDS: PANTOPRAZOLE INJECTION 40 MG VIAL IV SCH (20:35)
[2023-05-08] MEDS ORDERED: dilTIAZem DRIP PRE-MIX 125 ML IV SCH (20:45)
[2023-05-08 22:00] LABS: ABG BASE EXCESS -1.3 MMOL/L (-2.5-2.5); ABG OXYGEN SATURATION 100 % (94-100); ABG PCO2 50 MMHG (35-45); ABG PO2 162 MMHG (79-93); ABG TCO2 25.7 MMOL/L (21.0-31.0)
[2023-05-08 22:02] LABS: ALLENS TEST YES-POS
[2023-05-08 22:03] LABS: INSPIRED O2 80%; VENTILATOR NO
[2023-05-09 00:19] VITALS: BP 93/64
[2023-05-09] MEDS: AMIODARONE FOR DRIP 450 MG in NORMAL SALINE (EXCEL) 250 ML 250 ML IV SCH (01:34)
[2023-05-09] MEDS: EPTIFIBATIDE DRIP 100 ML IV SCH ×2 (01:38→04:30)
[2023-05-09 05:01] LABS: HEMATOCRIT 41 % (40-54); HEMOGLOBIN 13.5 g/dL (13.3-17.7); MEAN CORPUSCULAR HEMOGLOBIN 32 pg (25-34); MEAN CORPUSCULAR HGB CONC 33 g/dL (32-36); MEAN CORPUSCULAR VOLUME 98 fL (80-99); MEAN PLATELET VOLUME 11.2 fL (9.0-12.2); PLATELET COUNT 223 10^3/uL (130-400); WHITE BLOOD COUNT 12.6 10^3/uL (4.3-11.0)
[2023-05-09 05:07] LABS: POTASSIUM 4.1 MMOL/L (3.6-5.0)
[2023-05-09 05:08] LABS: CALCIUM 8.8 MG/DL (8.5-10.1)
[2023-05-09 05:10] LABS: ABG BASE EXCESS -0.6 MMOL/L (-2.5-2.5); ABG OXYGEN SATURATION 98 % (94-100); ABG PCO2 47 MMHG (35-45); ABG PO2 95 MMHG (79-93); ABG TCO2 25.7 MMOL/L (21.0-31.0)
[2023-05-09 05:13] LABS: CREATININE SERUM 1.08 MG/DL (0.60-1.30); PHOSPHORUS 4.2 MG/DL (2.3-4.7)
[2023-05-09 05:16] LABS: ABG PH 7.34 (7.37-7.43); ALLENS TEST YES-POS; INSPIRED O2 45%; VENTILATOR YES
[2023-05-09 05:16] LABS: MAGNESIUM 1.8 MG/DL (1.6-2.4)
[2023-05-09 05:17] LABS: PATIENT TEMP 37.6
[2023-05-09] MEDS ORDERED: POTASSIUM CHLORIDE 20 MEQ TABLET PO SCH ×2 (06:00→10:15)
[2023-05-09] MEDS ORDERED: MAGNESIUM 1 GM/100 ML IVPB 100 ML IV SCH ×2 (06:00→10:15)
[2023-05-09] MEDS ORDERED: POTASSIUM CL 10MEQ/50ML IVPB 50 ML IV SCH ×2 (06:00→10:15)
[2023-05-09] MEDS: MAGNESIUM 1 GM/100 ML IVPB 100 ML IV SCH (06:10)
[2023-05-09 06:28] VITALS: BP 106/70
[2023-05-09] MEDS: PANTOPRAZOLE INJECTION 40 MG VIAL IV SCH (08:29)
[2023-05-09] MEDS: NS IV 1000 ML 1,000 ML IV SCH (08:29)
[2023-05-09] MEDS: fentaNYL DRIP PRE-MIX 250 ML IV SCH (09:07)
--- NOTE | 2023-05-09 09:12 | Cardiology Discharge Summary ---
Discharge Summary Hospital Course Hospital Course Date of Admission: May 08, 2023 at 19:00 Admission Diagnosis : Family Physician/Provider: Reader/[facility] Date of Discharge: 05/09/23 Discharge Diagnosis: [Acute ST elevation myocardial infarction Coronary artery disease Congestive heart failure, acute left ventricular systolic dysfunction, ischemic cardiomyopathy Hypertensive emergency] Hospital Course: [ Acute ST elevation myocardial infarction involving the inferior wall. Patient is having active chest pain Given aspirin and Brilinta and heparin Emergency cardiac catheterization was carried out on May 08, 2023 with total occlusion of the circumflex artery successful balloon angioplasty and scientologist of the flow, there was a distal embolization with RICO II flow post intervention. Coronary artery disease, Cardiac catheterization done on May 08, 2023 with heavily calcified lesion in the distal left main up to 70% stenosis, total occlusion of the mid circumflex artery with severe stenosis proximal circumflex artery successful balloon angioplasty to the proximal and mid circumflex artery with reestablishment of the flow with door to balloon time 55 minutes, nonobstructive disease in the LAD and right coronary artery I discussed with [facility] the management plan, patient has questionable metastatic renal cell carcinoma. Will require IVUS to the left main and decision regarding proceeding with a stenting of the circumflex and left main or bypass surgery. Arrangement to transfer the patient to are made Congestive heart failure, acute left ventricular systolic dysfunction, ischemic cardiomyopathy Patient is currently intubated, will need to start on beta-blockers and ARB once clinically more stable. Echocardiogram showed dilated left ventricle with ejection fraction 30% diffuse left ventricular hypokinesia with akinesia of the inferior wall. Paroxysmal atrial fibrillation, had atrial fibrillation during the cardiac catheterization with rapid ventricular response Received 2 synchronized cardioversion and started on amiodarone drip, converted to sinus rhythm on amiodarone drip and Cardizem drip I will stop the Cardizem drip and continue to monitor Severe back pain, patient was unable to lay down, was significantly uncomfortable, I decided to proceed with sedation and intubation and did the cardioversion and finished a cardiac catheterization Patient will be weaned off ventilator once at Renal cell carcinoma with mets to the spine. Degenerative joint disease, patient is unable to lay down on his back. Severe hypertension, hypertensive emergency Currently blood pressure is better while sedated Hyperlipidemia, starting Lipitor 80 mg daily Obesity, BMI 38 Tobaccoism, educated on smoking cessation] Labs and Pending Lab Test: Laboratory Tests 05/08/23 16:55: White Blood Count 14.0H, Red Blood Count 4.91, Hemoglobin 15.8, Hematocrit 48, Mean Corpuscular Volume 98, Mean Corpuscular Hemoglobin 32, Mean Corpuscular Hemoglobin Concent 33, Red Cell Distribution Width 13.4, Platelet Count 264, Mean Platelet Volume 10.8, Immature Granulocyte % (Auto) 1, Neutrophils (%) (Auto) 58, Lymphocytes (%) (Auto) 28, Monocytes (%) (Auto) 9, Eosinophils (%) (Auto) 5, Basophils (%) (Auto) 0, Neutrophils # (Auto) 8.1H, Lymphocytes # (Auto) 4.0, Monocytes # (Auto) 1.2H, Eosinophils # (Auto) 0.6H, Basophils # (Auto) 0.1, Immature Granulocyte # (Auto) 0.1, Neutrophils % (Manual) 60, Lymphocytes % (Manual) 18, Monocytes % (Manual) 10, Eosinophils % (Manual) 6, Reactive Lymphocytes 6, Blood Morphology Comment NORMAL, Prothrombin Time 12.6, INR Comment 0.9, Activated Partial Thromboplast Time 29, Sodium Level 141, Potassium Level 4.0, Chloride Level 103, Carbon Dioxide Level 24, Anion Gap 14, Blood Urea Nitrogen 15, Creatinine 1.38H, Estimat Glomerular Filtration Rate 61, BUN/Creatinine Ratio 11, Glucose Level 173H, Calcium Level 10.1, Corrected Calcium 9.7, Magnesium Level 2.1, Total Bilirubin 0.6, Aspartate Amino Transf (AST/SGOT) 18, Alanine Aminotransferase (ALT/SGPT) 29, Alkaline Phosphatase 89, Myoglobin 137.8H, Troponin I 0.071H, Total Protein 8.2, Albumin 4.5 05/08/23 20:05: White Blood Count 15.9H, Red Blood Count 4.43, Hemoglobin 14.5, Hematocrit 44, Mean Corpuscular Volume 98, Mean Corpuscular Hemoglobin 33, Mean Corpuscular Hemoglobin Concent 33, Red Cell Distribution Width 13.3, Platelet Count 237, Me an Platelet Volume 11.0, Troponin I 0.792*H 05/08/23 21:44: Blood Gas Puncture Site LEFT RADIAL, Blood Gas Patient Temperature UNKNOWN, Arterial Blood pH 7.30*L, Arterial Blood Partial Pressure CO2 50H, Arterial Blood Partial Pressure O2 162H, Arterial Blood HCO3 24, Arterial Blood Total CO2 25.7, Arterial Blood Oxygen Saturation 100, Arterial Blood Base Excess -1.3, Дмитрий Test YES-POS, Blood Gas Ventilator Setting NO, Blood Gas Inspired Oxygen 80% 05/09/23 00:05: Glucometer 206H 05/09/23 00:45: Activated Partial Thromboplast Time 42H 05/09/23 04:23: White Blood Count 12.6H, Red Blood Count 4.20L, Hemoglobin 13.5, Hematocrit 41, Mean Corpuscular Volume 98, Mean Corpuscular Hemoglobin 32, Mean Corpuscular Hemoglobin Concent 33, Red Cell Distribution Width 13.6, Platelet Count 223, Mean Platelet Volume 11.2, Sodium Level 138, Potassium Level 4.1, Chloride Level 105, Carbon Dioxide Level 21, Anion Gap 12, Blood Urea Nitrogen 17, Creatinine 1.08, Estimat Glomerular Filtration Rate 82, BUN/Creatinine Ratio 16, Glucose Level 186H, Calcium Level 8.8, Phosphorus Level 4.2, Magnesium Level 1.8, Troponin I 21.606*H, Triglycerides Level 237H, Cholesterol Level 114, LDL Cholesterol Direct 78, VLDL Cholesterol 47H, HDL Cholesterol 24L 05/09/23 05:04: Blood Gas Puncture Site LEFT RADIAL, Blood Gas Patient Temperature 37.6, Arterial Blood pH 7.34*L, Arterial Blood Partial Pressure CO2 47H, Arterial Blood Partial Pressure O2 95H, Arterial Blood HCO3 24, Arterial Blood Total CO2 25.7, Arterial Blood Oxygen Saturation 98, Arterial Blood Base Excess -0.6, Дмитрий Test YES-POS, Blood Gas Ventilator Setting YES, Blood Gas Inspired Oxygen 45% 05/09/23 07:21: Activated Partial Thromboplast Time 105H Home Meds Active Prednisone 20 Mg Tab 40 Mg PO DAILY Hydrocodone-Acetamin 7.5-325 (Hydrocodone/Acetaminophen) 7.5 Mg-325 Mg Tablet 1 Each PO Q6H PRN 7 Days Cefdinir 300 Mg Capsule 300 Mg PO BID Tramadol HCl 50 Mg Tablet 50 Mg PO Q4H Zanaflex (Tizanidine HCl) 4 Mg Capsule 4 Mg PO TID Oxycodone-Acetaminophen 5-325 (Oxycodone HCl/Acetaminophen) 5 Mg-325 Mg Tablet 1 Each PO Q4H PRN MDD 6 Neurontin (Gabapentin) 300 Mg Capsule 300 Mg PO Q8H PRN Percocet 5-325 mg Tablet (Oxycodone HCl/Acetaminophen) 1 Each Tablet 1 Tab PO Q4H PRN MDD 6 TABS Cyclobenzaprine HCl 10 Mg Tablet 10 Mg PO Q6H 5 Days Ketorolac Tromethamine 10 Mg Tablet 10 Mg PO TID 3 Days Naproxen 500 Mg Tablet.dr 500 Mg PO BID Cyclobenzaprine HCl 10 Mg Tablet 10 Mg PO Q8H PRN Tramadol HCl 50 Mg Tablet 50 Mg PO Q6H PRN Meloxicam 15 Mg Tablet 15 Mg PO DAILY Mupirocin 2 % Oint...g. 22 Gm TP BID Cefuroxime (Cefuroxime Axetil) 500 Mg Tablet 500 Mg PO BID Bactrim Ds Tablet (Sulfamethoxazole/Trimethoprim) 1 Each Tablet 1 Each PO TID Cephalexin 500 Mg Tablet 500 Mg PO QID Cleocin HCl (Clindamycin HCl) 300 Mg Capsule 300 Mg PO TID 10 Days Percocet 5-325 mg Tablet (Oxycodone HCl/Acetaminophen) 1 Each Tablet 1-2 Tab PO Q4H PRN MDD 6 7 Days Doxycycline Hyclate 100 Mg Tablet 100 Mg PO BID 10 Days Mupirocin (Mupirocin Calcium) 15 Gm Cream..g. 1 Applic TP BID 10 Days Bactrim Ds Tablet (Sulfamethoxazole/Trimethoprim) 1 Each Tablet 1 Each PO BID 10 Days Reported Metformin HCl 1,000 Mg Tablet 1,000 Mg PO BID Lisinopril 10 Mg Tablet 10 Mg PO DAILY Assessment/Pt DC Instructions Acute ST elevation myocardial infarction Coronary artery disease Hypertensive emergency Atrial fibrillation Discharge Diet: No Restrictions Discharge Physical Examination Allergies: Coded Allergies: morphine (Verified Allergy, Severe, TROUBLE BREATHING, 02/18/23) Penicillins (Verified Allergy, Mild, seizures, 07/17/20) amoxicillin (Verified Allergy, Mild, 07/17/20) clavulanic acid (Verified Allergy, Mild, 07/17/20) shellfish derived (Verified Allergy, Unknown, 07/17/20) codeine (Verified Adverse Reaction, Unknown, unknown, 07/17/20) also had taken PCN but developed rash General Appearance: No Apparent Distress, WD/WN HEENT: PERRL/EOMI, TMs Normal, Normal ENT Inspection, Pharynx Normal Respiratory: Chest Non Tender, Lungs Clear Cardiovascular: Regular Rate, Rhythm, No Edema Gastrointestinal: Normal Bowel Sounds, No Organomegaly Extremity: Normal Capillary Refill, Normal Inspection Skin: Normal Color, Warm/Dry Neurologic/Psychiatric: Other (Sedated and intubated) Clinical Quality Measures Admission Status Admission Status: Inpatient Order (span 2 midnights) Reason for Inpatient Admission: Acute ST elevation myocardial infarction AMI/AHF: ASA po Prior to arrival: Yes CHARLEEN HAQ MD May 09, 2023 09:11
[2023-05-09] MEDS ORDERED: NS IV 500 ML 500 ML IV PRN ×2 (10:15)
[2023-05-09 10:52] VITALS: BP 102/70
[2023-05-09] MEDS ORDERED: ROCURONIUM 50 MG/5 ML VIAL IV ONE (11:06)
[2023-05-09] MEDS ORDERED: SUCCINYLCHOLINE INJ 20 MG/1 ML 10 ML VIAL INJ ONE (11:06)
[2023-05-09] MEDS ORDERED: proPOfol INJECTION 200 MG/20 ML VIAL IV ONE (11:06)
[2023-05-09] MEDS ORDERED: SACUBITRIL/VALSARTAN 24/26 MG TABLET PO SCH (21:00)
[2023-05-09] MEDS ORDERED: carvediloL 3.125 MG TABLET PO SCH (21:00)
== END 2023-05-09 11:07 | disposition short-term general hospital (02) | DRG 250 ==
LOC: ER 16:53 → EDUNIT# 16:53 → CATH 17:16 → ICU 19:00
PROVIDERS: ADMIT Internal Medicine Cardiovascular Disease; ATTEND Internal Medicine Cardiovascular Disease
PROC: 02703ZZ Dilation of Coronary Artery, One Artery, Percutaneous Approach (ICD-10-PCS; principal; 2023-05-08)
PROC: 5A2204Z Restoration of Cardiac Rhythm, Single (ICD-10-PCS; 2023-05-08)
PROC: 4A023N7 Measurement of Cardiac Sampling and Pressure, Left Heart, Percutaneous Approach (ICD-10-PCS; 2023-05-08)
PROC: B2111ZZ Fluoroscopy of Multiple Coronary Arteries using Low Osmolar Contrast (ICD-10-PCS; 2023-05-08)
DX: I21.21 ST elevation (STEMI) myocardial infarction involving left circumflex coronary artery (principal); I50.21 Acute systolic (congestive) heart failure; I16.1 Hypertensive emergency; C64.9 Malignant neoplasm of unspecified kidney, except renal pelvis; C79.51 Secondary malignant neoplasm of bone; Z68.41 Body mass index [BMI] 40.0-44.9, adult; I25.10 Atherosclerotic heart disease of native coronary artery without angina pectoris; I48.0 Paroxysmal atrial fibrillation; I11.0 Hypertensive heart disease with heart failure; I25.5 Ischemic cardiomyopathy; F17.210 Nicotine dependence, cigarettes, uncomplicated; G47.30 Sleep apnea, unspecified; E78.00 Pure hypercholesterolemia, unspecified; M48.02 Spinal stenosis, cervical region; M54.12 Radiculopathy, cervical region; M47.9 Spondylosis, unspecified; I95.89 Other hypotension; E11.9 Type 2 diabetes mellitus without complications; E66.9 Obesity, unspecified; Z88.1 Allergy status to other antibiotic agents; Z88.5 Allergy status to narcotic agent; Z88.0 Allergy status to penicillin; Z79.899 Other long term (current) drug therapy; Z79.84 Long term (current) use of oral hypoglycemic drugs; Z79.1 Long term (current) use of non-steroidal anti-inflammatories (NSAID); Z79.891 Long term (current) use of opiate analgesic; Z79.52 Long term (current) use of systemic steroids
CPT/HCPCS: 36415; 36600; 71045; 80048; 80053; 80061; 82805; 82947; 83735; 83874; 84100; 84484; 85007; 85027; 85610; 85730; 93005; 93041; 93306; 93458; 94002; 94003

== ENCOUNTER → 2023-05-28 | Outpatient (CLI) | payer OTHER ==
--- NOTE | 2023-05-29 09:17 | Diagnostic Imaging Report ---
PROCEDURE: US right lower extremity venous. TECHNIQUE: Multiple Real-time grayscale images were obtained over the right lower extremity in various projections. Additional spectral analysis and color Doppler duplex images were also obtained. INDICATION: Right lower extremity swelling. COMPARISON: 06/02/2014. FINDINGS: The right common femoral vein is patent as is the proximal greater saphenous vein. There is an eccentric very small nonocclusive thrombus along the wall of the proximal right femoral vein. The remainder of the femoral vein is patent. The popliteal vein is patent. Visible calf veins appear normal. There is a hypoechoic heterogeneous lesion in the right thigh in the subcutaneous fat which measures about 1.8 x 1.0 cm in the transverse dimension. This is not measured in the craniocaudal dimension but is greater than 6 cm in length. IMPRESSION: 1. Small eccentric nonocclusive thrombus, which is age indeterminate, in the proximal right femoral vein. 2. Subcutaneous hematoma in the medial right thigh. 3. The report was called and faxed to [facility] in the office of Dr. Jiang by [email or web address] AM on 05/29/2023. Dictated by: Dictated on workstation # [id number]
== END ==
LOC: RAD 13:23
PROVIDERS: ATTEND Internal Medicine Cardiovascular Disease
DX: S70.11XA Contusion of right thigh, initial encounter (principal); M79.89 Other specified soft tissue disorders

== ENCOUNTER 2023-07-07 14:47 | Emergency (ER) | payer OTHER ==
[~2023-07-07] VITALS: Ht 185 cm; Wt 113.4 kg
[2023-07-07] MEDS ORDERED: GABAPENTIN 300 MG CAPSULE PO ONE (15:45)
--- NOTE | 2023-07-07 15:57 | ED General ---
General Chief Complaint: Back Problems Stated Complaint: RIGHT ARM AND BACK PAIN Source of Information: Patient Exam Limitations: No Limitations Allergies and Home Medications Allergies Coded Allergies: morphine (Verified Allergy, Severe, TROUBLE BREATHING, 02/18/23) Penicillins (Verified Allergy, Mild, seizures, 07/17/20) amoxicillin (Verified Allergy, Mild, 07/17/20) clavulanic acid (Verified Allergy, Mild, 07/17/20) shellfish derived (Verified Allergy, Unknown, 07/17/20) codeine (Verified Adverse Reaction, Unknown, unknown, 07/17/20) also had taken PCN but developed rash Patient Home Medication List Cefdinir (Cefdinir) 300 Mg Capsule, 300 MG PO BID Prescribed by: CAROLINA MALONE on 03/11/23 1215 Cefuroxime Axetil (Cefuroxime) 500 Mg Tablet, 500 MG PO BID Prescribed by: ROSALINA ZURITA on 11/05/22 1013 Cephalexin (Cephalexin) 500 Mg Tablet, 500 MG PO QID Prescribed by: ESTRADA JOY on 06/29/21 0634 Clindamycin HCl (Cleocin HCl) 300 Mg Capsule, 300 MG PO TID Prescribed by: BERNARDO NÚÑEZ on 07/19/20 0936 Cyclobenzaprine HCl (Cyclobenzaprine HCl) 10 Mg Tablet, 10 MG PO Q8H PRN for SPASMS Prescribed by: ROSALINA ZURITA on 01/06/23 205 Cyclobenzaprine HCl (Cyclobenzaprine HCl) 10 Mg Tablet, 10 MG PO Q6H Prescribed by: TIA COOMBS MD on 02/15/23 0005 Doxycycline Hyclate (Doxycycline Hyclate) 100 Mg Tablet, 100 MG PO BID Prescribed by: BERNARDO NÚÑEZ on 07/19/20 0936 Gabapentin (Neurontin) 300 Mg Capsule, 300 MG PO Q8H PRN for PAIN BREAKTROUGH Prescribed by: ESTRADA JOY on 02/18/23 1743 Hydrocodone/Acetaminophen (Hydrocodone-Acetamin 7.5-325) 7.5 Mg-325 Mg Tablet, 1 EACH PO Q6H PRN for PAIN-MODERATE (5-7) Prescribed by: CAROLINA MALONE on 03/11/23 1216 Ketorolac Tromethamine (Ketorolac Tromethamine) 10 Mg Tablet, 10 MG PO TID Prescribed by: TIA COOMBS MD on 02/15/23 0005 Lisinopril (Lisinopril) 10 Mg Tablet, 10 MG PO DAILY, (Reported) Entered as Reported by: ROMAINE LYLE on 07/17/20 1139 Meloxicam (Meloxicam) 15 Mg Tablet, 15 MG PO DAILY Prescribed by: ROSALINA ZURITA on 11/05/22 1013 Metformin HCl (Metformin HCl) 1,000 Mg Tablet, 1,000 MG PO BID, (Reported) Entered as Reported by: ROMAINE LYLE on 07/17/20 1139 Mupirocin (Mupirocin) 2 % Oint...g., 22 GM TP BID Prescribed by: ROSALINA ZURITA on 11/05/22 1013 Mupirocin Calcium (Mupirocin) 15 Gm Cream..g., 1 APPLIC TP BID Prescribed by: BERNARDO NÚÑEZ on 07/19/20 0932 Naproxen (Naproxen) 500 Mg Tablet.dr, 500 MG PO BID Prescribed by: ROSALINA ZURITA on 01/06/232056 Oxycodone HCl/Acetaminophen (Percocet 5-325 mg Tablet) 1 Each Tablet, 1-2 TAB PO Q4H PRN for PAIN-MODERATE Prescribed by: BERNARDO NÚÑEZ on 07/19/20 0936 Oxycodone HCl/Acetaminophen (Percocet 5-325 mg Tablet) 1 Each Tablet, 1 TAB PO Q4H PRN for PAIN BREAKTROUGH Prescribed by: ESTRADA JOY on 02/18/23 1744 Oxycodone HCl/Acetaminophen (Oxycodone-Acetaminophen 5-325) 5 Mg-325 Mg Tablet, 1 EACH PO Q4H PRN for PAIN-SEVERE Prescribed by: ESMER BAIN on 03/05/23 1755 Prednisone (Prednisone) 20 Mg Tab, 40 MG PO DAILY Prescribed by: CAROLINA MALONE on 03/11/23 1215 Sulfamethoxazole/Trimethoprim (Bactrim Ds Tablet) 1 Each Tablet, 1 EACH PO BID Prescribed by: KRZYSZTOF JEFFERSON on 07/15/20 1239 Sulfamethoxazole/Trimethoprim (Bactrim Ds Tablet) 1 Each Tablet, 1 EACH PO TID Prescribed by: ESTRADA JOY on 06/29/21 0634 Tizanidine HCl (Zanaflex) 4 Mg Capsule, 4 MG PO TID Prescribed by: ROSALINA ZURITA on 03/09/232231 Tramadol HCl (Tramadol HCl) 50 Mg Tablet, 50 MG PO Q6H PRN for PAIN Prescribed by: ROSALINA ZURITA on 11/05/22 1013 Tramadol HCl (Tramadol HCl) 50 Mg Tablet, 50 MG PO Q4H Prescribed by: ROSALINA ZURITA on 03/09/232231 Past Ksuniim-Eganfw-Tkzmdb Hx Patient Social History Tobacco Use?: Yes Tobacco type used: Cigarettes Substance use?: No Alcohol Use?: No Pt feels they are or have been: No Immunizations Up To Date Influenza Vaccine Up-to-Date: No; Not Current First/Initial COVID19 Vaccinat: No Vaccine Second COVID19 Vaccination Praful: No Vaccine Third COVID19 Vaccination Date: No Vaccine Seasonal Allergies Seasonal Allergies: Yes Past Medical History Surgery/Hospitalization HX: HTN AND DM2, CHRONIC BACK PAIN, RENAL CELL CARCINOMA SURG.-NOSE, GALLBLADDER REMOVAL, BYPASS Surgeries: Yes (NOSE SURGERY, RECTAL ABCESS) Gallbladder Respiratory: Yes Sleep Apnea Currently Using CPAP: Yes Currently Using BIPAP: No Cardiac: Yes Heart Attack, High Cholesterol, Hypertension Neurological: No Reproductive Disorders: No Genitourinary: No Gastrointestinal: Yes Chronic Constipation Musculoskeletal: Yes (Cervical spinal stenosis with radiculopathy;[facility] NECK PAIN;[facility] SHOULER PAIN) Degenerate Disk Disease, Arthritis, Chronic Back Pain Endocrine: Yes (OBESITY) Diabetes, Non-Insulin dep HEENT: Yes (EPISTAXIS, NASAL ABSCESS; R MANDIBULAR FX 10/2022; POOR DENTITION) Cancer: No Psychosocial: Yes (HX OF POLYSUBSTANCE ABUSE) Integumentary: Yes (ABSCESSES) Blood Disorders: No Adverse Reaction/Blood Tranf: No (NA) Family Medical History No Pertinent Family Hx PAST SURGICAL HISTORY: -CHOLECYSTECTOMY -SURGERY FOR NASAL ABSCESS -SURGERY FOR POSTERIOR EPISTAXIS -SURGERY FOR RECTAL ABSCESS PT HAD RIGHT MANDIBULAR FX DX 11/05/22--NEVER FOLLOWED UP WITH ANYONE Physical Exam Vital Signs Capillary Refill : Height, Weight, BMI Height: 6'1.00" Weight: 240lbs. oz. [id number]; 38.00 BMI Method:Stated Procedures/Interventions Date of ETT Placement: May 08, 2023 Progress/Results/Core Measures Suspected Sepsis SIRS Temperature: Pulse: Respiratory Rate: Blood Pressure / Mean: Results/Orders My Orders Orders - ESTRADA PUGA MD Gabapentin Capsule (Gabapentin Capsule) (07/07/23 15:45) Fentanyl Injection (Fentanyl Injection (07/07/23 16:00) Vital Signs/I&O Capillary Refill : Departure Impression Primary Impression: Cervical spinal stenosis Additional Impressions: Right arm pain Right arm weakness Renal cell carcinoma Qualified Codes: C64.1 - Malignant neoplasm of right kidney, except renal pelvis Disposition: HOME, SELF-CARE Condition: Stable Departure-Patient Inst. Decision time for Depature: 15:54 Ref[place]: [facility] [place] Primary Care Physician Patient Instructions: Spinal stenosis Add. Discharge Instructions: Start prednisone as prescribed. You may take your first dose this evening. Tomorrow take your prednisone early in the day to avoid sleep disturbance. Take with food or milk to avoid stomach upset. It is very important that you watch your blood sugars closely while on prednisone. Steroids like prednisone have a tendency to elevate blood sugars. Eat a low sugar, low carbohydrate diet while taking prednisone. Use gabapentin (Neurontin) as your primary pain treatment for your neck and arm. Start with 1 capsule (300 mg) 2 or 3 times daily. If this is not sufficient after 2 days, you may increase to 2 capsules (total of 600 mg) 3 times a day. For pain not well-controlled by gabapentin, you may take Percocet as prescribed. Both of these medications may cause drowsiness, so use with caution. Do not drive, operate machinery, or make important decisions while on these medications. Ultimately, you need an MRI of your cervical spine and referral to a spine surgeon or neurosurgeon. This should be done as soon as possible. Delaying treatment too long could result in permanent nerve damage. MRI use with your atrial clip is conditional. Please have your doctor review the information on your atrial clip card when scheduling the MRI. Return to the emergency room if you have worsening symptoms despite following these instructions, especially if you lose control of your arm, develop symptoms in your legs, have trouble controlling bowel or bladder function, or develop numbness in your groin. Please call you with the doctors offices soon as possible to schedule a follow- up appointment. Stress that the ER doctor instructed you to have prompt follow- up when you make the appointment. All discharge instructions reviewed with patient and/or family. Voiced understanding. Scripts Prednisone (Prednisone) 20 Mg Tab 40 MG PO DAILY, #10 TAB 0 Refills Prov: ESTRADA PUGA MD 07/07/23 Oxycodone HCl/Acetaminophen (Percocet 5-325 mg Tablet) 1 Each Tablet 1 TAB PO Q4H PRN for PAIN BREAKTROUGH MDD 6 TABS, #10 TAB Prov: ESTRADA PUGA MD 07/07/23 Gabapentin (Neurontin) 300 Mg Capsule 300 MG PO TID PRN for PAIN-MODERATE TO SEVERE, #20 CAP May increase to 600 mg three times daily after 2-3 days if 300 mg dose is not effective. Prov: ESTRADA PUGA MD 07/07/23 ESTRADA PUGA MD Jul 07, 2023 15:57
[2023-07-07] MEDS ORDERED: fentaNYL INJECTION 100 MCG/2 ML VIAL IM ONE (16:00)
[2023-07-07] MEDS ORDERED: PRD20T PO (16:03)
[2023-07-07] MEDS ORDERED: GABA300C PO (16:03)
[2023-07-07] MEDS ORDERED: OXYC1TAB87 PO (16:03)
[2023-07-07 16:22] VITALS: BP 129/80
== END 2023-07-07 16:22 | disposition home or self-care (01) ==
LOC: EDUNIT# 14:47 → ER 14:49
DX: C64.9 Malignant neoplasm of unspecified kidney, except renal pelvis (principal); M48.02 Spinal stenosis, cervical region; M79.601 Pain in right arm; E66.9 Obesity, unspecified; F17.210 Nicotine dependence, cigarettes, uncomplicated; Z68.37 Body mass index [BMI] 37.0-37.9, adult
CPT/HCPCS: 99284